=== PATIENT | female | born 1935 | race Two or more races ===

== ENCOUNTER 2018-07-27 11:44 | Inpatient (IN) | payer OTHER | END 2018-08-03 17:47 | disposition home or self-care (01) | LOC: JER 11:44 → JERBED 14:45 → J5S 16:19 ==

== ENCOUNTER 2019-02-04 18:55 | Inpatient (IN) | payer OTHER ==
[2019-02-04] MEDS ORDERED: ALBUTEROL SO4 2.5/IPRATROPIUM 0.5 INH SOL 3 ML VIAL.NEB. NEB ONE ×3 (19:04→21:04)
[2019-02-04] MEDS ORDERED: DEXAMETHASONE SOD PHOSPHATE 10 MG/1 ML VIAL ONE (19:05)
--- NOTE | 2019-02-04 19:23 | PDOC ---
History of Present Illness - General Stated Complaint: SOB Time Seen by Provider: 02/04/19 19:22 History Source: Patient Exam Limitations: No Limitations - History of Present Illness Initial Comments: 02/04/19 19:41 83yF w PMHx asthma, HTN, HLD, HFpEF, obesity presenting w SOB and cough. Had white productive cough for past 4 days. 2 days ago gradual onset SOB and BLE swelling. Did not take maintenance asthma medication for last 3d d/t cough and malaise. Rescue inhaler did not work. Last echo 07/30/18 showed normal LVEF 60-65 %, grade 1 diastolic dysfunction. Last admission for asthma exacerbation was over a year ago. Denies fever, nausea/vomiting, chest/AB pain. Does not have orthopedic physical therapist. Took lasix for a short time in the summertime, did not continue bc prescription ran out. Past History - Past Medical History Allergies/Adverse Reactions: Allergies Allergy/AdvReac Type Severity Reaction Status Date / Time amlodipine Allergy Verified 02/04/19 20:23 bacitracin Allergy Verified 02/04/19 20:23 Home Medications: Ambulatory Orders [place] 3-6-9 1,200 mg Softgel 2 tab PO BID 09/11/15 Fenofibrate [Lipofen] 1 tab PO DAILY 03/30/18 Fluticasone Propionate [Flovent Diskus] 1 puff IH BID 03/30/18 Losartan Potassium 1 tab PO DAILY 03/30/18 Montelukast Sodium [Singulair] 10 mg PO DAILY 03/30/18 Omeprazole 40 mg PO AM 07/27/18 Gabapentin 300 mg PO DAILY 02/04/19 Nifedipine [Nifedipine ER] 60 mg PO DAILY 02/04/19 Anemia: No Asthma: Yes Cancer: No Cardiac Disorders: No CVA: No COPD: No CHF: No DVT: No Dementia: No Diabetes: No Dialysis: No GI Disorders: Yes (GERD) Disorders: No HTN: Yes Hypercholesterolemia: No Kidney Stones: No Liver Disease: No Psychiatric Problems: No Seizures: No Thyroid Disease: No Lung CA: No - Surgical History Abdominal Surgery: No Appendectomy: No Cardiac Surgery: No Cholecystectomy: Yes Gastric Stapling: No GI Surgery: No Lung Surgery: No Neurologic Surgery: No - Immunization History Immunization Up to Date: Yes - Psycho Social/Smoking Cessation Hx Smoking Status: No Smoking History: Never smoked Have you smoked in the past 12 months: No Number of Cigarettes Smoked Daily: 0 Information on smoking cessation initiated: No Hx Alcohol Use: No Drug/Substance Use Hx: No Review of Systems - Review of Systems Constitutional: No: Chills, Fever HEENTM: No: Eye Pain, Ear Discharge, Nose Congestion, Hearing Loss Respiratory: Yes: Cough, Shortness of Breath Cardiac (ROS): No: Chest Pain, Palpitations ABD/GI: No: Abdominal Distended, Constipated, Diarrhea, Nausea, Vomiting : No: Burning, Dysuria, Frequency Musculoskeletal: No: Back Pain, Muscle Pain Integumentary: No: Bruising, Dryness, Erythema Neurological: No: Headache, Numbness, Seizure, Tingling Psychiatric: No: Anxiety, Depression, Stressors Endocrine: No: Excessive Sweating, Flushing, Intolerance to Cold, Intolerance to Heat Hematologic/Lymphatic: No: Anemia, Blood Clots *Physical Exam - Vital Signs Last Vital Signs Temp Pulse Resp BP Pulse Ox 99.2 F 89 24 H 135/63 99 02/04/19 19:08 02/04/19 19:08 02/04/19 19:08 02/04/19 19:08 02/04/19 19:08 - Physical Exam General Appearance: Yes: Nourished, Appropriately Dressed, Mild Distress HEENT: positive: EOMI, CHRIS, Normal Voice, Hearing Grossly Normal. negative: Scleral Icterus (R), Scleral Icterus (L), Nasal Congestion, Rhinorrhea Respiratory/Chest: positive: Wheezing. negative: Chest Tender, Respiratory Distress (on 5L NC), Accessory Muscle Use, Labored Respiration, Crackles, Rhonchi, Stridor Cardiovascular: positive: Regular Rhythm, Regular Rate, S1, S2. negative: Murmur Extremity: positive: Swelling (+1 pitting edema to knees krystal) Integumentary: positive: Normal Color Neurologic: positive: inspector hot forgings II-XII NML intact, Fully Oriented, Alert, Normal Response, Responsive. negative: Numbness, Confused, Disoriented ED Treatment Course - LABORATORY CBC & Chemistry Diagram: 02/04/19 20:10 02/04/19 20:10 Medical Decision Making - Medical Decision Making 02/04/19 19:50 CBC CMP trop BNP CXR shows R chest infiltrates, krystal basilar effusions EKG shows NSR, HR 86, QTc 428, no ST changes duonebx4, decadron given by EMS, 1 Mg, azithromycin, ceftriaxone for PNA, 20 IV lasix WBC 10.4 w left shift, trop 0.09, BNP 1600, BG 213 --- 83yF w PMHx asthma, HTN, HLD, HFpEF, obesity presenting w 2d gradual SOB, cough , BLE edema d/t asthma exacerbation (wheezing) and CHF exacerbation (BLE edema, elevated BNP, lung infiltrates) and PNA (L lung infiltrates, leukocytosis w L shift). Breathing 5L NC (baseline RA). Has elevated 1st trop 0.09. Low concern for ACS (chest pain/SOB not exacerbated w motion, NSR EKG). Admit tele hospitalist for asthma exacerbation, community acquired pneumonia, CHF exacerbation, elevated trop, hyperglycemia - pending 2nd trop PCP Dr Ang Discharge - Discharge Information Problems reviewed: Yes Clinical Impression/Diagnosis: Acute respiratory failure with hypoxia, Elevated troponin Asthma exacerbation Qualifiers: Asthma severity: moderate Asthma persistence: persistent Qualified Code(s): J45.41 - Moderate persistent asthma with (acute) exacerbation CHF exacerbation Qualifiers: Heart failure type: unspecified Qualified Code(s): I50.9 - Heart failure, unspecified Community acquired pneumonia Qualifiers: Laterality: right Lung location: unspecified part of lung Qualified Code(s): J18.9 - Pneumonia, unspecified organism Condition: Improved - Follow up/Referral - Patient Discharge Instructions - Post Discharge Activity
[2019-02-04] MEDS ORDERED: MAGNESIUM SULF 50% (8.12 MEQ/2 ML-1 GM VIAL) IVPB ONE (19:40)
[2019-02-04] MEDS ORDERED: MAGNESIUM 1GM/D5W - 1 GM/100 ML IVPB IVPB ONE (19:49)
--- NOTE | 2019-02-04 20:15 | PDOC ---
Documentation entered by Bella Castano SCRIBE, acting as scribe for Felicia Pool MD. Felicia Pool MD: This documentation has been prepared by the Omaira stone Brenda, SCRIBE, under my direction and personally reviewed by me in its entirety. I confirm that the documentation accurately reflects all work, treatment, procedures, and medical decision making performed by me. Attending Attestation - Resident Resident Name: Chucho Lomeli - ED Attending Attestation I have performed the following: I have examined & evaluated the patient, The case was reviewed & discussed with the resident, I agree w/resident's findings & plan, Exceptions are as noted - HPI HPI: 02/04/19 20:05 recent 83-year-old female who presents with shortness of breath that started late Monday early Monday. Past medical history hypertension asthma and sciatica - Physicial Exam PE: 02/04/19 20:59 Obesity 83-year-old female brought in by ambulance for shortness of breath for several days Head normocephalic atraumatic Neck is supple Lungs scattered wheezing and coarse rhonchi CVS regular rate and rhythm S1-S2 Abdomen protuberant Skin warm and dry Neuro alert and oriented x3 no gross focal neuro deficits appreciated - Medical Decision Making 02/04/19 20:10 Review of systems positive for dyspnea and coughAnd presents with significant tachypnea and respiratory rate of 24 Denies nausea vomiting ,fever ,chills 02/04/19 20:15 She does have orthopnea and sleeps upright on several pillows medications include Lasix, Flovent, Singulair [facility]ics gave her 3 duo nebs and Decadron she presents with expiratory wheezing Differential includes asthma,PNA,ACS,CHF plan cxr,trop.ekg.[id number],comp 02/04/19 21:01 Chest x-ray shows congestive heart failure cannot rule out infiltrate, small right pleural effusion Plan IV antibiotics ,diuretics,resp treatments
[2019-02-04 20:30] LABS: BASO % 0.2 % (0-2.0); HEMATOCRIT 36.9 % (32.4-45.2); HEMOGLOBIN 12.4 GM/dL (10.7-15.3); LYMPH % 6.9 % (8-40); MCH 30.8 pg (25.7-33.7); MCHC 33.6 g/dl (32.0-36.0); MEAN CELL VOLUME 91.4 fl (80-96); MEAN PLT VOLUME 9.3 fl (7.5-11.1); MONO % 7.4 % (3.8-10.2); NEUT % 85.5 % (42.8-82.8); PLATELET COUNT 172 K/MM3 (134-434); RBC 4.03 M/mm3 (3.60-5.2); RDW 13.9 % (11.6-15.6); WHITE BLOOD COUNT 10.4 K/mm3 (4.0-10.0)
[2019-02-04 20:45] LABS: INR 1.25 (0.83-1.09); PROTHROMBIN TIME (PATIENT) 14.8 SEC (9.7-13.0)
[2019-02-04] MEDS ORDERED: AZITHROMYCIN IVPB 500 MG in DEXTROSE 5%-WATER - 250 ML IVPB ONE (20:58)
[2019-02-04] MEDS ORDERED: CEFTRIAXONE 1,000 MG in DEXTROSE 5%-WATER - 50 ML IVPB ONE (20:58)
[2019-02-04 21:03] LABS: ALBUMIN 2.8 g/dl (3.4-5.0); BILIRUBIN,TOTAL 0.7 mg/dL (0.2-1); CALCIUM 8.4 mg/dL (8.5-10.1); CREATININE 1.1 mg/dL (0.55-1.3); N-TERMINAL BNP 1641.7 pg/ml (5-450); POTASSIUM 4.6 mmol/L (3.5-5.1); TOT PROT 6.5 g/dl (6.4-8.2)
[2019-02-04] MEDS ORDERED: FUROSEMIDE 40 MG/4 ML INJECTABLE VIAL IVPUSH ONE (21:03)
[2019-02-04] MEDS ORDERED: CEFTRIAXONE 1 GM/50 ML BAG ONE (21:04)
[2019-02-04] MEDS ORDERED: AZITHROMYCIN IVPB 500 MG/250 ML BAG IVPB ONE (21:04)
[2019-02-04] MEDS ORDERED: FUROSEMIDE 40 MG/4 ML INJECTABLE VIAL ONE (21:26)
--- NOTE | 2019-02-05 00:34 | HP ---
Admitting History and Physical - Primary Care Physician PCP: Dr. Nunez - Admission Chief Complaint: SOB, Cough, congestion History of Present Illness: 83 year old female with PMHx of COPD/asthma, HTN, HLD, HFpEF, obesity arrived to emergency room via EMS for SOB and cough, productive cough (clear phelgm) for past 4 days. Patient also noticed 2 days ago gradual onset SOB and BLE swelling. Did not take maintenance asthma medication for last 3d d/t cough and malaise. Rescue inhaler did not work. Last echo 07/30/18 showed normal LVEF 60-65 %, grade 1 diastolic dysfunction. Last admission for asthma exacerbation was over a year ago. Denies fever, nausea/vomiting, Chest pain. 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 Cardiovascular: Yes: CHF, HTN, Hyperlipdemia Pulmonary: Yes: Asthma, COPD Gastrointestinal: Yes: GERD - Past Surgical History Past Surgical History: Yes: Cholecystectomy - Smoking History Smoking history: Never smoked Have you smoked in the past 12 months: No Aproximately how many cigarettes per day: 0 - Alcohol/Substance Use Hx Alcohol Use: No History of Substance Use: reports: None - Social History Usual Living Arrangement: Yes: With Child ADL: Independent History of Recent Travel: No Home Medications - Allergies Allergies/Adverse Reactions: Allergies Allergy/AdvReac Type Severity Reaction Status Date / Time amlodipine Allergy Verified 02/04/19 20:23 bacitracin Allergy Verified 02/04/19 20:23 - Home Medications Home Medications: Ambulatory Orders [place] 3-6-9 1,200 mg Softgel 2 tab PO BID 09/11/15 Fenofibrate [Lipofen] 1 tab PO DAILY 03/30/18 Fluticasone Propionate [Flovent Diskus] 1 puff IH BID 03/30/18 Losartan Potassium 1 tab PO DAILY 03/30/18 Montelukast Sodium [Singulair] 10 mg PO DAILY 03/30/18 Omeprazole 40 mg PO AM 07/27/18 Gabapentin 300 mg PO DAILY 02/04/19 Nifedipine [Nifedipine ER] 60 mg PO DAILY 02/04/19 Family Medical History Family History: Denies Family Hx Cancer: Brother (brain ca) Review of Systems - Review of Systems Constitutional: reports: No Symptoms Eyes: reports: No Symptoms HENT: reports: No Symptoms Neck: reports: No Symptoms Cardiovascular: reports: No Symptoms Respiratory: reports: Cough, SOB, Wheezing Gastrointestinal: reports: No Symptoms Genitourinary: reports: No Symptoms Breasts: reports: No Symptoms Reported Musculoskeletal: reports: No Symptoms Integumentary: reports: No Symptoms Neurological: reports: No Symptoms Endocrine: reports: No Symptoms Hematology/Lymphatic: reports: No Symptoms Psychiatric: reports: No Symptoms Physical Examination Vital Signs: Vital Signs Temperature 100.2 F H 02/04/19 20:46 Pulse Rate 83 02/04/19 21:32 Respiratory Rate 22 H 02/04/19 21:32 Blood Pressure 139/57 L 02/04/19 21:32 O2 Sat by Pulse Oximetry (%) 99 02/04/19 21:32 Constitutional: Yes: No Distress, Calm Eyes: Yes: Conjunctiva Clear, EOM Intact HENT: Yes: Atraumatic, Normocephalic Neck: Yes: Supple, Trachea Midline Cardiovascular: Yes: Regular Rate and Rhythm, S1, S2 Respiratory: Yes: Regular, On Nasal O2, Rhonchi, SOB, Wheezes Gastrointestinal: Yes: Normal Bowel Sounds, Soft Musculoskeletal: Yes: WNL Extremities: Yes: WNL Edema: Yes Edema: LLE: 3+, RLE: 3+ Peripheral Pulses WNL: Yes Neurological: Yes: Alert, Oriented Labs: CBC, BMP 02/04/19 20:10 02/04/19 20:10 Imaging - Results Chest X-ray: Report Reviewed (CXR: Right side infiltrates, b/l effusions) EKG: Report Reviewed (EKG:shows NSR, HR 86, QTc 428, no ST changes) Problem List - Problems (1) Acute respiratory failure with hypoxia Code(s): J96.01 - ACUTE RESPIRATORY FAILURE WITH HYPOXIA (2) Community acquired pneumonia Code(s): J18.9 - PNEUMONIA, UNSPECIFIED ORGANISM Qualifiers: Laterality: right Lung location: unspecified part of lung Qualified Code( s): J18.9 - Pneumonia, unspecified organism (3) COPD with acute exacerbation Code(s): J44.1 - CHRONIC OBSTRUCTIVE PULMONARY DISEASE W (ACUTE) EXACERBATION (4) CHF exacerbation Code(s): I50.9 - HEART FAILURE, UNSPECIFIED Qualifiers: Heart failure type: unspecified Qualified Code(s): I50.9 - Heart failure, unspecified (5) Elevated troponin Code(s): R79.89 - OTHER SPECIFIED ABNORMAL FINDINGS OF BLOOD CHEMISTRY (6) HLD (hyperlipidemia) Code(s): E78.5 - HYPERLIPIDEMIA, UNSPECIFIED (7) GERD (gastroesophageal reflux disease) Code(s): K21.9 - GASTRO-ESOPHAGEAL REFLUX DISEASE WITHOUT ESOPHAGITIS (8) Peripheral neuropathy Code(s): G62.9 - POLYNEUROPATHY, UNSPECIFIED (9) Hypertension Code(s): I10 - ESSENTIAL (PRIMARY) HYPERTENSION Assessment/Plan 83 year old female with PMHx of COPD/asthma, HTN, HLD, HFpEF, obesity arrived to emergency room via EMS for SOB and cough, productive cough (clear phelgm) for past 4 days. Patient also noticed 2 days ago gradual onset SOB and BLE swelling. # Elevated trop likely demand ishemia r/o ACS EKG shows NSR, HR 86, QTc 428, no ST changes Trop 0.09, follow up # 2 - follow up cardiology #Acute respiratory failure # Community acquired Pneumonia # COPD exacerbation vs CHF exacerbation decadron 1Mg given by EMS CXR shows: right sided infiltrates, b/l effusions WBC 10.4 w left shift BNP 1641.7 In ED given : duonebx4, azithromycin, ceftriaxone, 20 IV lasix -continue with duoneb QID -Montelukast Sodium 10 mg PO DAILY -continue with solu-medrol 40 mg Q8h -continue with o2 via NC -continue with lasix 40 mg IV push daily -continue with Rocephin and azithromycin Monitor I&O fluids restriction Elevate extremity daily weight follow up cbc,cmp follow up pulmo consult follow up cardio consult follow up ID #[id number] -Fenofibrate 1 tab PO DAILY -Losartan Potassium 1 tab PO DAILY -Nifedipine 60 mg PO DAILY # GERD -Omeprazole 40 mg PO AM # Peripheral neuropathy -Gabapentin 300 mg PO DAILY Dispo: Tele inpatient FEN: Na restricted diet, monitor lytes VTE: Heparin SQ TID Visit type - Emergency Visit Emergency Visit: Yes ED Registration Date: 02/04/19 Care time: The patient presented to the Emergency Department on the above date and was hospitalized for further evaluation of their emergent condition. - New Patient This patient is new to me today: Yes Date on this admission: 02/05/19 - Critical Care Critical Care patient: No
[2019-02-05] MEDS ORDERED: ACETAMINOPHEN 325 MG TABLET (FP) PO PRN (00:48)
[2019-02-05] MEDS ORDERED: ACETAMINOPHEN 325 MG TABLET (FP) ONE (02:00)
[2019-02-05] MEDS ORDERED: methylPREDNISolone NA SUCC 40 MG/1 ML VIAL ONE ×2 (02:00→16:54)
[2019-02-05] MEDS: methylPREDNISolone NA SUCC 40 MG/1 ML VIAL IVPUSH SCH ×3 (02:07→17:25)
[2019-02-05] MEDS ORDERED: HEPARIN NA (PORCINE) 5,000 UNITS/ML 1ML VIAL ONE ×2 (06:29→15:14)
[2019-02-05] MEDS ORDERED: PANTOPRAZOLE SODIUM 40 MG VIAL ONE (06:30)
[2019-02-05] MEDS: HEPARIN NA (PORCINE) 5,000 UNITS/ML 1ML VIAL SQ SCH ×3 (06:32→21:32)
[2019-02-05] MEDS ORDERED: PATIENT'S OWN MEDICATION (NON-FORMULARY) (Omeprazole [Omeprazole] 40 MG) PO SCH (07:00)
[2019-02-05] MEDS: PANTOPRAZOLE 40 MG TABLET (FP) PO SCH (07:03)
[2019-02-05 07:13] LABS: HEMATOCRIT 35.5 % (32.4-45.2); MCHC 33.9 g/dl (32.0-36.0); MEAN CELL VOLUME 91.4 fl (80-96); MEAN PLT VOLUME 9.2 fl (7.5-11.1); PLATELET COUNT 178 K/MM3 (134-434); RBC 3.88 M/mm3 (3.60-5.2); RDW 13.8 % (11.6-15.6)
[2019-02-05 07:44] LABS: ALBUMIN 2.7 g/dl (3.4-5.0); BILIRUBIN,TOTAL 0.4 mg/dL (0.2-1); BLOOD UREA NITROGEN 25.5 mg/dL (7-18); CALCIUM 8.7 mg/dL (8.5-10.1); CREATININE 1.2 mg/dL (0.55-1.3); POTASSIUM 4.3 mmol/L (3.5-5.1); TOT PROT 6.5 g/dl (6.4-8.2)
[2019-02-05] MEDS: ALBUTEROL SO4 2.5/IPRATROPIUM 0.5 INH SOL 3 ML VIAL.NEB. NEB SCH ×4 (08:30→22:12)
[2019-02-05] MEDS ORDERED: ALBUTEROL SO4 2.5/IPRATROPIUM 0.5 INH SOL 3 ML VIAL.NEB. NEB ONE ×2 (08:53→12:31)
--- NOTE | 2019-02-05 09:45 | EKG ---
Test Reason : Blood Pressure : / mmHG Vent. Rate : 086 BPM Atrial Rate : 086 BPM P-R Int : 160 ms QRS Dur : 092 ms QT Int : 358 ms P-R-T Axes : 030 034 058 degrees QTc Int : 428 ms NORMAL SINUS RHYTHM NORMAL ECG WHEN COMPARED WITH ECG OF 28-AUG-2012 17:50, QT HAS LENGTHENED Confirmed by MD Landon, Rodrigo ([id number]) on 02/05/2019 9:44:55 AM Referred By: Confirmed By:Rodrigo Navarrete MD
[2019-02-05] MEDS ORDERED: FLUTICASONE PROPIONATE IH SCH (10:00)
[2019-02-05] MEDS ORDERED: OMEGA PO SCH (10:00)
[2019-02-05] MEDS ORDERED: PATIENT'S OWN MEDICATION (NON-FORMULARY) (Nifedipine [Nifedipine Er] 60 MG) PO SCH (10:00)
[2019-02-05] MEDS ORDERED: CEFTRIAXONE 1 GM/50 ML BAG ONE (10:01)
[2019-02-05] MEDS ORDERED: AZITHROMYCIN IVPB 500 MG/250 ML BAG IVPB ONE (10:01)
[2019-02-05] MEDS: AZITHROMYCIN IVPB 500 MG in DEXTROSE 5%-WATER - 250 ML IVPB SCH (10:05)
[2019-02-05] MEDS: CEFTRIAXONE 1 GM in DEXTROSE 5%-WATER - 50 ML IVPB SCH (10:10)
[2019-02-05] MEDS: GABAPENTIN 300 MG CAPSULE (FP) PO SCH (10:10)
[2019-02-05] MEDS: OMEGA-3 ACID ETHYL ESTERS (FATTY-ACIDS) 1 GM CAPSULE (FP) PO SCH ×2 (10:10→22:50)
[2019-02-05] MEDS: NIFEdipine E.R 60 MG TABLET (UD) PO SCH (10:10)
--- NOTE | 2019-02-05 11:11 | CON.CARD ---
Consult Consult Specialty:: Cardiology Referred by:: Medicine Reason for Consultation:: CHF - History of Present Illness Chief Complaint: shortness of breath History of Present Illness: 83F h/o COPD/asthma, HTN, HLD, chronic diastolic HF, obesity p/w dyspnea, cough. Started about a week ago, also noticed some swelling in her feet the last couple of days. Took her asthma inhaler a couple of days ago, didn't help so cme to ER. No chest pain, palps, dizziness.Feels better this morning. Does not see a press helper regularly. 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 Cardio/Vascular: Yes: CHF, HTN, Hyperlipdemia Pulmonary: Yes: Asthma, COPD Gastrointestinal: Yes: GERD - Past Surgical History Past Surgical History: Yes: Cholecystectomy - Alcohol/Substance Use Hx Alcohol Use: No History of Substance Use: reports: None - Smoking History Smoking history: Never smoked Have you smoked in the past 12 months: No Aproximately how many cigarettes per day: 0 - Social History ADL: Independent History of Recent Travel: No Home Medications - Allergies Allergies/Adverse Reactions: Allergies Allergy/AdvReac Type Severity Reaction Status Date / Time amlodipine Allergy Verified 02/04/19 20:23 bacitracin Allergy Verified 02/04/19 20:23 - Home Medications Home Medications: Ambulatory Orders [place] 3-6-9 1,200 mg Softgel 2 tab PO BID 09/11/15 Fenofibrate [Lipofen] 1 tab PO DAILY 03/30/18 Fluticasone Propionate [Flovent Diskus] 1 puff IH BID 03/30/18 Losartan Potassium 1 tab PO DAILY 03/30/18 Montelukast Sodium [Singulair] 10 mg PO DAILY 03/30/18 Omeprazole 40 mg PO AM 07/27/18 Gabapentin 300 mg PO DAILY 02/04/19 Nifedipine [Nifedipine ER] 60 mg PO DAILY 02/04/19 Family Medical History Family History: Unremarkable Review of Systems - Review of Systems Constitutional: reports: No Symptoms Eyes: reports: No Symptoms HENT: reports: No Symptoms Neck: reports: No Symptoms Cardiovascular: reports: No Symptoms Respiratory: reports: Cough Gastrointestinal: reports: No Symptoms Genitourinary: reports: No Symptoms Musculoskeletal: reports: No Symptoms Integumentary: reports: No Symptoms Neurological: reports: No Symptoms Endocrine: reports: No Symptoms Hematology/Lymphatic: reports: No Symptoms Psychiatric: reports: No Symptoms Vital Signs: Vital Signs Temperature 98.7 F 02/05/19 00:45 Pulse Rate 69 02/05/19 08:44 Respiratory Rate 23 H 02/05/19 08:44 Blood Pressure 137/97 02/05/19 08:44 O2 Sat by Pulse Oximetry (%) 97 02/05/19 08:44 Constitutional: Yes: No Distress, Calm Eyes: Yes: Conjunctiva Clear, EOM Intact HENT: Yes: Atraumatic, Normocephalic Neck: Yes: Supple, Trachea Midline Respiratory: Yes: Regular, Diminished (bases bilaterally) Gastrointestinal: Yes: Normal Bowel Sounds, Soft Cardiovascular: Yes: Regular Rate and Rhythm JVD: Yes Heart Sounds: Yes: S1, S2 Edema: Yes Edema: LLE: 1+, RLE: 1+ Integumentary: No: Jaundice Neurological: Yes: Alert, Oriented Psychiatric: No: Agitated - Other Data Labs, Other Data: CBC, BMP 02/05/19 06:35 02/05/19 06:35 INR, PTT INR 1.25 (0.83-1.09) H 02/04/19 20:10 Troponin, BNP 02/04/19 02/05/19 02/05/19 20:10 00:28 06:35 Troponin I 0.09 H 0.08 H 0.03 B-Natriuretic Peptide 1641.7 H Troponin, BNP 02/04/19 02/05/19 02/05/19 20:10 00:28 06:35 Troponin I 0.09 H 0.08 H 0.03 B-Natriuretic Peptide 1641.7 H Assessment/Plan EKG: sinus, nl intervals, no ischemic changes tele: sinus, PVCs echo 07/2018 nl LV/RV function, grade I diastolic dysfunction CXR: congestive changes, R infiltrate shortness of breath, acute on chronic diastolic HF - nl LV function on echo 07/2018 - continue IV lasix - monitor Cr, lytes, daily weights with diuresis elevated trop - indeterminate range, flat trend, EKG no ischemic changes - likely demand in setting of CHF exac - unlikely ACS COPD, possible PNA - manage per pulm, ID HTN - cont home meds HLD - cont fenofibrate
[2019-02-05] MEDS: FUROSEMIDE 40 MG/4 ML INJECTABLE VIAL IVPUSH SCH (11:20)
[2019-02-05] MEDS ORDERED: LOSARTAN POTASSIUM 50 MG TABLET (FP) ONE (12:31)
[2019-02-05] MEDS: LOSARTAN POTASSIUM 50 MG TABLET (FP) PO SCH (12:37)
[2019-02-05] MEDS: FENOFIBRIC ACID 135 MG CAP PO SCH (12:37)
[2019-02-05] MEDS: MOMETASONE FUROATE 110 MCG/IH INHALER IH SCH ×2 (12:37→22:49)
[2019-02-05] MEDS: INSULIN SLIDING SCALE (NOVOLOG) 1 VIAL SQ SCH ×2 (12:42→17:25)
--- NOTE | 2019-02-05 13:19 | CON.PULM ---
Consult Consult Specialty:: PULMONARY Referred by:: Dr Nunez Reason for Consultation:: COPD - History of Present Illness Chief Complaint: shortness of breath History of Present Illness: 83yo female with h/o HTN, hyperlipidemia, asthma/COPD, LV diastolic dysfunction who was admitted with worsening shortness of breath x 3 days. No chest pain or palpitations. No fevers, chills or sweats. Daughter sick at home. Did receive her flu shot. Denies cough but with wheezing. Last time she was on prednisone was in July. 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 Cardio/Vascular: Yes: CHF, HTN, Hyperlipdemia Pulmonary: Yes: Asthma, COPD Gastrointestinal: Yes: GERD - Past Surgical History Past Surgical History: Yes: Cholecystectomy - Alcohol/Substance Use Hx Alcohol Use: No History of Substance Use: reports: None - Smoking History Smoking history: Never smoked Have you smoked in the past 12 months: No Aproximately how many cigarettes per day: 0 - Social History ADL: Independent History of Recent Travel: No Home Medications - Allergies Allergies/Adverse Reactions: Allergies Allergy/AdvReac Type Severity Reaction Status Date / Time amlodipine Allergy Verified 02/04/19 20:23 bacitracin Allergy Verified 02/04/19 20:23 - Home Medications Home Medications: Ambulatory Orders [place] 3-6-9 1,200 mg Softgel 2 tab PO BID 09/11/15 Fenofibrate [Lipofen] 1 tab PO DAILY 03/30/18 Fluticasone Propionate [Flovent Diskus] 1 puff IH BID 03/30/18 Losartan Potassium 1 tab PO DAILY 03/30/18 Montelukast Sodium [Singulair] 10 mg PO DAILY 03/30/18 Omeprazole 40 mg PO AM 07/27/18 Gabapentin 300 mg PO DAILY 02/04/19 Nifedipine [Nifedipine ER] 60 mg PO DAILY 02/04/19 Review of Systems - Review of Systems Constitutional: denies: Fever, Weakness Eyes: denies: Recent Change in Vision HENT: denies: Nasal Congestion, Throat Pain Neck: denies: Stiffness, Tenderness Cardiovascular: reports: Chest Pain, Edema, Shortness of Breath. denies: Palpitations Respiratory: reports: SOB, SOB on Exertion, Wheezing. denies: Cough, Hemoptysis Gastrointestinal: denies: Abdominal Pain, Nausea, Vomiting Genitourinary: denies: Dysuria, Hematuria Neurological: denies: Dizziness, Headache Endocrine: denies: Unexplained Weight Loss Physical Exam Vital Sings: Vital Signs Temperature 98.7 F 02/05/19 00:45 Pulse Rate 67 02/05/19 12:52 Respiratory Rate 26 H 02/05/19 12:52 Blood Pressure 120/67 02/05/19 12:52 O2 Sat by Pulse Oximetry (%) 95 02/05/19 12:52 Constitutional: Yes: Calm Eyes: Yes: Conjunctiva Clear, EOM Intact HENT: Yes: Atraumatic, Normocephalic Neck: Yes: Supple, Trachea Midline Cardiovascular: Yes: Regular Rate and Rhythm Respiratory: Yes: Rhonchi ...Clubbing: No Gastrointestinal: Yes: Normal Bowel Sounds, Soft. No: Tenderness Edema: Yes Neurological: Yes: Alert, Oriented Labs: CBC, BMP 02/05/19 06:35 02/05/19 06:35 Imaging - Results Chest X-ray: Report Reviewed, Image Reviewed (right sided infiltrates, pulmonary vascular congestion) Problem List - Problems (1) Pneumonia Code(s): J18.9 - PNEUMONIA, UNSPECIFIED ORGANISM (2) COPD with acute exacerbation Code(s): J44.1 - CHRONIC OBSTRUCTIVE PULMONARY DISEASE W (ACUTE) EXACERBATION Assessment/Plan Pneumonia Acute COPD Exacerbation Acute on Chronic Diastolic Heart Failure HTN Hyperlipidemia - IV antibiotics - f/u cultures - inhaled bronchodilators - short course of medrol - O2 to keep SpO2 >90% - lasix - monitor urine output, creatinine - DVT prophylaxis Thank you for this consult Elvis Wilkins MD
--- NOTE | 2019-02-05 13:26 | PN ---
Progress Note (short form) - Note Progress Note: Examined in ER awake and alert coughing+ dry SOB better Vital Signs - 24 hr 02/04/19 02/04/19 02/04/19 19:08 20:09 20:41 Temperature 99.2 F Pulse Rate 89 Pulse Rate [ Radial] Respiratory 24 H Rate Blood Pressure 135/63 Blood Pressure [Left Arm] O2 Sat by Pulse 99 94 L 95 Oximetry (%) 02/04/19 02/04/19 02/04/19 20:46 20:49 21:32 Temperature 100.2 F H Pulse Rate Pulse Rate [ 82 83 Radial] Respiratory 24 H 22 H Rate Blood Pressure Blood Pressure 135/52 L 139/57 L [Left Arm] O2 Sat by Pulse 95 99 Oximetry (%) 02/05/19 02/05/19 02/05/19 00:45 01:52 03:29 Temperature 98.7 F Pulse Rate Pulse Rate [ 64 63 62 Radial] Respiratory 22 H 18 Rate Blood Pressure Blood Pressure 129/55 L 118/63 136/62 [Left Arm] O2 Sat by Pulse 98 98 96 Oximetry (%) 02/05/19 02/05/19 02/05/19 04:38 08:44 12:52 Temperature Pulse Rate 69 Pulse Rate [ 63 67 Radial] Respiratory 22 H 23 H 26 H Rate Blood Pressure 137/97 Blood Pressure 126/69 120/67 [Left Arm] O2 Sat by Pulse 97 97 95 Oximetry (%) Current Medications Generic Name Dose Route Start Last Admin Trade Name Freq PRN Reason Stop Dose Admin Acetaminophen 650 mg 02/05/19 00:48 02/05/19 02:07 Tylenol - PO 650 mg Q6H PRN Administration PAIN LEVEL 1-5 Albuterol/Ipratropium 1 amp 02/05/19 08:00 02/05/19 12:37 Duoneb - NEB 1 amp RQID ANDRADE Administration Fenofibric Acid 135 mg 02/05/19 10:45 02/05/19 12:37 Trilipix - PO Not Given DAILY ANDRADE Furosemide 40 mg 02/05/19 10:00 02/05/19 11:20 Lasix Injection - IVPUSH 40 mg DAILY ANDRADE Administration Gabapentin 300 mg 02/05/19 10:00 02/05/19 10:10 Neurontin - PO 300 mg DAILY ANDRADE Administration Heparin Sodium (Porcine) 5,000 unit 02/05/19 06:00 02/05/19 06:32 Heparin - SQ 5,000 unit TID ANDRADE Administration Ceftriaxone Sodium 1 gm/ 50 mls @ 100 mls/hr 02/05/19 10:00 02/05/19 10:10 Dextrose IVPB 02/11/19 23:59 100 mls/hr DAILY ANDRADE Administration Protocol Azithromycin 500 mg/ Dextrose 250 mls @ 250 mls/hr 02/05/19 10:00 02/05/19 10 :05 IVPB 02/11/19 20:40 250 mls/hr DAILY ANDRADE Administration Insulin Aspart 1 vial 02/05/19 11:00 02/05/19 12:42 Novolog Vial Sliding Scale - SQ 10 unit TIDAC ANDRADE Administration Protocol Losartan Potassium 100 mg 02/05/19 10:45 02/05/19 12:37 Cozaar - PO 100 mg DAILY ANDRADE Administration Methylprednisolone Sodium Succinate 40 mg 02/05/19 02:00 02/05/19 10:19 Solu-Medrol - IVPUSH 40 mg Q8H-IV ANDRADE Administration Mometasone Furoate 1 puff 02/05/19 10:00 02/05/19 12:37 Asmanex 110mcg - IH Not Given BID ANDRADE Montelukast Sodium 10 mg 02/05/19 22:00 Singulair - PO HS ANDRADE Nifedipine 60 mg 02/05/19 10:00 02/05/19 10:10 Procardia Xl - PO 60 mg DAILY ANDRADE Administration [id number] Ethyl Esters 2 gm 02/05/19 10:00 02/05/19 10:10 Lovaza - PO 2 gm BID ANDRADE Administration Pantoprazole Sodium 40 mg 02/05/19 07:00 02/05/19 07:03 Protonix - PO 40 mg AM ANDRADE Administration Laboratory Results - last 24 hr 02/04/19 02/04/19 02/04/19 20:10 20:10 20:10 WBC 10.4 H RBC 4.03 Hgb 12.4 Hct 36.9 MCV 91.4 MCH 30.8 MCHC 33.6 RDW 13.9 Plt Count 172 D MPV 9.3 D Absolute Neuts (auto) 8.9 H Neutrophils % 85.5 H D Lymphocytes % 6.9 L D Monocytes % 7.4 Eosinophils % 0.0 D Basophils % 0.2 Nucleated RBC % 0 PT with INR 14.80 H INR 1.25 H Sodium 140 Potassium 4.6 Chloride 107 Carbon Dioxide 25 Anion Gap 8 BUN 20.0 H Creatinine 1.1 Est GFR (CKD-EPI)AfAm 54.53 Est GFR (CKD-EPI)NonAf 47.05 POC Glucometer Random Glucose 213 H Calcium 8.4 L Total Bilirubin 0.7 AST 51 H ALT 32 Alkaline Phosphatase 65 Creatine Kinase 152 Creatine Kinase Index 1.5 CK-MB (CK-2) 2.3 Troponin I 0.09 H B-Natriuretic Peptide 1641.7 H Total Protein 6.5 Albumin 2.8 L Influenza A (Rapid) Influenza B (Rapid) 02/05/19 02/05/19 02/05/19 00:28 06:35 06:35 WBC 7.0 RBC 3.88 Hgb 12.0 Hct 35.5 MCV 91.4 MCH 31.0 MCHC 33.9 RDW 13.8 Plt Count 178 MPV 9.2 Absolute Neuts (auto) Neutrophils % Lymphocytes % Monocytes % Eosinophils % Basophils % Nucleated RBC % PT with INR INR Sodium 140 Potassium 4.3 Chloride 105 Carbon Dioxide 26 Anion Gap 9 BUN 25.5 H Creatinine 1.2 Est GFR (CKD-EPI)AfAm 49.08 Est GFR (CKD-EPI)NonAf 42.35 POC Glucometer Random Glucose 271 H Calcium 8.7 Total Bilirubin 0.4 AST 22 ALT 28 Alkaline Phosphatase 64 Creatine Kinase Creatine Kinase Index CK-MB (CK-2) Troponin I 0.08 H B-Natriuretic Peptide Total Protein 6.5 Albumin 2.7 L Influenza A (Rapid) Influenza B (Rapid) 02/05/19 02/05/19 02/05/19 06:35 11:20 12:41 WBC RBC Hgb Hct MCV MCH MCHC RDW Plt Count MPV Absolute Neuts (auto) Neutrophils % Lymphocytes % Monocytes % Eosinophils % Basophils % Nucleated RBC % PT with INR INR Sodium Potassium Chloride Carbon Dioxide Anion Gap BUN Creatinine Est GFR (CKD-EPI)AfAm Est GFR (CKD-EPI)NonAf POC Glucometer 356 Random Glucose Calcium Total Bilirubin AST ALT Alkaline Phosphatase Creatine Kinase Creatine Kinase Index CK-MB (CK-2) Troponin I 0.03 B-Natriuretic Peptide Total Protein Albumin Influenza A (Rapid) Negative Influenza B (Rapid) Negative S1 S2 RRR Lungs ronchi B.L crackles+ JVD+ Abd- soft, obese, NT trace edema PLAN IV Lasix monitor renal function , I and O iv solumedrol nebs IV antibiotics urine antigens negative Influenza negative Problem List - Problems (1) Acute respiratory failure with hypoxia Code(s): J96.01 - ACUTE RESPIRATORY FAILURE WITH HYPOXIA (2) Asthma exacerbation Code(s): J45.901 - UNSPECIFIED ASTHMA WITH (ACUTE) EXACERBATION Qualifiers: Asthma severity: moderate Asthma persistence: persistent Qualified Code(s ): J45.41 - Moderate persistent asthma with (acute) exacerbation (3) CHF exacerbation Code(s): I50.9 - HEART FAILURE, UNSPECIFIED Qualifiers: Heart failure type: unspecified Qualified Code(s): I50.9 - Heart failure, unspecified (4) COPD with acute exacerbation Code(s): J44.1 - CHRONIC OBSTRUCTIVE PULMONARY DISEASE W (ACUTE) EXACERBATION (5) Community acquired pneumonia Code(s): J18.9 - PNEUMONIA, UNSPECIFIED ORGANISM Qualifiers: Laterality: right Lung location: unspecified part of lung Qualified Code( s): J18.9 - Pneumonia, unspecified organism (6) GERD (gastroesophageal reflux disease) Code(s): K21.9 - GASTRO-ESOPHAGEAL REFLUX DISEASE WITHOUT ESOPHAGITIS (7) HLD (hyperlipidemia) Code(s): E78.5 - HYPERLIPIDEMIA, UNSPECIFIED
--- NOTE | 2019-02-05 14:46 | CON.ID ---
Consult - History of Present Illness History of Present Illness: 83 y.o. female with PMH of asthma/COPD, diastolic HF, HTN, HLD, and cellulitis presents with c/o SOB, cough and weakness that started one week ago. States that she took several days off from work since. In addition she has been having some b/l LE edema. In the past she on Lasix but states she was taken off of it about 5 months ago. Denies recent travel but states her daughter has had a cough as well. Pt states she had her flu vaccination a few months ago. Denies fever or chills, rhinorrhea, sore throat. Denies abd pain/n/v/d. In the ER she was noted to be wheezing, in mild respiratory distress, with temp of 100.4F and wbc of 10.4K. CXR reveals congestive changes as well as Rt sided pulmonary infiltrates. In addition her glucose was significantly elevated. She denies previous diagnosis of DM. Currently she states she is feeling better. - History Source History Provided By: Patient - Past Medical History [employer]: Yes: Peripheral Neuropathy Cardio/Vascular: Yes: CHF, HTN, Hyperlipdemia Pulmonary: Yes: Asthma, COPD Gastrointestinal: Yes: GERD - Past Surgical History Past Surgical History: Yes: Cholecystectomy - Alcohol/Substance Use Hx Alcohol Use: No History of Substance Use: reports: None - Smoking History Smoking history: Never smoked Have you smoked in the past 12 months: No Aproximately how many cigarettes per day: 0 - Social History ADL: Independent History of Recent Travel: No Home Medications - Allergies Allergies/Adverse Reactions: Allergies Allergy/AdvReac Type Severity Reaction Status Date / Time amlodipine Allergy Verified 02/04/19 20:23 bacitracin Allergy Verified 02/04/19 20:23 - Home Medications Home Medications: Ambulatory Orders [place] 3-6-9 1,200 mg Softgel 2 tab PO BID 09/11/15 Fenofibrate [Lipofen] 1 tab PO DAILY 03/30/18 Fluticasone Propionate [Flovent Diskus] 1 puff IH BID 03/30/18 Losartan Potassium 1 tab PO DAILY 03/30/18 Montelukast Sodium [Singulair] 10 mg PO DAILY 03/30/18 Omeprazole 40 mg PO AM 07/27/18 Gabapentin 300 mg PO DAILY 02/04/19 Nifedipine [Nifedipine ER] 60 mg PO DAILY 02/04/19 Review of Systems - Review of Systems Constitutional: reports: Weakness. denies: No Symptoms, Chills, Diaphoresis, Fever, Lethargy, Loss of Appetite, Malaise, Night Sweats, Unintentional Wgt. Loss, Other Eyes: reports: No Symptoms. denies: Blind Spots, Blurred Vision, Double Vision , Eye Pain, Floaters, Photophobia, Recent Change in Vision, Other HENT: reports: No Symptoms. denies: Difficult Swallowing, Ear Discharge, Ear Pain, Epistaxis, Gingival Bleeding, Hearing Loss, Mouth Swelling, Nasal Congestion, Ocular Prosthesis, Throat Pain, Toothache, Ringing in Ears, Other Neck: reports: No Symptoms. denies: Decreased ROM, Lumps, Pain on Movement, Stiffness, Swollen Glands, Tenderness, Other Cardiovascular: reports: No Symptoms, Shortness of Breath. denies: Chest Pain, Edema, Palpitations, Other Respiratory: reports: Cough, SOB Gastrointestinal: reports: No Symptoms. denies: Abdominal Pain, Bloating, Constipation, Diarrhea, Dysphagia, Indigestion, Melena, Nausea, Rectal Bleeding , Vomiting, Vomiting Blood, Other Genitourinary: reports: No Symptoms. denies: Burning, Discharge, Dysuria, Flank Pain, Frequency, Hematuria, Incontinence, Lesions, Menses, Pain, Testicular Mass, Testicular Pain, Testicular Swelling, Urgency, Vaginal Bleeding , Other Breasts: reports: No Symptoms Reported. denies: See HPI, Breast Implants, Discharge from Nipple, Lumps, Pain, Skin Changes, Other Musculoskeletal: reports: No Symptoms. denies: Back Pain, Crepitus, Decreased ROM, Extremity Pain, Joint Pain, Joint Swelling, Muscle Pain, Muscle Cramps, Muscle Weakness, Other Integumentary: reports: No Symptoms. denies: Blister, Bruising, Change in Color , Eczema, Erythema, Incision, Lesions, Lump, Pallor, Pruritis, Rash, Wound, Other Neurological: reports: No Symptoms. denies: Change in LOC, Change in Speech, Confusion, Dizziness, Headache, Incoordination, Numbness, Parasthesia, Pre- Existing Deficit, Seizure, Syncope, Tremors, Unsteady Gait, Weakness, Other Endocrine: reports: No Symptoms. denies: Excessive Sweating, Flushing, Increased Hunger, Increased Thirst, Intolerance to Cold, Intolerance to Heat, Unexplained Weight Gain, Unexplained Weight Loss, Other Hematology/Lymphatic: reports: No Symptoms. denies: Easily Bruised, Excessive Bleeding, Swollen Glands, Other Psychiatric: reports: No Symptoms. denies: Altered Sleep Pattern, Anxiety, Depression, Hallucinations, Panic, Paranoia, Suicidal, Other Physical Exam Vital Signs: Vital Signs Temperature 98.7 F 02/05/19 00:45 Pulse Rate 67 02/05/19 12:52 Respiratory Rate 26 H 02/05/19 12:52 Blood Pressure 120/67 02/05/19 12:52 O2 Sat by Pulse Oximetry (%) 95 02/05/19 12:52 Constitutional: Yes: Well Nourished, No Distress, Calm Eyes: Yes: Conjunctiva Clear, EOM Intact HENT: Yes: Atraumatic, Normocephalic Neck: Yes: Supple, Trachea Midline Cardiovascular: Yes: Regular Rate and Rhythm Respiratory: Yes: Rhonchi, Wheezes Gastrointestinal: Yes: Normal Bowel Sounds, Soft, Abdomen, Obese Renal/: Yes: WNL Musculoskeletal: Yes: WNL Extremities: Yes: WNL Edema: Yes Edema: LLE: 1+, RLE: 1+ Peripheral Pulses WNL: Yes Integumentary: Yes: WNL Neurological: Yes: Alert, Oriented Psychiatric: Yes: Alert Labs: CBC, BMP 02/05/19 06:35 02/05/19 06:35 Laboratory Tests 02/04/19 02/04/19 02/04/19 20:10 20:10 20:10 WBC 10.4 H RBC 4.03 Hgb 12.4 Hct 36.9 MCV 91.4 MCH 30.8 MCHC 33.6 RDW 13.9 Plt Count 172 D MPV 9.3 D Absolute Neuts (auto) 8.9 H Neutrophils % 85.5 H D Lymphocytes % 6.9 L D Monocytes % 7.4 Eosinophils % 0.0 D Basophils % 0.2 Nucleated RBC % 0 PT with INR 14.80 H INR 1.25 H Sodium 140 Potassium 4.6 Chloride 107 Carbon Dioxide 25 Anion Gap 8 BUN 20.0 H Creatinine 1.1 Est GFR (CKD-EPI)AfAm 54.53 Est GFR (CKD-EPI)NonAf 47.05 POC Glucometer Random Glucose 213 H Calcium 8.4 L Total Bilirubin 0.7 AST 51 H ALT 32 Alkaline Phosphatase 65 Creatine Kinase 152 Creatine Kinase Index 1.5 CK-MB (CK-2) 2.3 Troponin I 0.09 H B-Natriuretic Peptide 1641.7 H Total Protein 6.5 Albumin 2.8 L Influenza A (Rapid) Influenza B (Rapid) 02/05/19 02/05/19 02/05/19 00:28 06:35 06:35 WBC 7.0 RBC 3.88 Hgb 12.0 Hct 35.5 MCV 91.4 MCH 31.0 MCHC 33.9 RDW 13.8 Plt Count 178 MPV 9.2 Absolute Neuts (auto) Neutrophils % Lymphocytes % Monocytes % Eosinophils % Basophils % Nucleated RBC % PT with INR INR Sodium 140 Potassium 4.3 Chloride 105 Carbon Dioxide 26 Anion Gap 9 BUN 25.5 H Creatinine 1.2 Est GFR (CKD-EPI)AfAm 49.08 Est GFR (CKD-EPI)NonAf 42.35 POC Glucometer Random Glucose 271 H Calcium 8.7 Total Bilirubin 0.4 AST 22 ALT 28 Alkaline Phosphatase 64 Creatine Kinase Creatine Kinase Index CK-MB (CK-2) Troponin I 0.08 H B-Natriuretic Peptide Total Protein 6.5 Albumin 2.7 L Influenza A (Rapid) Influenza B (Rapid) 02/05/19 02/05/19 02/05/19 06:35 11:20 12:41 WBC RBC Hgb Hct MCV MCH MCHC RDW Plt Count MPV Absolute Neuts (auto) Neutrophils % Lymphocytes % Monocytes % Eosinophils % Basophils % Nucleated RBC % PT with INR INR Sodium Potassium Chloride Carbon Dioxide Anion Gap BUN Creatinine Est GFR (CKD-EPI)AfAm Est GFR (CKD-EPI)NonAf POC Glucometer 356 Random Glucose Calcium Total Bilirubin AST ALT Alkaline Phosphatase Creatine Kinase Creatine Kinase Index CK-MB (CK-2) Troponin I 0.03 B-Natriuretic Peptide Total Protein Albumin Influenza A (Rapid) Negative Influenza B (Rapid) Negative Imaging - Results Chest X-ray: Report Reviewed Problem List - Problems (1) Acute respiratory failure with hypoxia Code(s): J96.01 - ACUTE RESPIRATORY FAILURE WITH HYPOXIA (2) Asthma exacerbation Code(s): J45.901 - UNSPECIFIED ASTHMA WITH (ACUTE) EXACERBATION Qualifiers: Asthma severity: moderate Asthma persistence: persistent Qualified Code(s ): J45.41 - Moderate persistent asthma with (acute) exacerbation (3) CHF exacerbation Code(s): I50.9 - HEART FAILURE, UNSPECIFIED Qualifiers: Heart failure type: unspecified Qualified Code(s): I50.9 - Heart failure, unspecified (4) Community acquired pneumonia Code(s): J18.9 - PNEUMONIA, UNSPECIFIED ORGANISM Qualifiers: Laterality: right Lung location: unspecified part of lung Qualified Code( s): J18.9 - Pneumonia, unspecified organism (5) GERD (gastroesophageal reflux disease) Code(s): K21.9 - GASTRO-ESOPHAGEAL REFLUX DISEASE WITHOUT ESOPHAGITIS (6) HLD (hyperlipidemia) Code(s): E78.5 - HYPERLIPIDEMIA, UNSPECIFIED (7) Hypertension Code(s): I10 - ESSENTIAL (PRIMARY) HYPERTENSION (8) Venous insufficiency Code(s): I87.2 - VENOUS INSUFFICIENCY (CHRONIC) (PERIPHERAL) Assessment/Plan 83 y.o. female with PMH of asthma/COPD, diastolic HF, HTN, HLD, and cellulitis presents with c/o SOB, cough and weakness that started one week ago PNA Asthma/COPD exacerbation CHF Fever Hyperglycemia HTN HLD Obesity -- continue Ceftriaxone/Azithromycin -- Urinary Ag neg -- on BD, steroids -- monitor temps/vitals Will follow Thank you
[2019-02-05] MEDS: MONTELUKAST NA 10 MG TABLET PO SCH (21:32)
[2019-02-06 02:05] VITALS: BMI 35.7
[2019-02-06] MEDS: methylPREDNISolone NA SUCC 40 MG/1 ML VIAL IVPUSH SCH ×3 (02:16→17:27)
[2019-02-06] MEDS: INSULIN SLIDING SCALE (NOVOLOG) 1 VIAL SQ SCH ×3 (06:10→17:26)
[2019-02-06] MEDS: HEPARIN NA (PORCINE) 5,000 UNITS/ML 1ML VIAL SQ SCH ×3 (06:10→21:13)
[2019-02-06] MEDS: PANTOPRAZOLE 40 MG TABLET (FP) PO SCH (06:10)
[2019-02-06 06:59] LABS: HEMATOCRIT 34.9 % (32.4-45.2); HEMOGLOBIN 11.8 GM/dL (10.7-15.3); LYMPH % 10.2 % (8-40); MCH 30.5 pg (25.7-33.7); MCHC 33.8 g/dl (32.0-36.0); MEAN CELL VOLUME 90.3 fl (80-96); MONO % 5.1 % (3.8-10.2); NEUT % 84.7 % (42.8-82.8); PLATELET COUNT 213 K/MM3 (134-434); RBC 3.87 M/mm3 (3.60-5.2); RDW 13.8 % (11.6-15.6); WHITE BLOOD COUNT 6.8 K/mm3 (4.0-10.0)
[2019-02-06 07:16] LABS: ALBUMIN 2.6 g/dl (3.4-5.0); BILIRUBIN,TOTAL 0.3 mg/dL (0.2-1); CALCIUM 9.1 mg/dL (8.5-10.1); CREATININE 1.1 mg/dL (0.55-1.3); POTASSIUM 4.5 mmol/L (3.5-5.1); TOT PROT 6.4 g/dl (6.4-8.2)
[2019-02-06] MEDS: ALBUTEROL SO4 2.5/IPRATROPIUM 0.5 INH SOL 3 ML VIAL.NEB. NEB SCH ×4 (08:03→20:46)
[2019-02-06] MEDS ORDERED: DEXTROSE 5%-WATER - 50 ML IVPB ONE (09:17)
[2019-02-06] MEDS ORDERED: cefTRIAXone SODIUM 1 GM VIAL ONE (09:17)
[2019-02-06] MEDS ORDERED: PT OWN MED DRAWER 7, Y5N ONE ×2 (09:18→09:31)
[2019-02-06] MEDS: NIFEdipine E.R 60 MG TABLET (UD) PO SCH (09:23)
[2019-02-06] MEDS: FENOFIBRIC ACID 135 MG CAP PO SCH (09:23)
[2019-02-06] MEDS: GABAPENTIN 300 MG CAPSULE (FP) PO SCH (09:23)
[2019-02-06] MEDS: LOSARTAN POTASSIUM 50 MG TABLET (FP) PO SCH (09:23)
[2019-02-06] MEDS: OMEGA-3 ACID ETHYL ESTERS (FATTY-ACIDS) 1 GM CAPSULE (FP) PO SCH ×2 (09:23→21:14)
[2019-02-06] MEDS: FUROSEMIDE 40 MG/4 ML INJECTABLE VIAL IVPUSH SCH (09:24)
[2019-02-06] MEDS: CEFTRIAXONE 1 GM in DEXTROSE 5%-WATER - 50 ML IVPB SCH (09:24)
[2019-02-06] MEDS: MOMETASONE FUROATE 110 MCG/IH INHALER IH SCH ×2 (09:25→21:14)
[2019-02-06] MEDS: AZITHROMYCIN IVPB 500 MG in DEXTROSE 5%-WATER - 250 ML IVPB SCH (10:05)
[2019-02-06] MEDS: AZITHROMYCIN IVPB 500 MG/250 ML BAG IVPB SCH (10:35)
--- NOTE | 2019-02-06 11:35 | PN ---
Progress Note (short form) - Note Progress Note: Examined awake and alert coughing+ dry seated upright in chair SOB better Vital Signs - 24 hr 02/05/19 02/05/19 02/05/19 12:52 19:41 22:00 Temperature 97.3 F L Pulse Rate 66 Pulse Rate [ 67 68 Radial] Respiratory 26 H 20 20 Rate Blood Pressure 120/68 Blood Pressure 120/67 145/65 [Left Arm] O2 Sat by Pulse 95 97 93 L Oximetry (%) 02/06/19 02/06/19 02/06/19 02:00 06:49 10:00 Temperature 97.9 F 97.4 F L 97.4 F L Pulse Rate 78 77 83 Pulse Rate [ Radial] Respiratory 18 18 18 Rate Blood Pressure 121/45 L 145/87 126/66 Blood Pressure [Left Arm] O2 Sat by Pulse Oximetry (%) Current Medications Generic Name Dose Route Start Last Admin Trade Name Freq PRN Reason Stop Dose Admin Acetaminophen 650 mg 02/05/19 00:48 02/05/19 02:07 Tylenol - PO 650 mg Q6H PRN Administration PAIN LEVEL 1-5 Albuterol/Ipratropium 1 amp 02/05/19 08:00 02/06/19 08:03 Duoneb - NEB 1 amp RQID ANDRADE Administration Fenofibric Acid 135 mg 02/05/19 10:45 02/06/19 09:23 Trilipix - PO 135 mg DAILY ANDRADE Administration Furosemide 40 mg 02/05/19 10:00 02/06/19 09:24 Lasix Injection - IVPUSH 40 mg DAILY ANDRADE Administration Gabapentin 300 mg 02/05/19 10:00 02/06/19 09:23 Neurontin - PO 300 mg DAILY ANDRADE Administration Heparin Sodium (Porcine) 5,000 unit 02/05/19 06:00 02/06/19 06:10 Heparin - SQ 5,000 unit TID ANDRADE Administration Ceftriaxone Sodium 1 gm/ 50 mls @ 100 mls/hr 02/05/19 10:00 02/06/19 09:24 Dextrose IVPB 02/11/19 23:59 100 mls/hr DAILY ANDRADE Administration Protocol Azithromycin 500 mg in 250 mls @ 250 mls/hr 02/06/19 10:15 02/06/19 10:35 Zithromax 500mg Ivpb (Pre-Docked) IVPB 02/11/19 11:00 250 mls/hr DAILY ANDRADE Administration Insulin Aspart 1 vial 02/05/19 11:00 02/06/19 06:10 Novolog Vial Sliding Scale - SQ 4 unit TIDAC ANDRADE Administration Protocol Losartan Potassium 100 mg 02/05/19 10:45 02/06/19 09:23 Cozaar - PO 100 mg DAILY ANDRADE Administration Methylprednisolone Sodium Succinate 40 mg 02/05/19 02:00 02/06/19 09:24 Solu-Medrol - IVPUSH 40 mg Q8H-IV ANDRADE Administration Mometasone Furoate 1 puff 02/05/19 10:00 02/06/19 09:25 Asmanex 110mcg - IH 1 puff BID ANDRADE Administration Montelukast Sodium 10 mg 02/05/19 22:00 02/05/19 21:32 Singulair - PO 10 mg HS ANDRADE Administration Nifedipine 60 mg 02/05/19 10:00 02/06/19 09:23 Procardia Xl - PO 60 mg DAILY ANDRADE Administration Ifmsb-4-Ctwy Ethyl Esters 2 gm 02/05/19 10:00 02/06/19 09:23 Lovaza - PO 2 gm BID ANDRADE Administration Pantoprazole Sodium 40 mg 02/05/19 07:00 02/06/19 06:10 Protonix - PO 40 mg AM ANDRADE Administration Laboratory Results - last 24 hr 02/05/19 02/05/19 02/05/19 11:20 12:41 17:14 WBC RBC Hgb Hct MCV MCH MCHC RDW Plt Count MPV Absolute Neuts (auto) Neutrophils % Lymphocytes % Monocytes % Eosinophils % Basophils % Nucleated RBC % Sodium Potassium Chloride Carbon Dioxide Anion Gap BUN Creatinine Est GFR (CKD-EPI)AfAm Est GFR (CKD-EPI)NonAf POC Glucometer 356 262 Random Glucose Hemoglobin A1c % Calcium Total Bilirubin AST ALT Alkaline Phosphatase Total Protein Albumin Influenza A (Rapid) Negative Influenza B (Rapid) Negative 02/06/19 02/06/19 02/06/19 05:35 05:35 05:35 WBC 6.8 RBC 3.87 Hgb 11.8 Hct 34.9 MCV 90.3 MCH 30.5 MCHC 33.8 RDW 13.8 Plt Count 213 MPV 9.0 Absolute Neuts (auto) 5.7 Neutrophils % 84.7 H Lymphocytes % 10.2 D Monocytes % 5.1 Eosinophils % 0.0 Basophils % 0.0 Nucleated RBC % 0 Sodium 137 Potassium 4.5 Chloride 102 Carbon Dioxide 27 Anion Gap 8 BUN 40.0 H Creatinine 1.1 Est GFR (CKD-EPI)AfAm 54.53 Est GFR (CKD-EPI)NonAf 47.05 POC Glucometer Random Glucose 227 H Hemoglobin A1c % 6.0 Calcium 9.1 Total Bilirubin 0.3 AST 20 ALT 26 Alkaline Phosphatase 61 Total Protein 6.4 Albumin 2.6 L Influenza A (Rapid) Influenza B (Rapid) 02/06/19 06:08 WBC RBC Hgb Hct MCV MCH MCHC RDW Plt Count MPV Absolute Neuts (auto) Neutrophils % Lymphocytes % Monocytes % Eosinophils % Basophils % Nucleated RBC % Sodium Potassium Chloride Carbon Dioxide Anion Gap BUN Creatinine Est GFR (CKD-EPI)AfAm Est GFR (CKD-EPI)NonAf POC Glucometer 234 Random Glucose Hemoglobin A1c % Calcium Total Bilirubin AST ALT Alkaline Phosphatase Total Protein Albumin Influenza A (Rapid) Influenza B (Rapid) S1 S2 RRR Lungs ronchi B.L crackles+ JVD+ Abd- soft, obese, NT trace edema PLAN IV Lasix monitor renal function , I and O iv solumedrol nebs IV antibiotics urine antigens negative Influenza negative IV antibiotics clinically better Problem List - Problems (1) Acute respiratory failure with hypoxia Code(s): J96.01 - ACUTE RESPIRATORY FAILURE WITH HYPOXIA (2) Asthma exacerbation Code(s): J45.901 - UNSPECIFIED ASTHMA WITH (ACUTE) EXACERBATION Qualifiers: Asthma severity: moderate Asthma persistence: persistent Qualified Code(s ): J45.41 - Moderate persistent asthma with (acute) exacerbation (3) CHF exacerbation Code(s): I50.9 - HEART FAILURE, UNSPECIFIED Qualifiers: Heart failure type: unspecified Qualified Code(s): I50.9 - Heart failure, unspecified (4) COPD with acute exacerbation Code(s): J44.1 - CHRONIC OBSTRUCTIVE PULMONARY DISEASE W (ACUTE) EXACERBATION (5) Community acquired pneumonia Code(s): J18.9 - PNEUMONIA, UNSPECIFIED ORGANISM Qualifiers: Laterality: right Lung location: unspecified part of lung Qualified Code( s): J18.9 - Pneumonia, unspecified organism (6) GERD (gastroesophageal reflux disease) Code(s): K21.9 - GASTRO-ESOPHAGEAL REFLUX DISEASE WITHOUT ESOPHAGITIS (7) HLD (hyperlipidemia) Code(s): E78.5 - HYPERLIPIDEMIA, UNSPECIFIED
--- NOTE | 2019-02-06 11:47 | PN ---
Progress Note (short form) - Note Progress Note: s: sob improving, still has cough. no chest pain, palps, dizziness Current Medications Acetaminophen (Tylenol -) 650 mg PO Q6H PRN PRN Reason: PAIN LEVEL 1-5 Last Admin: 02/05/19 02:07 Dose: 650 mg Albuterol/Ipratropium (Duoneb -) 1 amp NEB RQID [facility] Last Admin: 02/06/19 08:03 Dose: 1 amp Fenofibric Acid (Trilipix -) 135 mg PO DAILY [facility] Last Admin: 02/06/19 09:23 Dose: 135 mg Furosemide (Lasix Injection -) 40 mg IVPUSH DAILY [facility] Last Admin: 02/06/19 09:24 Dose: 40 mg Gabapentin (Neurontin -) 300 mg PO DAILY [facility] Last Admin: 02/06/19 09:23 Dose: 300 mg Heparin Sodium (Porcine) (Heparin -) 5,000 unit SQ TID [facility] Last Admin: 02/06/19 06:10 Dose: 5,000 unit Ceftriaxone Sodium 1 gm/ (Dextrose) 50 mls @ 100 mls/hr IVPB DAILY [facility]; Protocol Stop: 02/11/19 23:59 Last Admin: 02/06/19 09:24 Dose: 100 mls/hr Azithromycin (Zithromax 500mg Ivpb (Pre-Docked)) 500 mg in 250 mls @ 250 mls/ hr IVPB DAILY [facility] Stop: 02/11/19 11:00 Last Admin: 02/06/19 10:35 Dose: 250 mls/hr Insulin Aspart (Novolog Vial Sliding Scale -) 1 vial SQ TIDAC [facility]; Protocol Last Admin: 02/06/19 06:10 Dose: 4 unit Losartan Potassium (Cozaar -) 100 mg PO DAILY [facility] Last Admin: 02/06/19 09:23 Dose: 100 mg Methylprednisolone Sodium Succinate (Solu-Medrol -) 40 mg IVPUSH Q8H-IV [facility] Last Admin: 02/06/19 09:24 Dose: 40 mg Mometasone Furoate (Asmanex 110mcg -) 1 puff IH BID [facility] Last Admin: 02/06/19 09:25 Dose: 1 puff Montelukast Sodium (Singulair -) 10 mg PO HS [facility] Last Admin: 02/05/19 21:32 Dose: 10 mg Nifedipine (Procardia Xl -) 60 mg PO DAILY [facility] Last Admin: 02/06/19 09:23 Dose: 60 mg Bgvhf-4-Rfna Ethyl Esters (Lovaza -) 2 gm PO BID [facility] Last Admin: 02/06/19 09:23 Dose: 2 gm Pantoprazole Sodium (Protonix -) 40 mg PO AM [facility] Last Admin: 02/06/19 06:10 Dose: 40 mg Vital Signs Period Temp Pulse Resp BP Sys/Elaine Pulse Ox Last 24 Hr 97.3 F-97.9 F 66-83 18-26 120-145/45-87 93-97 Constitutional: Yes: No Distress, Calm Eyes: Yes: Conjunctiva Clear, EOM Intact HENT: Yes: Atraumatic, Normocephalic Neck: Yes: Supple, Trachea Midline Respiratory: Yes: Regular, Diminished (bases bilaterally) Gastrointestinal: Yes: Normal Bowel Sounds, Soft Cardiovascular: Yes: Regular Rate and Rhythm JVD: Yes Heart Sounds: Yes: S1, S2 Edema: Yes Edema: LLE: 1+, RLE: 1+ Integumentary: No: Jaundice Neurological: Yes: Alert, Oriented Psychiatric: No: Agitated Assessment/Plan EKG: sinus, nl intervals, no ischemic changes tele: sinus, PVCs, artifact echo 07/2018 nl LV/RV function, grade I diastolic dysfunction CXR: congestive changes, R infiltrate shortness of breath, acute on chronic diastolic HF - nl LV function on echo 07/2018 - continue IV lasix - monitor Cr, lytes, daily weights with diuresis elevated trop - indeterminate range, flat trend, EKG no ischemic changes - likely demand in setting of CHF exac - unlikely ACS COPD, possible PNA - manage per pulm, ID HTN - cont home meds HLD - cont fenofibrate
--- NOTE | 2019-02-06 12:55 | PN ---
Progress Note, Physician History of Present Illness: PULMONARY ALERT,SITTING UP IN BED SOB IMPROVING, +COUGH - Current Medication List Current Medications: Active Medications Acetaminophen (Tylenol -) 650 mg PO Q6H PRN PRN Reason: PAIN LEVEL 1-5 Last Admin: 02/05/19 02:07 Dose: 650 mg Albuterol/Ipratropium (Duoneb -) 1 amp NEB RQID [facility] Last Admin: 02/06/19 08:03 Dose: 1 amp Fenofibric Acid (Trilipix -) 135 mg PO DAILY [facility] Last Admin: 02/06/19 09:23 Dose: 135 mg Furosemide (Lasix Injection -) 40 mg IVPUSH DAILY [facility] Last Admin: 02/06/19 09:24 Dose: 40 mg Gabapentin (Neurontin -) 300 mg PO DAILY [facility] Last Admin: 02/06/19 09:23 Dose: 300 mg Heparin Sodium (Porcine) (Heparin -) 5,000 unit SQ TID [facility] Last Admin: 02/06/19 06:10 Dose: 5,000 unit Ceftriaxone Sodium 1 gm/ (Dextrose) 50 mls @ 100 mls/hr IVPB DAILY [facility]; Protocol Stop: 02/11/19 23:59 Last Admin: 02/06/19 09:24 Dose: 100 mls/hr Azithromycin (Zithromax 500mg Ivpb (Pre-Docked)) 500 mg in 250 mls @ 250 mls/ hr IVPB DAILY [facility] Stop: 02/11/19 11:00 Last Admin: 02/06/19 10:35 Dose: 250 mls/hr Insulin Aspart (Novolog Vial Sliding Scale -) 1 vial SQ TIDAC [facility]; Protocol Last Admin: 02/06/19 12:09 Dose: 12 unit Losartan Potassium (Cozaar -) 100 mg PO DAILY [facility] Last Admin: 02/06/19 09:23 Dose: 100 mg Methylprednisolone Sodium Succinate (Solu-Medrol -) 40 mg IVPUSH Q8H-IV [facility] Last Admin: 02/06/19 09:24 Dose: 40 mg Mometasone Furoate (Asmanex 110mcg -) 1 puff IH BID [facility] Last Admin: 02/06/19 09:25 Dose: 1 puff Montelukast Sodium (Singulair -) 10 mg PO HS [facility] Last Admin: 02/05/19 21:32 Dose: 10 mg Nifedipine (Procardia Xl -) 60 mg PO DAILY [facility] Last Admin: 02/06/19 09:23 Dose: 60 mg Kmzwx-8-Iefv Ethyl Esters (Lovaza -) 2 gm PO BID [facility] Last Admin: 02/06/19 09:23 Dose: 2 gm Pantoprazole Sodium (Protonix -) 40 mg PO AM [facility] Last Admin: 02/06/19 06:10 Dose: 40 mg - Objective Vital Signs: Vital Signs Temperature 97.4 F L 02/06/19 10:00 Pulse Rate 83 02/06/19 10:00 Respiratory Rate 18 02/06/19 10:00 Blood Pressure 126/66 02/06/19 10:00 O2 Sat by Pulse Oximetry (%) 94 L 02/06/19 09:00 Constitutional: Yes: Calm, Obese Eyes: Yes: WNL HENT: Yes: WNL, Tonsillar Exudate Neck: Yes: Tenderness Cardiovascular: Yes: S1, S2 Respiratory: Yes: Rales (BILATERAL WHEEZES) Gastrointestinal: Yes: Normal Bowel Sounds, Soft Extremities: Yes: WNL Edema: Yes Labs: CBC, BMP 02/06/19 05:35 02/06/19 05:35 INR, PTT INR 1.25 (0.83-1.09) H 02/04/19 20:10 Assessment/Plan Problem List - Problems (1) Pneumonia Code(s): J18.9 - PNEUMONIA, UNSPECIFIED ORGANISM (2) COPD with acute exacerbation Code(s): J44.1 - CHRONIC OBSTRUCTIVE PULMONARY DISEASE W (ACUTE) EXACERBATION Assessment/Plan Pneumonia Acute COPD Exacerbation Acute on Chronic Diastolic Heart Failure HTN Hyperlipidemia - IV antibiotics - inhaled bronchodilators - medrol - O2 to keep SpO2 >90% - lasix - monitor urine output, creatinine - DVT prophylaxis DR FRANCO
--- NOTE | 2019-02-06 13:50 | PN ---
Progress Note, Physician History of Present Illness: starting to feel better - Current Medication List Current Medications: Active Medications Acetaminophen (Tylenol -) 650 mg PO Q6H PRN PRN Reason: PAIN LEVEL 1-5 Last Admin: 02/05/19 02:07 Dose: 650 mg Albuterol/Ipratropium (Duoneb -) 1 amp NEB RQID [facility] Last Admin: 02/06/19 12:45 Dose: Not Given Fenofibric Acid (Trilipix -) 135 mg PO DAILY [facility] Last Admin: 02/06/19 09:23 Dose: 135 mg Furosemide (Lasix Injection -) 40 mg IVPUSH DAILY [facility] Last Admin: 02/06/19 09:24 Dose: 40 mg Gabapentin (Neurontin -) 300 mg PO DAILY [facility] Last Admin: 02/06/19 09:23 Dose: 300 mg Heparin Sodium (Porcine) (Heparin -) 5,000 unit SQ TID [facility] Last Admin: 02/06/19 06:10 Dose: 5,000 unit Ceftriaxone Sodium 1 gm/ (Dextrose) 50 mls @ 100 mls/hr IVPB DAILY [facility]; Protocol Stop: 02/11/19 23:59 Last Admin: 02/06/19 09:24 Dose: 100 mls/hr Azithromycin (Zithromax 500mg Ivpb (Pre-Docked)) 500 mg in 250 mls @ 250 mls/ hr IVPB DAILY [facility] Stop: 02/11/19 11:00 Last Admin: 02/06/19 10:35 Dose: 250 mls/hr Insulin Aspart (Novolog Vial Sliding Scale -) 1 vial SQ TIDAC [facility]; Protocol Last Admin: 02/06/19 12:09 Dose: 12 unit Losartan Potassium (Cozaar -) 100 mg PO DAILY [facility] Last Admin: 02/06/19 09:23 Dose: 100 mg Methylprednisolone Sodium Succinate (Solu-Medrol -) 40 mg IVPUSH Q8H-IV [facility] Last Admin: 02/06/19 09:24 Dose: 40 mg Mometasone Furoate (Asmanex 110mcg -) 1 puff IH BID [facility] Last Admin: 02/06/19 09:25 Dose: 1 puff Montelukast Sodium (Singulair -) 10 mg PO HS [facility] Last Admin: 02/05/19 21:32 Dose: 10 mg Nifedipine (Procardia Xl -) 60 mg PO DAILY [facility] Last Admin: 02/06/19 09:23 Dose: 60 mg Shuzx-8-Umho Ethyl Esters (Lovaza -) 2 gm PO BID [facility] Last Admin: 02/06/19 09:23 Dose: 2 gm Pantoprazole Sodium (Protonix -) 40 mg PO AM [facility] Last Admin: 02/06/19 06:10 Dose: 40 mg - Objective Vital Signs: Vital Signs Temperature 97.4 F L 02/06/19 10:00 Pulse Rate 83 02/06/19 10:00 Respiratory Rate 18 02/06/19 10:00 Blood Pressure 126/66 02/06/19 10:00 O2 Sat by Pulse Oximetry (%) 94 L 02/06/19 09:00 Constitutional: Yes: No Distress, Calm Cardiovascular: Yes: S1, S2 Respiratory: Yes: Regular, CTA Bilaterally Gastrointestinal: Yes: Normal Bowel Sounds, Soft Musculoskeletal: Yes: WNL Extremities: Yes: WNL Neurological: Yes: Alert, Oriented Psychiatric: Yes: Alert, Oriented Labs: CBC, BMP 02/06/19 05:35 02/06/19 05:35 INR, PTT INR 1.25 (0.83-1.09) H 02/04/19 20:10 Assessment/Plan Problem List - Problems (1) Acute respiratory failure with hypoxia Code(s): J96.01 - ACUTE RESPIRATORY FAILURE WITH HYPOXIA (2) Asthma exacerbation Code(s): J45.901 - UNSPECIFIED ASTHMA WITH (ACUTE) EXACERBATION Qualifiers: Asthma severity: moderate Asthma persistence: persistent Qualified Code(s ): J45.41 - Moderate persistent asthma with (acute) exacerbation (3) CHF exacerbation Code(s): I50.9 - HEART FAILURE, UNSPECIFIED Qualifiers: Heart failure type: unspecified Qualified Code(s): I50.9 - Heart failure, unspecified (4) Community acquired pneumonia Code(s): J18.9 - PNEUMONIA, UNSPECIFIED ORGANISM Qualifiers: Laterality: right Lung location: unspecified part of lung Qualified Code( s): J18.9 - Pneumonia, unspecified organism (5) GERD (gastroesophageal reflux disease) Code(s): K21.9 - GASTRO-ESOPHAGEAL REFLUX DISEASE WITHOUT ESOPHAGITIS (6) HLD (hyperlipidemia) Code(s): E78.5 - HYPERLIPIDEMIA, UNSPECIFIED (7) Hypertension Code(s): I10 - ESSENTIAL (PRIMARY) HYPERTENSION (8) Venous insufficiency Code(s): I87.2 - VENOUS INSUFFICIENCY (CHRONIC) (PERIPHERAL) Assessment/Plan 83 y.o. female with PMH of asthma/COPD, diastolic HF, HTN, HLD, and cellulitis presents with c/o SOB, cough and weakness that started one week ago PNA Asthma/COPD exacerbation CHF Fever Hyperglycemia HTN HLD Obesity -- continue Ceftriaxone/Azithromycin resp support incentive lisa rest as per the team
[2019-02-06] MEDS: MONTELUKAST NA 10 MG TABLET PO SCH (21:13)
[2019-02-07] MEDS: methylPREDNISolone NA SUCC 40 MG/1 ML VIAL IVPUSH SCH ×3 (01:17→18:10)
[2019-02-07] MEDS: PANTOPRAZOLE 40 MG TABLET (FP) PO SCH (06:16)
[2019-02-07] MEDS: INSULIN SLIDING SCALE (NOVOLOG) 1 VIAL SQ SCH ×3 (06:17→15:53)
[2019-02-07] MEDS: HEPARIN NA (PORCINE) 5,000 UNITS/ML 1ML VIAL SQ SCH ×3 (06:17→21:11)
[2019-02-07] MEDS: ALBUTEROL SO4 2.5/IPRATROPIUM 0.5 INH SOL 3 ML VIAL.NEB. NEB SCH ×4 (08:24→21:29)
[2019-02-07] MEDS ORDERED: PT OWN MED DRAWER 7, Y5N ONE ×3 (09:20→20:57)
[2019-02-07] MEDS ORDERED: DEXTROSE 5%-WATER - 50 ML IVPB ONE (09:20)
[2019-02-07] MEDS ORDERED: cefTRIAXone SODIUM 1 GM VIAL ONE (09:20)
[2019-02-07] MEDS: GABAPENTIN 300 MG CAPSULE (FP) PO SCH (10:04)
[2019-02-07] MEDS: CEFTRIAXONE 1 GM in DEXTROSE 5%-WATER - 50 ML IVPB SCH (10:04)
[2019-02-07] MEDS: AZITHROMYCIN IVPB 500 MG/250 ML BAG IVPB SCH (10:04)
[2019-02-07] MEDS: NIFEdipine E.R 60 MG TABLET (UD) PO SCH (10:04)
[2019-02-07] MEDS: LOSARTAN POTASSIUM 50 MG TABLET (FP) PO SCH (10:04)
[2019-02-07] MEDS: FUROSEMIDE 40 MG/4 ML INJECTABLE VIAL IVPUSH SCH (10:05)
[2019-02-07] MEDS: MOMETASONE FUROATE 110 MCG/IH INHALER IH SCH ×2 (10:05→21:11)
--- NOTE | 2019-02-07 11:03 | PN ---
Progress Note (short form) - Note Progress Note: s: sob improving, still has cough. no chest pain, palps, dizziness Current Medications Generic Name Dose Route Start Last Admin Trade Name Freq PRN Reason Stop Dose Admin Acetaminophen 650 mg 02/05/19 00:48 02/05/19 02:07 Tylenol - PO 650 mg Q6H PRN Administration PAIN LEVEL 1-5 Albuterol/Ipratropium 1 amp 02/05/19 08:00 02/07/19 08:24 Duoneb - NEB 1 amp RQID [facility] Administration Fenofibric Acid 135 mg 02/05/19 10:45 02/06/19 09:23 Trilipix - PO 135 mg DAILY [facility] Administration Furosemide 40 mg 02/05/19 10:00 02/07/19 10:05 Lasix Injection - IVPUSH 40 mg DAILY [facility] Administration Gabapentin 300 mg 02/05/19 10:00 02/07/19 10:04 Neurontin - PO 300 mg DAILY [facility] Administration Heparin Sodium (Porcine) 5,000 unit 02/05/19 06:00 02/07/19 06:17 Heparin - SQ 5,000 unit TID [facility] Administration Ceftriaxone Sodium 1 gm/ 50 mls @ 100 mls/hr 02/05/19 10:00 02/07/19 10:04 Dextrose IVPB 02/11/19 23:59 100 mls/hr DAILY [facility] Administration Protocol Azithromycin 500 mg in 250 mls @ 250 mls/hr 02/06/19 10:15 02/07/19 10:04 Zithromax 500mg Ivpb (Pre-Docked) IVPB 02/11/19 11:00 250 mls/hr DAILY [facility] Administration Insulin Aspart 1 vial 02/05/19 11:00 02/07/19 06:17 Novolog Vial Sliding Scale - SQ 4 unit TIDAC [facility] Administration Protocol Losartan Potassium 100 mg 02/05/19 10:45 02/07/19 10:04 Cozaar - PO 100 mg DAILY [facility] Administration Methylprednisolone Sodium Succinate 40 mg 02/05/19 02:00 02/07/19 10:04 Solu-Medrol - IVPUSH 40 mg Q8H-IV [facility] Administration Mometasone Furoate 1 puff 02/05/19 10:00 02/07/19 10:05 Asmanex 110mcg - IH 1 puff BID [facility] Administration Montelukast Sodium 10 mg 02/05/19 22:00 02/06/19 21:13 Singulair - PO 10 mg HS [facility] Administration Nifedipine 60 mg 02/05/19 10:00 02/07/19 10:04 Procardia Xl - PO 60 mg DAILY [facility] Administration Pqrqn-8-Qzco Ethyl Esters 2 gm 02/05/19 10:00 02/06/19 21:14 Lovaza - PO 2 gm BID [facility] Administration Pantoprazole Sodium 40 mg 02/05/19 07:00 02/07/19 06:16 Protonix - PO 40 mg AM [facility] Administration Vital Signs Period Temp Pulse Resp BP Sys/Elaine Pulse Ox Last 24 Hr 97.3 F-98.1 F 73-132 18-20 103-152/53-77 95 Constitutional: Yes: No Distress, Calm Eyes: Yes: Conjunctiva Clear, EOM Intact HENT: Yes: Atraumatic, Normocephalic Neck: Yes: Supple, Trachea Midline Respiratory: Yes: Regular, Diminished (bases bilaterally) Gastrointestinal: Yes: Normal Bowel Sounds, Soft Cardiovascular: Yes: Regular Rate and Rhythm JVD: Yes Heart Sounds: Yes: S1, S2 Edema: Yes Edema: LLE: 1+, RLE: 1+ Integumentary: No: Jaundice Neurological: Yes: Alert, Oriented Psychiatric: No: Agitated CBC, BMP 02/06/19 05:35 02/06/19 05:35 Assessment/Plan EKG: sinus, nl intervals, no ischemic changes tele: sinus, PVCs, artifact echo 07/2018 nl LV/RV function, grade I diastolic dysfunction CXR: congestive changes, R infiltrate shortness of breath, acute on chronic diastolic HF - nl LV function on echo 07/2018 - continue IV lasix - monitor Cr, lytes, daily weights with diuresis elevated trop - indeterminate range, flat trend, EKG no ischemic changes - likely demand in setting of CHF exac - unlikely ACS COPD, possible PNA - manage per pulm, ID HTN - cont home meds HLD - cont fenofibrate
--- NOTE | 2019-02-07 11:36 | PN ---
Progress Note (short form) - Note Progress Note: Examined awake and alert coughing+ dry SOB better Vital Signs - 24 hr 02/06/19 02/06/19 02/06/19 15:00 17:32 21:00 Temperature 98.1 F 97.3 F L Pulse Rate 132 H 76 Respiratory 18 20 Rate Blood Pressure 103/53 L 127/59 L O2 Sat by Pulse 95 Oximetry (%) 02/06/19 02/07/19 02/07/19 22:00 01:54 05:00 Temperature 97.6 F 97.7 F 97.7 F Pulse Rate 75 73 77 Respiratory 20 20 20 Rate Blood Pressure 136/70 137/63 152/77 O2 Sat by Pulse Oximetry (%) 02/07/19 02/07/19 09:00 10:00 Temperature 97.5 F L Pulse Rate 85 Respiratory 20 Rate Blood Pressure 156/70 O2 Sat by Pulse 95 Oximetry (%) Current Medications Generic Name Dose Route Start Last Admin Trade Name Freq PRN Reason Stop Dose Admin Acetaminophen 650 mg 02/05/19 00:48 02/05/19 02:07 Tylenol - PO 650 mg Q6H PRN Administration PAIN LEVEL 1-5 Albuterol/Ipratropium 1 amp 02/05/19 08:00 02/07/19 08:24 Duoneb - NEB 1 amp RQID [facility] Administration Fenofibric Acid 135 mg 02/05/19 10:45 02/06/19 09:23 Trilipix - PO 135 mg DAILY [facility] Administration Furosemide 40 mg 02/05/19 10:00 02/07/19 10:05 Lasix Injection - IVPUSH 40 mg DAILY [facility] Administration Gabapentin 300 mg 02/05/19 10:00 02/07/19 10:04 Neurontin - PO 300 mg DAILY [facility] Administration Heparin Sodium (Porcine) 5,000 unit 02/05/19 06:00 02/07/19 06:17 Heparin - SQ 5,000 unit TID [facility] Administration Ceftriaxone Sodium 1 gm/ 50 mls @ 100 mls/hr 02/05/19 10:00 02/07/19 10:04 Dextrose IVPB 02/11/19 23:59 100 mls/hr DAILY [facility] Administration Protocol Azithromycin 500 mg in 250 mls @ 250 mls/hr 02/06/19 10:15 02/07/19 10:04 Zithromax 500mg Ivpb (Pre-Docked) IVPB 02/11/19 11:00 250 mls/hr DAILY [facility] Administration Insulin Aspart 1 vial 02/05/19 11:00 02/07/19 06:17 Novolog Vial Sliding Scale - SQ 4 unit TIDAC [facility] Administration Protocol Losartan Potassium 100 mg 02/05/19 10:45 02/07/19 10:04 Cozaar - PO 100 mg DAILY [facility] Administration Methylprednisolone Sodium Succinate 40 mg 02/05/19 02:00 02/07/19 10:04 Solu-Medrol - IVPUSH 40 mg Q8H-IV [facility] Administration Mometasone Furoate 1 puff 02/05/19 10:00 02/07/19 10:05 Asmanex 110mcg - IH 1 puff BID [facility] Administration Montelukast Sodium 10 mg 02/05/19 22:00 02/06/19 21:13 Singulair - PO 10 mg HS [facility] Administration Nifedipine 60 mg 02/05/19 10:00 02/07/19 10:04 Procardia Xl - PO 60 mg DAILY [facility] Administration Ppgjn-4-Nprl Ethyl Esters 2 gm 02/05/19 10:00 02/06/19 21:14 Lovaza - PO 2 gm BID [facility] Administration Pantoprazole Sodium 40 mg 02/05/19 07:00 02/07/19 06:16 Protonix - PO 40 mg AM [facility] Administration Laboratory Results - last 24 hr 02/06/19 02/06/19 02/07/19 12:04 17:25 06:15 POC Glucometer 412 244 231 S1 S2 RRR Lungs ronchi B.L decreased crackles+ decreased Abd- soft, obese, NT trace edema PLAN IV Lasix monitor renal function , I and O iv solumedrol- taper per Pulmonary nebs IV antibiotics urine antigens negative Influenza negative check respiratory -- pre and post O 2 add levemir for better BGM control Problem List - Problems (1) Acute respiratory failure with hypoxia Code(s): J96.01 - ACUTE RESPIRATORY FAILURE WITH HYPOXIA (2) Asthma exacerbation Code(s): J45.901 - UNSPECIFIED ASTHMA WITH (ACUTE) EXACERBATION Qualifiers: Asthma severity: moderate Asthma persistence: persistent Qualified Code(s ): J45.41 - Moderate persistent asthma with (acute) exacerbation (3) CHF exacerbation Code(s): I50.9 - HEART FAILURE, UNSPECIFIED Qualifiers: Heart failure type: unspecified Qualified Code(s): I50.9 - Heart failure, unspecified (4) COPD with acute exacerbation Code(s): J44.1 - CHRONIC OBSTRUCTIVE PULMONARY DISEASE W (ACUTE) EXACERBATION (5) Community acquired pneumonia Code(s): J18.9 - PNEUMONIA, UNSPECIFIED ORGANISM Qualifiers: Laterality: right Lung location: unspecified part of lung Qualified Code( s): J18.9 - Pneumonia, unspecified organism (6) GERD (gastroesophageal reflux disease) Code(s): K21.9 - GASTRO-ESOPHAGEAL REFLUX DISEASE WITHOUT ESOPHAGITIS (7) HLD (hyperlipidemia) Code(s): E78.5 - HYPERLIPIDEMIA, UNSPECIFIED
[2019-02-07] MEDS: OMEGA-3 ACID ETHYL ESTERS (FATTY-ACIDS) 1 GM CAPSULE (FP) PO SCH ×2 (12:16→21:11)
[2019-02-07] MEDS: FENOFIBRIC ACID 135 MG CAP PO SCH (12:16)
--- NOTE | 2019-02-07 13:35 | PN ---
Progress Note (short form) - Note Progress Note: PULMONARY States breathing is improving. Less cough and wheezing. Hypoxic on room air to 78%. Vital Signs Period Temp Pulse Resp BP Sys/Elaine Pulse Ox Last 24 Hr 97.3 F-98.1 F 73-132 18-20 103-156/53-77 95-95 Gen: NAD at rest Heart: RRR Lung: decreased breath sounds at the bases Abd: soft, nontender Ext: no edema CBC, BMP 02/06/19 05:35 02/06/19 05:35 Active Medications Acetaminophen (Tylenol -) 650 mg PO Q6H PRN PRN Reason: PAIN LEVEL 1-5 Last Admin: 02/05/19 02:07 Dose: 650 mg Albuterol/Ipratropium (Duoneb -) 1 amp NEB RQID [facility] Last Admin: 02/07/19 12:33 Dose: 1 amp Fenofibric Acid (Trilipix -) 135 mg PO DAILY [facility] Last Admin: 02/07/19 12:16 Dose: 135 mg Furosemide (Lasix Injection -) 40 mg IVPUSH DAILY [facility] Last Admin: 02/07/19 10:05 Dose: 40 mg Gabapentin (Neurontin -) 300 mg PO DAILY [facility] Last Admin: 02/07/19 10:04 Dose: 300 mg Heparin Sodium (Porcine) (Heparin -) 5,000 unit SQ TID [facility] Last Admin: 02/07/19 06:17 Dose: 5,000 unit Ceftriaxone Sodium 1 gm/ (Dextrose) 50 mls @ 100 mls/hr IVPB DAILY [facility]; Protocol Stop: 02/11/19 23:59 Last Admin: 02/07/19 10:04 Dose: 100 mls/hr Azithromycin (Zithromax 500mg Ivpb (Pre-Docked)) 500 mg in 250 mls @ 250 mls/ hr IVPB DAILY [facility] Stop: 02/11/19 11:00 Last Admin: 02/07/19 10:04 Dose: 250 mls/hr Insulin Aspart (Novolog Vial Sliding Scale -) 1 vial SQ TIDAC [facility]; Protocol Last Admin: 02/07/19 12:17 Dose: 6 unit Insulin Detemir (Levemir Vial) 10 units SQ HS [facility] Losartan Potassium (Cozaar -) 100 mg PO DAILY [facility] Last Admin: 02/07/19 10:04 Dose: 100 mg Methylprednisolone Sodium Succinate (Solu-Medrol -) 40 mg IVPUSH Q8H-IV [facility] Last Admin: 02/07/19 10:04 Dose: 40 mg Mometasone Furoate (Asmanex 110mcg -) 1 puff IH BID [facility] Last Admin: 02/07/19 10:05 Dose: 1 puff Montelukast Sodium (Singulair -) 10 mg PO HS [facility] Last Admin: 02/06/19 21:13 Dose: 10 mg Nifedipine (Procardia Xl -) 60 mg PO DAILY [facility] Last Admin: 02/07/19 10:04 Dose: 60 mg Shouu-6-Ydoe Ethyl Esters (Lovaza -) 2 gm PO BID [facility] Last Admin: 02/07/19 12:16 Dose: 2 gm Pantoprazole Sodium (Protonix -) 40 mg PO AM [facility] Last Admin: 02/07/19 06:16 Dose: 40 mg A/P Pneumonia Acute COPD Exacerbation Acute on Chronic Diastolic Heart Failure HTN Hyperlipidemia - continue antibiotics - inhaled bronchodilators - short course of medrol - can likely change steroids to prednisone in AM - O2 to keep SpO2 >90% - lasix - monitor urine output, creatinine - DVT prophylaxis - will need home O2 Problem List - Problems (1) Pneumonia Code(s): J18.9 - PNEUMONIA, UNSPECIFIED ORGANISM (2) COPD with acute exacerbation Code(s): J44.1 - CHRONIC OBSTRUCTIVE PULMONARY DISEASE W (ACUTE) EXACERBATION
--- NOTE | 2019-02-07 16:25 | PN ---
Progress Note, Physician History of Present Illness: stable doing well - Current Medication List Current Medications: Active Medications Acetaminophen (Tylenol -) 650 mg PO Q6H PRN PRN Reason: PAIN LEVEL 1-5 Last Admin: 02/05/19 02:07 Dose: 650 mg Albuterol/Ipratropium (Duoneb -) 1 amp NEB RQID [facility] Last Admin: 02/07/19 15:40 Dose: 1 amp Fenofibric Acid (Trilipix -) 135 mg PO DAILY [facility] Last Admin: 02/07/19 12:16 Dose: 135 mg Furosemide (Lasix Injection -) 40 mg IVPUSH DAILY [facility] Last Admin: 02/07/19 10:05 Dose: 40 mg Gabapentin (Neurontin -) 300 mg PO DAILY [facility] Last Admin: 02/07/19 10:04 Dose: 300 mg Heparin Sodium (Porcine) (Heparin -) 5,000 unit SQ TID [facility] Last Admin: 02/07/19 15:55 Dose: 5,000 unit Ceftriaxone Sodium 1 gm/ (Dextrose) 50 mls @ 100 mls/hr IVPB DAILY [facility]; Protocol Stop: 02/11/19 23:59 Last Admin: 02/07/19 10:04 Dose: 100 mls/hr Azithromycin (Zithromax 500mg Ivpb (Pre-Docked)) 500 mg in 250 mls @ 250 mls/ hr IVPB DAILY [facility] Stop: 02/11/19 11:00 Last Admin: 02/07/19 10:04 Dose: 250 mls/hr Insulin Aspart (Novolog Vial Sliding Scale -) 1 vial SQ TIDAC [facility]; Protocol Last Admin: 02/07/19 15:53 Dose: 8 unit Insulin Detemir (Levemir Vial) 10 units SQ [facility] Losartan Potassium (Cozaar -) 100 mg PO DAILY [facility] Last Admin: 02/07/19 10:04 Dose: 100 mg Methylprednisolone Sodium Succinate (Solu-Medrol -) 40 mg IVPUSH Q8H-IV [facility] Last Admin: 02/07/19 10:04 Dose: 40 mg Mometasone Furoate (Asmanex 110mcg -) 1 puff IH BID [facility] Last Admin: 02/07/19 10:05 Dose: 1 puff Montelukast Sodium (Singulair -) 10 mg PO HS [facility] Last Admin: 02/06/19 21:13 Dose: 10 mg Nifedipine (Procardia Xl -) 60 mg PO DAILY [facility] Last Admin: 02/07/19 10:04 Dose: 60 mg Cufdy-9-Euax Ethyl Esters (Lovaza -) 2 gm PO BID [facility] Last Admin: 02/07/19 12:16 Dose: 2 gm Pantoprazole Sodium (Protonix -) 40 mg PO AM [facility] Last Admin: 02/07/19 06:16 Dose: 40 mg - Objective Vital Signs: Vital Signs Temperature 98.3 F 02/07/19 14:00 Pulse Rate 85 02/07/19 14:00 Respiratory Rate 20 02/07/19 14:00 Blood Pressure 152/66 02/07/19 14:00 O2 Sat by Pulse Oximetry (%) 90 L 02/07/19 13:52 Constitutional: Yes: No Distress, Calm Cardiovascular: Yes: S1, S2 Respiratory: Yes: Regular, On Nasal O2, Poor Air Entry Gastrointestinal: Yes: Normal Bowel Sounds, Soft Musculoskeletal: Yes: WNL Extremities: Yes: WNL Neurological: Yes: Alert, Oriented Psychiatric: Yes: Alert, Oriented Labs: CBC, BMP 02/06/19 05:35 02/06/19 05:35 INR, PTT INR 1.25 (0.83-1.09) H 02/04/19 20:10 Assessment/Plan Problem List - Problems (1) Acute respiratory failure with hypoxia Code(s): J96.01 - ACUTE RESPIRATORY FAILURE WITH HYPOXIA (2) Asthma exacerbation Code(s): J45.901 - UNSPECIFIED ASTHMA WITH (ACUTE) EXACERBATION Qualifiers: Asthma severity: moderate Asthma persistence: persistent Qualified Code(s ): J45.41 - Moderate persistent asthma with (acute) exacerbation (3) CHF exacerbation Code(s): I50.9 - HEART FAILURE, UNSPECIFIED Qualifiers: Heart failure type: unspecified Qualified Code(s): I50.9 - Heart failure, unspecified (4) Community acquired pneumonia Code(s): J18.9 - PNEUMONIA, UNSPECIFIED ORGANISM Qualifiers: Laterality: right Lung location: unspecified part of lung Qualified Code( s): J18.9 - Pneumonia, unspecified organism (5) GERD (gastroesophageal reflux disease) Code(s): K21.9 - GASTRO-ESOPHAGEAL REFLUX DISEASE WITHOUT ESOPHAGITIS (6) HLD (hyperlipidemia) Code(s): E78.5 - HYPERLIPIDEMIA, UNSPECIFIED (7) Hypertension Code(s): I10 - ESSENTIAL (PRIMARY) HYPERTENSION (8) Venous insufficiency Code(s): I87.2 - VENOUS INSUFFICIENCY (CHRONIC) (PERIPHERAL) Assessment/Plan 83 y.o. female with PMH of asthma/COPD, diastolic HF, HTN, HLD, and cellulitis presents with c/o SOB, cough and weakness that started one week ago PNA Asthma/COPD exacerbation CHF Fever Hyperglycemia HTN HLD Obesity continue Ceftriaxone/Azithromycin resp support incentive lisa rest as per the team
[2019-02-07] MEDS: MONTELUKAST NA 10 MG TABLET PO SCH (21:10)
[2019-02-07] MEDS ORDERED: INSULIN (LEVEMIR) 100 UNITS/ML UNITS SQ SCH (22:00)
[2019-02-08] MEDS: methylPREDNISolone NA SUCC 40 MG/1 ML VIAL IVPUSH SCH ×2 (01:16→09:29)
[2019-02-08] MEDS: PANTOPRAZOLE 40 MG TABLET (FP) PO SCH (05:59)
[2019-02-08] MEDS: HEPARIN NA (PORCINE) 5,000 UNITS/ML 1ML VIAL SQ SCH ×3 (05:59→21:12)
[2019-02-08] MEDS: INSULIN SLIDING SCALE (NOVOLOG) 1 VIAL SQ SCH ×3 (06:28→16:36)
[2019-02-08] MEDS: ALBUTEROL SO4 2.5/IPRATROPIUM 0.5 INH SOL 3 ML VIAL.NEB. NEB SCH ×4 (08:32→21:10)
[2019-02-08] MEDS ORDERED: cefTRIAXone SODIUM 1 GM VIAL ONE (08:57)
[2019-02-08] MEDS ORDERED: DEXTROSE 5%-WATER - 50 ML IVPB ONE (08:57)
[2019-02-08] MEDS: CEFTRIAXONE 1 GM in DEXTROSE 5%-WATER - 50 ML IVPB SCH (09:03)
--- NOTE | 2019-02-08 09:14 | PN ---
Progress Note (short form) - Note Progress Note: pt seen/ examined chart reviewed awake/ comfortable feels better. Dysnea improved. denies pain BGM noted --elevated Vital Signs Temp 98.2 F 02/08/19 06:00 Pulse 70 02/08/19 06:00 Resp 18 02/08/19 06:00 BP 154/78 02/08/19 06:00 Pulse Ox 94 L 02/07/19 21:00 Intake & Output 02/07/19 02/07/19 02/08/19 11:59 23:59 11:59 Intake Total 50 600 Balance 50 600 Weight 181 lb 182 lb 9.6 oz Intake: IVPB 300 Oral 50 300 Other: Voiding Method Toilet Toilet # Unmeasured Voids Void 1 1 3 Bowel Movement No No Weight Measurement Method Standing Scale Standing Scale Active Medications Acetaminophen (Tylenol -) 650 mg PO Q6H PRN PRN Reason: PAIN LEVEL 1-5 Last Admin: 02/05/19 02:07 Dose: 650 mg Albuterol/Ipratropium (Duoneb -) 1 amp NEB RQID [facility] Last Admin: 02/08/19 08:32 Dose: 1 amp Fenofibric Acid (Trilipix -) 135 mg PO DAILY [facility] Last Admin: 02/07/19 12:16 Dose: 135 mg Furosemide (Lasix Injection -) 40 mg IVPUSH DAILY [facility] Last Admin: 02/07/19 10:05 Dose: 40 mg Gabapentin (Neurontin -) 300 mg PO DAILY [facility] Last Admin: 02/07/19 10:04 Dose: 300 mg Heparin Sodium (Porcine) (Heparin -) 5,000 unit SQ TID [facility] Last Admin: 02/08/19 05:59 Dose: 5,000 unit Ceftriaxone Sodium 1 gm/ (Dextrose) 50 mls @ 100 mls/hr IVPB DAILY [facility]; Protocol Stop: 02/11/19 23:59 Last Admin: 02/08/19 09:03 Dose: 100 mls/hr Azithromycin (Zithromax 500mg Ivpb (Pre-Docked)) 500 mg in 250 mls @ 250 mls/ hr IVPB DAILY [facility] Stop: 02/11/19 11:00 Last Admin: 02/07/19 10:04 Dose: 250 mls/hr Insulin Aspart (Novolog Vial Sliding Scale -) 1 vial SQ TIDAC [facility]; Protocol Last Admin: 02/08/19 06:28 Dose: 4 unit Insulin Detemir (Levemir Vial) 10 units SQ HS [facility] Last Admin: 02/07/19 21:12 Dose: 10 units Losartan Potassium (Cozaar -) 100 mg PO DAILY [facility] Last Admin: 02/07/19 10:04 Dose: 100 mg Methylprednisolone Sodium Succinate (Solu-Medrol -) 40 mg IVPUSH Q8H-IV [facility] Last Admin: 02/08/19 01:16 Dose: 40 mg Mometasone Furoate (Asmanex 110mcg -) 1 puff IH BID [facility] Last Admin: 02/07/19 21:11 Dose: 1 puff Montelukast Sodium (Singulair -) 10 mg PO HS [facility] Last Admin: 02/07/19 21:10 Dose: 10 mg Nifedipine (Procardia Xl -) 60 mg PO DAILY [facility] Last Admin: 02/07/19 10:04 Dose: 60 mg Euoyt-0-Xftd Ethyl Esters (Lovaza -) 2 gm PO BID [facility] Last Admin: 02/07/19 21:11 Dose: 2 gm Pantoprazole Sodium (Protonix -) 40 mg PO AM [facility] Last Admin: 02/08/19 05:59 Dose: 40 mg CBC, BMP 02/06/19 05:35 02/06/19 05:35 Increase LEVEMIR Physical Exam. Awake/ comfortable. S1 S2 RRR Lungs ronchi Abd- soft, obese, trace edema PLAN IV Lasix monitor renal function , I and O iv solumedrol- taper per Pulmonary nebs IV antibiotics urine antigens negative Influenza negative check respiratory -- pre and post O 2 Increase levemir for better BGM control Problem List - Problems (1) Acute respiratory failure with hypoxia Code(s): J96.01 - ACUTE RESPIRATORY FAILURE WITH HYPOXIA (2) Asthma exacerbation Code(s): J45.901 - UNSPECIFIED ASTHMA WITH (ACUTE) EXACERBATION Qualifiers: Asthma severity: moderate Asthma persistence: persistent Qualified Code(s ): J45.41 - Moderate persistent asthma with (acute) exacerbation (3) CHF exacerbation Code(s): I50.9 - HEART FAILURE, UNSPECIFIED Qualifiers: Heart failure type: unspecified Qualified Code(s): I50.9 - Heart failure, unspecified (4) COPD with acute exacerbation Code(s): J44.1 - CHRONIC OBSTRUCTIVE PULMONARY DISEASE W (ACUTE) EXACERBATION (5) Community acquired pneumonia Code(s): J18.9 - PNEUMONIA, UNSPECIFIED ORGANISM Qualifiers: Laterality: right Lung location: unspecified part of lung Qualified Code( s): J18.9 - Pneumonia, unspecified organism (6) GERD (gastroesophageal reflux disease) Code(s): K21.9 - GASTRO-ESOPHAGEAL REFLUX DISEASE WITHOUT ESOPHAGITIS (7) HLD (hyperlipidemia) Code(s): E78.5 - HYPERLIPIDEMIA, UNSPECIFIED
[2019-02-08] MEDS ORDERED: PT OWN MED DRAWER 7, Y5N ONE ×3 (09:28→21:08)
[2019-02-08] MEDS: FUROSEMIDE 40 MG/4 ML INJECTABLE VIAL IVPUSH SCH (09:30)
[2019-02-08] MEDS: NIFEdipine E.R 60 MG TABLET (UD) PO SCH (09:35)
[2019-02-08] MEDS: LOSARTAN POTASSIUM 50 MG TABLET (FP) PO SCH (09:36)
[2019-02-08] MEDS: GABAPENTIN 300 MG CAPSULE (FP) PO SCH (09:37)
[2019-02-08] MEDS: MOMETASONE FUROATE 110 MCG/IH INHALER IH SCH ×2 (09:37→21:12)
--- NOTE | 2019-02-08 09:56 | PN ---
Progress Note, Physician Chief Complaint: walking around the room Feeling better Denies CP, SOB, palps Tele: NSR, periods mild ST Weight is down History of Present Illness: Acute on chronic diastolic CHF COPD w/ possible PNA - Current Medication List Current Medications: Active Medications Acetaminophen (Tylenol -) 650 mg PO Q6H PRN PRN Reason: PAIN LEVEL 1-5 Last Admin: 02/05/19 02:07 Dose: 650 mg Albuterol/Ipratropium (Duoneb -) 1 amp NEB RQID [facility] Last Admin: 02/08/19 08:32 Dose: 1 amp Fenofibric Acid (Trilipix -) 135 mg PO DAILY [facility] Last Admin: 02/07/19 12:16 Dose: 135 mg Furosemide (Lasix Injection -) 40 mg IVPUSH DAILY [facility] Last Admin: 02/08/19 09:30 Dose: 40 mg Gabapentin (Neurontin -) 300 mg PO DAILY [facility] Last Admin: 02/08/19 09:37 Dose: 300 mg Heparin Sodium (Porcine) (Heparin -) 5,000 unit SQ TID [facility] Last Admin: 02/08/19 05:59 Dose: 5,000 unit Ceftriaxone Sodium 1 gm/ (Dextrose) 50 mls @ 100 mls/hr IVPB DAILY [facility]; Protocol Stop: 02/11/19 23:59 Last Admin: 02/08/19 09:03 Dose: 100 mls/hr Azithromycin (Zithromax 500mg Ivpb (Pre-Docked)) 500 mg in 250 mls @ 250 mls/ hr IVPB DAILY [facility] Stop: 02/11/19 11:00 Last Admin: 02/07/19 10:04 Dose: 250 mls/hr Insulin Aspart (Novolog Vial Sliding Scale -) 1 vial SQ TIDAC [facility]; Protocol Last Admin: 02/08/19 06:28 Dose: 4 unit Insulin Detemir (Levemir Vial) 15 units SQ HS [facility] Losartan Potassium (Cozaar -) 100 mg PO DAILY [facility] Last Admin: 02/08/19 09:36 Dose: 100 mg Methylprednisolone Sodium Succinate (Solu-Medrol -) 40 mg IVPUSH Q8H-IV [facility] Last Admin: 02/08/19 09:29 Dose: 40 mg Mometasone Furoate (Asmanex 110mcg -) 1 puff IH BID [facility] Last Admin: 02/08/19 09:37 Dose: 1 puff Montelukast Sodium (Singulair -) 10 mg PO HS [facility] Last Admin: 02/07/19 21:10 Dose: 10 mg Nifedipine (Procardia Xl -) 60 mg PO DAILY [facility] Last Admin: 02/08/19 09:35 Dose: 60 mg Kwsks-7-Rpkw Ethyl Esters (Lovaza -) 2 gm PO BID [facility] Last Admin: 02/07/19 21:11 Dose: 2 gm Pantoprazole Sodium (Protonix -) 40 mg PO AM [facility] Last Admin: 02/08/19 05:59 Dose: 40 mg - Objective Vital Signs: Vital Signs Temperature 98.2 F 02/08/19 06:00 Pulse Rate 70 02/08/19 06:00 Respiratory Rate 18 02/08/19 06:00 Blood Pressure 154/78 02/08/19 06:00 O2 Sat by Pulse Oximetry (%) 94 L 02/07/19 21:00 Constitutional: Yes: No Distress, Calm Eyes: Yes: Conjunctiva Clear Cardiovascular: Yes: Regular Rate and Rhythm Respiratory: Yes: Rhonchi Gastrointestinal: Yes: Soft Edema: No Neurological: Yes: Alert, Oriented ...Motor Strength: WNL Labs: CBC, BMP 02/06/19 05:35 02/06/19 05:35 INR, PTT INR 1.25 (0.83-1.09) H 02/04/19 20:10 Assessment/Plan Assessment/Plan EKG: sinus, nl intervals, no ischemic changes echo 07/2018 nl LV/RV function, grade I diastolic dysfunction CXR: congestive changes, R infiltrate shortness of breath, acute on chronic diastolic HF: - nl LV function on echo 07/2018 - continue IV lasix - monitor Cr, lytes, daily weights with diuresis. Weight down since admission. elevated trop: - indeterminate range, flat trend, EKG no ischemic changes - likely demand in setting of CHF exac - unlikely ACS COPD, possible PNA: - manage per pulm, ID HTN: - cont home meds HLD: - cont fenofibrate
[2019-02-08] MEDS: OMEGA-3 ACID ETHYL ESTERS (FATTY-ACIDS) 1 GM CAPSULE (FP) PO SCH ×2 (10:18→21:12)
[2019-02-08] MEDS: FENOFIBRIC ACID 135 MG CAP PO SCH (10:19)
[2019-02-08] MEDS: AZITHROMYCIN IVPB 500 MG/250 ML BAG IVPB SCH (10:20)
--- NOTE | 2019-02-08 12:08 | PN ---
Progress Note, Physician History of Present Illness: stable doing well - Current Medication List Current Medications: Active Medications Acetaminophen (Tylenol -) 650 mg PO Q6H PRN PRN Reason: PAIN LEVEL 1-5 Last Admin: 02/05/19 02:07 Dose: 650 mg Albuterol/Ipratropium (Duoneb -) 1 amp NEB RQID [facility] Last Admin: 02/08/19 11:37 Dose: 1 amp Fenofibric Acid (Trilipix -) 135 mg PO DAILY [facility] Last Admin: 02/08/19 10:19 Dose: 135 mg Furosemide (Lasix Injection -) 40 mg IVPUSH DAILY [facility] Last Admin: 02/08/19 09:30 Dose: 40 mg Gabapentin (Neurontin -) 300 mg PO DAILY [facility] Last Admin: 02/08/19 09:37 Dose: 300 mg Heparin Sodium (Porcine) (Heparin -) 5,000 unit SQ TID [facility] Last Admin: 02/08/19 05:59 Dose: 5,000 unit Ceftriaxone Sodium 1 gm/ (Dextrose) 50 mls @ 100 mls/hr IVPB DAILY [facility]; Protocol Stop: 02/11/19 23:59 Last Admin: 02/08/19 09:03 Dose: 100 mls/hr Azithromycin (Zithromax 500mg Ivpb (Pre-Docked)) 500 mg in 250 mls @ 250 mls/ hr IVPB DAILY [facility] Stop: 02/11/19 11:00 Last Admin: 02/08/19 10:20 Dose: 250 mls/hr Insulin Aspart (Novolog Vial Sliding Scale -) 1 vial SQ TIDAC [facility]; Protocol Last Admin: 02/08/19 11:23 Dose: 4 unit Insulin Detemir (Levemir Vial) 15 units SQ [facility] Losartan Potassium (Cozaar -) 100 mg PO DAILY [facility] Last Admin: 02/08/19 09:36 Dose: 100 mg Methylprednisolone Sodium Succinate (Solu-Medrol -) 40 mg IVPUSH Q8H-IV [facility] Last Admin: 02/08/19 09:29 Dose: 40 mg Mometasone Furoate (Asmanex 110mcg -) 1 puff IH BID [facility] Last Admin: 02/08/19 09:37 Dose: 1 puff Montelukast Sodium (Singulair -) 10 mg PO HS [facility] Last Admin: 02/07/19 21:10 Dose: 10 mg Nifedipine (Procardia Xl -) 60 mg PO DAILY [facility] Last Admin: 02/08/19 09:35 Dose: 60 mg Lfwuv-8-Ypss Ethyl Esters (Lovaza -) 2 gm PO BID [facility] Last Admin: 02/08/19 10:18 Dose: 2 gm Pantoprazole Sodium (Protonix -) 40 mg PO AM [facility] Last Admin: 02/08/19 05:59 Dose: 40 mg - Objective Vital Signs: Vital Signs Temperature 97.6 F 02/08/19 10:00 Pulse Rate 69 02/08/19 10:00 Respiratory Rate 18 02/08/19 10:00 Blood Pressure 164/86 02/08/19 10:00 O2 Sat by Pulse Oximetry (%) 98 02/08/19 09:00 Constitutional: Yes: No Distress, Calm Cardiovascular: Yes: S1, S2 Respiratory: Yes: Regular, CTA Bilaterally Gastrointestinal: Yes: Normal Bowel Sounds, Soft Musculoskeletal: Yes: WNL Extremities: Yes: WNL Neurological: Yes: Alert, Oriented Psychiatric: Yes: Alert, Oriented Labs: CBC, BMP 02/06/19 05:35 02/06/19 05:35 INR, PTT INR 1.25 (0.83-1.09) H 02/04/19 20:10 Assessment/Plan Problem List - Problems (1) Acute respiratory failure with hypoxia Code(s): J96.01 - ACUTE RESPIRATORY FAILURE WITH HYPOXIA (2) Asthma exacerbation Code(s): J45.901 - UNSPECIFIED ASTHMA WITH (ACUTE) EXACERBATION Qualifiers: Asthma severity: moderate Asthma persistence: persistent Qualified Code(s ): J45.41 - Moderate persistent asthma with (acute) exacerbation (3) CHF exacerbation Code(s): I50.9 - HEART FAILURE, UNSPECIFIED Qualifiers: Heart failure type: unspecified Qualified Code(s): I50.9 - Heart failure, unspecified (4) Community acquired pneumonia Code(s): J18.9 - PNEUMONIA, UNSPECIFIED ORGANISM Qualifiers: Laterality: right Lung location: unspecified part of lung Qualified Code( s): J18.9 - Pneumonia, unspecified organism (5) GERD (gastroesophageal reflux disease) Code(s): K21.9 - GASTRO-ESOPHAGEAL REFLUX DISEASE WITHOUT ESOPHAGITIS (6) HLD (hyperlipidemia) Code(s): E78.5 - HYPERLIPIDEMIA, UNSPECIFIED (7) Hypertension Code(s): I10 - ESSENTIAL (PRIMARY) HYPERTENSION (8) Venous insufficiency Code(s): I87.2 - VENOUS INSUFFICIENCY (CHRONIC) (PERIPHERAL) Assessment/Plan 83 y.o. female with PMH of asthma/COPD, diastolic HF, HTN, HLD, and cellulitis presents with c/o SOB, cough and weakness that started one week ago PNA Asthma/COPD exacerbation CHF Fever Hyperglycemia HTN HLD Obesity continue Ceftriaxone/Azithromycin resp support incentive lisa rest as per the team
--- NOTE | 2019-02-08 12:11 | PN ---
Progress Note (short form) - Note Progress Note: OOB to chair on [place] O2. Reports breathing is better today. No acute events overnight. Intake & Output 02/05/19 02/06/19 02/07/19 02/08/19 23:59 23:59 23:59 23:59 Intake Total 100 980 650 300 Output Total 500 Balance 100 980 650 -200 Weight 183 lb 3.2 oz 181 lb 3.2 oz 181 lb 182 lb 9.6 oz Last Vital Signs Temp Pulse Resp BP Pulse Ox 97.6 F 69 18 164/86 98 02/08/19 10:00 02/08/19 10:00 02/08/19 10:00 02/08/19 10:00 02/08/19 09:00 Active Medications Acetaminophen (Tylenol -) 650 mg PO Q6H PRN PRN Reason: PAIN LEVEL 1-5 Last Admin: 02/05/19 02:07 Dose: 650 mg Albuterol/Ipratropium (Duoneb -) 1 amp NEB RQID [facility] Last Admin: 02/08/19 11:37 Dose: 1 amp Fenofibric Acid (Trilipix -) 135 mg PO DAILY [facility] Last Admin: 02/08/19 10:19 Dose: 135 mg Furosemide (Lasix Injection -) 40 mg IVPUSH DAILY [facility] Last Admin: 02/08/19 09:30 Dose: 40 mg Gabapentin (Neurontin -) 300 mg PO DAILY [facility] Last Admin: 02/08/19 09:37 Dose: 300 mg Heparin Sodium (Porcine) (Heparin -) 5,000 unit SQ TID [facility] Last Admin: 02/08/19 05:59 Dose: 5,000 unit Ceftriaxone Sodium 1 gm/ (Dextrose) 50 mls @ 100 mls/hr IVPB DAILY [facility]; Protocol Stop: 02/11/19 23:59 Last Admin: 02/08/19 09:03 Dose: 100 mls/hr Azithromycin (Zithromax 500mg Ivpb (Pre-Docked)) 500 mg in 250 mls @ 250 mls/ hr IVPB DAILY [facility] Stop: 02/11/19 11:00 Last Admin: 02/08/19 10:20 Dose: 250 mls/hr Insulin Aspart (Novolog Vial Sliding Scale -) 1 vial SQ TIDAC [facility]; Protocol Last Admin: 02/08/19 11:23 Dose: 4 unit Insulin Detemir (Levemir Vial) 15 units SQ HS [facility] Losartan Potassium (Cozaar -) 100 mg PO DAILY [facility] Last Admin: 02/08/19 09:36 Dose: 100 mg Methylprednisolone Sodium Succinate (Solu-Medrol -) 40 mg IVPUSH Q8H-IV [facility] Last Admin: 02/08/19 09:29 Dose: 40 mg Mometasone Furoate (Asmanex 110mcg -) 1 puff IH BID [facility] Last Admin: 02/08/19 09:37 Dose: 1 puff Montelukast Sodium (Singulair -) 10 mg PO HS [facility] Last Admin: 02/07/19 21:10 Dose: 10 mg Nifedipine (Procardia Xl -) 60 mg PO DAILY [facility] Last Admin: 02/08/19 09:35 Dose: 60 mg Jdyep-0-Zfey Ethyl Esters (Lovaza -) 2 gm PO BID [facility] Last Admin: 02/08/19 10:18 Dose: 2 gm Pantoprazole Sodium (Protonix -) 40 mg PO AM [facility] Last Admin: 02/08/19 05:59 Dose: 40 mg Gen: NAD at rest Heart: RRR Lung: few scattered rhonchi, decreased breath sounds at the bases Abd: soft, nontender Ext: no edema Laboratory Results - last 24 hr 02/07/19 02/07/19 02/08/19 12:15 15:51 06:01 POC Glucometer 300 322 244 02/08/19 11:21 POC Glucometer 212 Problem List - Problems (1) Pneumonia Code(s): J18.9 - PNEUMONIA, UNSPECIFIED ORGANISM (2) COPD with acute exacerbation Code(s): J44.1 - CHRONIC OBSTRUCTIVE PULMONARY DISEASE W (ACUTE) EXACERBATION A/P Pneumonia Acute Hypoxic Respiratory Failure to problem list. Acute COPD Exacerbation Acute on Chronic Diastolic Heart Failure HTN Hyperlipidemia - continue antibiotics - inhaled bronchodilators - short course of medrol - Change to prednisone today - O2 to keep SpO2 >90% - lasix - monitor urine output, creatinine - DVT prophylaxis - will need home O2 Dr Segura
[2019-02-08] MEDS: predniSONE 20 MG TABLET (UD) PO SCH (13:01)
[2019-02-08] MEDS: MONTELUKAST NA 10 MG TABLET PO SCH (21:12)
[2019-02-08] MEDS: INSULIN (LEVEMIR) 100 UNITS/ML UNITS SQ SCH (21:17)
[2019-02-09] MEDS: INSULIN SLIDING SCALE (NOVOLOG) 1 VIAL SQ SCH ×3 (06:15→16:19)
[2019-02-09] MEDS: HEPARIN NA (PORCINE) 5,000 UNITS/ML 1ML VIAL SQ SCH ×3 (06:38→21:40)
[2019-02-09] MEDS: PANTOPRAZOLE 40 MG TABLET (FP) PO SCH (06:38)
--- NOTE | 2019-02-09 07:09 | PN ---
Progress Note, Physician Chief Complaint: sob History of Present Illness: breathing much better--no more sob no cp, palp, syncope - Current Medication List Current Medications: Active Medications Acetaminophen (Tylenol -) 650 mg PO Q6H PRN PRN Reason: PAIN LEVEL 1-5 Last Admin: 02/05/19 02:07 Dose: 650 mg Albuterol/Ipratropium (Duoneb -) 1 amp NEB RQID [facility] Last Admin: 02/08/19 21:10 Dose: 1 amp Fenofibric Acid (Trilipix -) 135 mg PO DAILY [facility] Last Admin: 02/08/19 10:19 Dose: 135 mg Furosemide (Lasix Injection -) 40 mg IVPUSH DAILY [facility] Last Admin: 02/08/19 09:30 Dose: 40 mg Gabapentin (Neurontin -) 300 mg PO DAILY [facility] Last Admin: 02/08/19 09:37 Dose: 300 mg Heparin Sodium (Porcine) (Heparin -) 5,000 unit SQ TID [facility] Last Admin: 02/09/19 06:38 Dose: 5,000 unit Ceftriaxone Sodium 1 gm/ (Dextrose) 50 mls @ 100 mls/hr IVPB DAILY [facility]; Protocol Stop: 02/11/19 23:59 Last Admin: 02/08/19 09:03 Dose: 100 mls/hr Azithromycin (Zithromax 500mg Ivpb (Pre-Docked)) 500 mg in 250 mls @ 250 mls/ hr IVPB DAILY [facility] Stop: 02/11/19 11:00 Last Admin: 02/08/19 10:20 Dose: 250 mls/hr Insulin Aspart (Novolog Vial Sliding Scale -) 1 vial SQ TIDAC [facility]; Protocol Last Admin: 02/09/19 06:15 Dose: Not Given Insulin Detemir (Levemir Vial) 15 units SQ HS [facility] Last Admin: 02/08/19 21:17 Dose: 15 units Losartan Potassium (Cozaar -) 100 mg PO DAILY [facility] Last Admin: 02/08/19 09:36 Dose: 100 mg Mometasone Furoate (Asmanex 110mcg -) 1 puff IH BID [facility] Last Admin: 02/08/19 21:12 Dose: 1 puff Montelukast Sodium (Singulair -) 10 mg PO HS [facility] Last Admin: 02/08/19 21:12 Dose: 10 mg Nifedipine (Procardia Xl -) 60 mg PO DAILY [facility] Last Admin: 02/08/19 09:35 Dose: 60 mg Gcxrc-0-Bfja Ethyl Esters (Lovaza -) 2 gm PO BID [facility] Last Admin: 02/08/19 21:12 Dose: 2 gm Pantoprazole Sodium (Protonix -) 40 mg PO AM [facility] Last Admin: 02/09/19 06:38 Dose: 40 mg Prednisone (Deltasone -) 40 mg PO DAILY [facility] Last Admin: 02/08/19 13:01 Dose: 40 mg - Objective Vital Signs: Vital Signs Temperature 98.7 F 02/09/19 05:42 Pulse Rate 74 02/09/19 05:42 Respiratory Rate 18 02/09/19 05:42 Blood Pressure 151/71 02/09/19 05:42 O2 Sat by Pulse Oximetry (%) 98 02/08/19 21:00 Constitutional: Yes: Well Nourished, No Distress, Calm Cardiovascular: Yes: Regular Rate and Rhythm, S1, S2. No: Gallop, Murmur Respiratory: Yes: Regular, Wheezes (L base). No: Accessory Muscle Use Extremities: No: Cold Edema: Yes (1+ ankles) Neurological: Yes: Alert, Oriented Psychiatric: No: Agitated Labs: CBC, BMP 02/06/19 05:35 02/06/19 05:35 INR, PTT INR 1.25 (0.83-1.09) H 02/04/19 20:10 Assessment/Plan EKG: sinus, nl intervals, no ischemic changes echo 07/2018 nl LV/RV function, grade I diastolic dysfunction CXR: congestive changes, R infiltrate tele: SR shortness of breath, acute on chronic diastolic HF: - nl LV function on echo 07/2018 - receiving IV lasix 40 qd. minimal wt decline since admission, however sob resolved. same lasix. adding spirono today. rpt cxr elevated trop: - indeterminate range, flat trend, EKG no ischemic changes - likely demand in setting of CHF exac - unlikely ACS COPD, possible PNA: - manage per pulm, ID - receiving BDs, short course steroids HTN: - suboptimal - avoid BB given bronchospastic presentation - cont losartan, nifedipine. add spirono 25
[2019-02-09] MEDS: ALBUTEROL SO4 2.5/IPRATROPIUM 0.5 INH SOL 3 ML VIAL.NEB. NEB SCH ×4 (07:48→20:25)
[2019-02-09] MEDS ORDERED: DEXTROSE 5%-WATER - 50 ML IVPB ONE (08:39)
[2019-02-09] MEDS ORDERED: PT OWN MED DRAWER 7, Y5N ONE ×2 (08:39→21:35)
[2019-02-09] MEDS ORDERED: cefTRIAXone SODIUM 1 GM VIAL ONE (08:39)
[2019-02-09] MEDS: FUROSEMIDE 40 MG/4 ML INJECTABLE VIAL IVPUSH SCH (09:04)
[2019-02-09] MEDS: predniSONE 20 MG TABLET (UD) PO SCH (09:05)
[2019-02-09] MEDS: NIFEdipine E.R 60 MG TABLET (UD) PO SCH (09:05)
[2019-02-09] MEDS: LOSARTAN POTASSIUM 50 MG TABLET (FP) PO SCH (09:05)
[2019-02-09] MEDS: GABAPENTIN 300 MG CAPSULE (FP) PO SCH (09:05)
[2019-02-09] MEDS: SPIRONOLACTONE 25 MG TABLET (FP) PO SCH (09:05)
[2019-02-09] MEDS: AZITHROMYCIN IVPB 500 MG/250 ML BAG IVPB SCH (09:06)
[2019-02-09] MEDS: OMEGA-3 ACID ETHYL ESTERS (FATTY-ACIDS) 1 GM CAPSULE (FP) PO SCH ×2 (09:29→21:43)
[2019-02-09] MEDS: FENOFIBRIC ACID 135 MG CAP PO SCH (09:30)
[2019-02-09] MEDS: MOMETASONE FUROATE 110 MCG/IH INHALER IH SCH ×2 (09:30→21:40)
[2019-02-09 09:38] LABS: BLOOD UREA NITROGEN 38.1 mg/dL (7-18); CALCIUM 9.5 mg/dL (8.5-10.1); CREATININE 0.9 mg/dL (0.55-1.3); POTASSIUM 4.2 mmol/L (3.5-5.1)
[2019-02-09] MEDS: CEFTRIAXONE 1 GM in DEXTROSE 5%-WATER - 50 ML IVPB SCH (10:18)
--- NOTE | 2019-02-09 11:21 | PN ---
Progress Note, Physician History of Present Illness: stable no new issues - Current Medication List Current Medications: Active Medications Acetaminophen (Tylenol -) 650 mg PO Q6H PRN PRN Reason: PAIN LEVEL 1-5 Last Admin: 02/05/19 02:07 Dose: 650 mg Albuterol/Ipratropium (Duoneb -) 1 amp NEB RQID [facility] Last Admin: 02/09/19 07:48 Dose: 1 amp Fenofibric Acid (Trilipix -) 135 mg PO DAILY [facility] Last Admin: 02/09/19 09:30 Dose: 135 mg Furosemide (Lasix Injection -) 40 mg IVPUSH DAILY [facility] Last Admin: 02/09/19 09:04 Dose: 40 mg Gabapentin (Neurontin -) 300 mg PO DAILY [facility] Last Admin: 02/09/19 09:05 Dose: 300 mg Heparin Sodium (Porcine) (Heparin -) 5,000 unit SQ TID [facility] Last Admin: 02/09/19 06:38 Dose: 5,000 unit Ceftriaxone Sodium 1 gm/ (Dextrose) 50 mls @ 100 mls/hr IVPB DAILY [facility]; Protocol Stop: 02/11/19 23:59 Last Admin: 02/09/19 10:18 Dose: 100 mls/hr Azithromycin (Zithromax 500mg Ivpb (Pre-Docked)) 500 mg in 250 mls @ 250 mls/ hr IVPB DAILY [facility] Stop: 02/11/19 11:00 Last Admin: 02/09/19 09:06 Dose: 250 mls/hr Insulin Aspart (Novolog Vial Sliding Scale -) 1 vial SQ TIDAC [facility]; Protocol Last Admin: 02/09/19 11:07 Dose: 6 units Insulin Detemir (Levemir Vial) 15 units SQ [facility] Last Admin: 02/08/19 21:17 Dose: 15 units Losartan Potassium (Cozaar -) 100 mg PO DAILY [facility] Last Admin: 02/09/19 09:05 Dose: 100 mg Mometasone Furoate (Asmanex 110mcg -) 1 puff IH BID [facility] Last Admin: 02/09/19 09:30 Dose: 1 puff Montelukast Sodium (Singulair -) 10 mg PO HS [facility] Last Admin: 02/08/19 21:12 Dose: 10 mg Nifedipine (Procardia Xl -) 60 mg PO DAILY [facility] Last Admin: 02/09/19 09:05 Dose: 60 mg Cbemy-0-Yyzk Ethyl Esters (Lovaza -) 2 gm PO BID [facility] Last Admin: 02/09/19 09:29 Dose: 2 gm Pantoprazole Sodium (Protonix -) 40 mg PO AM [facility] Last Admin: 02/09/19 06:38 Dose: 40 mg Prednisone (Deltasone -) 40 mg PO DAILY [facility] Last Admin: 02/09/19 09:05 Dose: 40 mg Spironolactone (Aldactone -) 25 mg PO DAILY [facility] Last Admin: 02/09/19 09:05 Dose: 25 mg - Objective Vital Signs: Vital Signs Temperature 98.2 F 02/09/19 10:00 Pulse Rate 69 02/09/19 10:00 Respiratory Rate 18 02/09/19 10:00 Blood Pressure 156/62 02/09/19 10:00 O2 Sat by Pulse Oximetry (%) 95 02/09/19 09:00 Constitutional: Yes: No Distress, Calm Cardiovascular: Yes: S1, S2 Respiratory: Yes: Regular, CTA Bilaterally Gastrointestinal: Yes: Normal Bowel Sounds, Soft Musculoskeletal: Yes: WNL Extremities: Yes: WNL Neurological: Yes: Alert, Oriented Psychiatric: Yes: Alert, Oriented Labs: CBC, BMP 02/06/19 05:35 02/09/19 09:00 INR, PTT INR 1.25 (0.83-1.09) H 02/04/19 20:10 Assessment/Plan Problem List - Problems (1) Acute respiratory failure with hypoxia Code(s): J96.01 - ACUTE RESPIRATORY FAILURE WITH HYPOXIA (2) Asthma exacerbation Code(s): J45.901 - UNSPECIFIED ASTHMA WITH (ACUTE) EXACERBATION Qualifiers: Asthma severity: moderate Asthma persistence: persistent Qualified Code(s ): J45.41 - Moderate persistent asthma with (acute) exacerbation (3) CHF exacerbation Code(s): I50.9 - HEART FAILURE, UNSPECIFIED Qualifiers: Heart failure type: unspecified Qualified Code(s): I50.9 - Heart failure, unspecified (4) Community acquired pneumonia Code(s): J18.9 - PNEUMONIA, UNSPECIFIED ORGANISM Qualifiers: Laterality: right Lung location: unspecified part of lung Qualified Code( s): J18.9 - Pneumonia, unspecified organism (5) GERD (gastroesophageal reflux disease) Code(s): K21.9 - GASTRO-ESOPHAGEAL REFLUX DISEASE WITHOUT ESOPHAGITIS (6) HLD (hyperlipidemia) Code(s): E78.5 - HYPERLIPIDEMIA, UNSPECIFIED (7) Hypertension Code(s): I10 - ESSENTIAL (PRIMARY) HYPERTENSION (8) Venous insufficiency Code(s): I87.2 - VENOUS INSUFFICIENCY (CHRONIC) (PERIPHERAL) Assessment/Plan 83 y.o. female with PMH of asthma/COPD, diastolic HF, HTN, HLD, and cellulitis presents with c/o SOB, cough and weakness that started one week ago PNA Asthma/COPD exacerbation CHF Fever Hyperglycemia HTN HLD Obesity continue Ceftriaxone/Azithromycin resp support incentive lisa rest as per the team
--- NOTE | 2019-02-09 13:11 | PN ---
Progress Note (short form) - Note Progress Note: PULMONARY States breathing is improving. Less cough and wheezing. Vital Signs Period Temp Pulse Resp BP Sys/Elaine Pulse Ox Last 24 Hr 97.9 F-98.7 F 66-93 16-18 127-160/44-79 95-98 Gen: NAD at rest Heart: RRR Lung: decreased breath sounds at the bases Abd: soft, nontender Ext: no edema CBC, BMP 02/06/19 05:35 02/09/19 09:00 Active Medications Acetaminophen (Tylenol -) 650 mg PO Q6H PRN PRN Reason: PAIN LEVEL 1-5 Last Admin: 02/05/19 02:07 Dose: 650 mg Albuterol/Ipratropium (Duoneb -) 1 amp NEB RQID [facility] Last Admin: 02/09/19 11:35 Dose: 1 amp Fenofibric Acid (Trilipix -) 135 mg PO DAILY [facility] Last Admin: 02/09/19 09:30 Dose: 135 mg Furosemide (Lasix Injection -) 40 mg IVPUSH DAILY [facility] Last Admin: 02/09/19 09:04 Dose: 40 mg Gabapentin (Neurontin -) 300 mg PO DAILY [facility] Last Admin: 02/09/19 09:05 Dose: 300 mg Heparin Sodium (Porcine) (Heparin -) 5,000 unit SQ TID [facility] Last Admin: 02/09/19 13:05 Dose: 5,000 unit Ceftriaxone Sodium 1 gm/ (Dextrose) 50 mls @ 100 mls/hr IVPB DAILY [facility]; Protocol Stop: 02/11/19 23:59 Last Admin: 02/09/19 10:18 Dose: 100 mls/hr Azithromycin (Zithromax 500mg Ivpb (Pre-Docked)) 500 mg in 250 mls @ 250 mls/ hr IVPB DAILY [facility] Stop: 02/11/19 11:00 Last Admin: 02/09/19 09:06 Dose: 250 mls/hr Insulin Aspart (Novolog Vial Sliding Scale -) 1 vial SQ TIDAC [facility]; Protocol Last Admin: 02/09/19 11:07 Dose: 6 units Insulin Detemir (Levemir Vial) 15 units SQ HS [facility] Last Admin: 02/08/19 21:17 Dose: 15 units Losartan Potassium (Cozaar -) 100 mg PO DAILY [facility] Last Admin: 12/21/19 09:05 Dose: 100 mg Mometasone Furoate (Asmanex 110mcg -) 1 puff IH BID [facility] Last Admin: 02/09/19 09:30 Dose: 1 puff Montelukast Sodium (Singulair -) 10 mg PO HS [facility] Last Admin: 02/08/19 21:12 Dose: 10 mg Nifedipine (Procardia Xl -) 60 mg PO DAILY [facility] Last Admin: 02/09/19 09:05 Dose: 60 mg Ifggb-[id number] Ethyl Esters (Lovaza -) 2 gm PO BID [facility] Last Admin: 02/09/19 09:29 Dose: 2 gm Pantoprazole Sodium (Protonix -) 40 mg PO AM [facility] Last Admin: 02/09/19 06:38 Dose: 40 mg Prednisone (Deltasone -) 40 mg PO DAILY [facility] Last Admin: 02/09/19 09:05 Dose: 40 mg Spironolactone (Aldactone -) 25 mg PO DAILY [facility] Last Admin: 02/09/19 09:05 Dose: 25 mg A/P Pneumonia Acute COPD Exacerbation Acute on Chronic Diastolic Heart Failure HTN Hyperlipidemia - continue antibiotics - inhaled bronchodilators - prednisone taper - O2 to keep SpO2 >90% - lasix - monitor urine output, creatinine - DVT prophylaxis - will need home O2 Problem List - Problems (1) Pneumonia Code(s): J18.9 - PNEUMONIA, UNSPECIFIED ORGANISM (2) COPD with acute exacerbation Code(s): J44.1 - CHRONIC OBSTRUCTIVE PULMONARY DISEASE W (ACUTE) EXACERBATION
--- NOTE | 2019-02-09 13:35 | PN ---
Progress Note (short form) - Note Progress Note: Examined awake and alert coughing+ dry SOB better Vital Signs - 24 hr 02/06/19 02/06/19 02/06/19 15:00 17:32 21:00 Temperature 98.1 F 97.3 F L Pulse Rate 132 H 76 Respiratory 18 20 Rate Blood Pressure 103/53 L 127/59 L O2 Sat by Pulse 95 Oximetry (%) 02/06/19 02/07/19 02/07/19 22:00 01:54 05:00 Temperature 97.6 F 97.7 F 97.7 F Pulse Rate 75 73 77 Respiratory 20 20 20 Rate Blood Pressure 136/70 137/63 152/77 O2 Sat by Pulse Oximetry (%) 02/07/19 02/07/19 09:00 10:00 Temperature 97.5 F L Pulse Rate 85 Respiratory 20 Rate Blood Pressure 156/70 O2 Sat by Pulse 95 Oximetry (%) Current Medications Generic Name Dose Route Start Last Admin Trade Name Freq PRN Reason Stop Dose Admin Acetaminophen 650 mg 02/05/19 00:48 02/05/19 02:07 Tylenol - PO 650 mg Q6H PRN Administration PAIN LEVEL 1-5 Albuterol/Ipratropium 1 amp 02/05/19 08:00 02/07/19 08:24 Duoneb - NEB 1 amp RQID [facility] Administration Fenofibric Acid 135 mg 02/05/19 10:45 02/06/19 09:23 Trilipix - PO 135 mg DAILY [facility] Administration Furosemide 40 mg 02/05/19 10:00 02/07/19 10:05 Lasix Injection - IVPUSH 40 mg DAILY [facility] Administration Gabapentin 300 mg 02/05/19 10:00 02/07/19 10:04 Neurontin - PO 300 mg DAILY [facility] Administration Heparin Sodium (Porcine) 5,000 unit 02/05/19 06:00 02/07/19 06:17 Heparin - SQ 5,000 unit TID [facility] Administration Ceftriaxone Sodium 1 gm/ 50 mls @ 100 mls/hr 02/05/19 10:00 02/07/19 10:04 Dextrose IVPB 02/11/19 23:59 100 mls/hr DAILY [facility] Administration Protocol Azithromycin 500 mg in 250 mls @ 250 mls/hr 02/06/19 10:15 02/07/19 10:04 Zithromax 500mg Ivpb (Pre-Docked) IVPB 02/11/19 11:00 250 mls/hr DAILY [facility] Administration Insulin Aspart 1 vial 02/05/19 11:00 02/07/19 06:17 Novolog Vial Sliding Scale - SQ 4 unit TIDAC [facility] Administration Protocol Losartan Potassium 100 mg 02/05/19 10:45 02/07/19 10:04 Cozaar - PO 100 mg DAILY [facility] Administration Methylprednisolone Sodium Succinate 40 mg 02/05/19 02:00 02/07/19 10:04 Solu-Medrol - IVPUSH 40 mg Q8H-IV [facility] Administration Mometasone Furoate 1 puff 02/05/19 10:00 02/07/19 10:05 Asmanex 110mcg - IH 1 puff BID [facility] Administration Montelukast Sodium 10 mg 02/05/19 22:00 02/06/19 21:13 Singulair - PO 10 mg HS [facility] Administration Nifedipine 60 mg 02/05/19 10:00 02/07/19 10:04 Procardia Xl - PO 60 mg DAILY [facility] Administration [id number] Ethyl Esters 2 gm 02/05/19 10:00 02/06/19 21:14 Lovaza - PO 2 gm BID [facility] Administration Pantoprazole Sodium 40 mg 02/05/19 07:00 02/07/19 06:16 Protonix - PO 40 mg AM [facility] Administration Laboratory Results - last 24 hr 02/06/19 02/06/19 02/07/19 12:04 17:25 06:15 POC Glucometer 412 244 231 S1 S2 RRR Lungs ronchi B.L decreased crackles+ decreased Abd- soft, obese, NT trace edema PLAN monitor renal function , I and O taper prednisone nebs IV antibiotics urine antigens negative Influenza negative needs home O2 Problem List - Problems (1) Acute respiratory failure with hypoxia Code(s): J96.01 - ACUTE RESPIRATORY FAILURE WITH HYPOXIA (2) Asthma exacerbation Code(s): J45.901 - UNSPECIFIED ASTHMA WITH (ACUTE) EXACERBATION Qualifiers: Asthma severity: moderate Asthma persistence: persistent Qualified Code(s ): J45.41 - Moderate persistent asthma with (acute) exacerbation (3) CHF exacerbation Code(s): I50.9 - HEART FAILURE, UNSPECIFIED Qualifiers: Heart failure type: unspecified Qualified Code(s): I50.9 - Heart failure, unspecified (4) COPD with acute exacerbation Code(s): J44.1 - CHRONIC OBSTRUCTIVE PULMONARY DISEASE W (ACUTE) EXACERBATION (5) Community acquired pneumonia Code(s): J18.9 - PNEUMONIA, UNSPECIFIED ORGANISM Qualifiers: Laterality: right Lung location: unspecified part of lung Qualified Code( s): J18.9 - Pneumonia, unspecified organism (6) GERD (gastroesophageal reflux disease) Code(s): K21.9 - GASTRO-ESOPHAGEAL REFLUX DISEASE WITHOUT ESOPHAGITIS (7) HLD (hyperlipidemia) Code(s): E78.5 - HYPERLIPIDEMIA, UNSPECIFIED
[2019-02-09] MEDS: INSULIN (LEVEMIR) 100 UNITS/ML UNITS SQ SCH (21:41)
[2019-02-09] MEDS: MONTELUKAST NA 10 MG TABLET PO SCH (21:43)
[2019-02-10] MEDS: INSULIN SLIDING SCALE (NOVOLOG) 1 VIAL SQ SCH ×3 (06:05→17:17)
[2019-02-10] MEDS: HEPARIN NA (PORCINE) 5,000 UNITS/ML 1ML VIAL SQ SCH ×3 (06:13→21:19)
[2019-02-10] MEDS: PANTOPRAZOLE 40 MG TABLET (FP) PO SCH (06:13)
[2019-02-10 07:21] LABS: BLOOD UREA NITROGEN 34.6 mg/dL (7-18); CALCIUM 9.3 mg/dL (8.5-10.1); POTASSIUM 4.3 mmol/L (3.5-5.1)
[2019-02-10] MEDS: ALBUTEROL SO4 2.5/IPRATROPIUM 0.5 INH SOL 3 ML VIAL.NEB. NEB SCH ×4 (07:40→20:02)
--- NOTE | 2019-02-10 08:58 | PN ---
Progress Note, Physician Chief Complaint: sob History of Present Illness: no more sob (except when nasal passages obstructed) no cp, palpit, swelling - Current Medication List Current Medications: Active Medications Acetaminophen (Tylenol -) 650 mg PO Q6H PRN PRN Reason: PAIN LEVEL 1-5 Last Admin: 02/05/19 02:07 Dose: 650 mg Albuterol/Ipratropium (Duoneb -) 1 amp NEB RQID [facility] Last Admin: 02/10/19 07:40 Dose: 1 amp Fenofibric Acid (Trilipix -) 135 mg PO DAILY [facility] Last Admin: 02/09/19 09:30 Dose: 135 mg Furosemide (Lasix -) 40 mg PO DAILY [facility] Gabapentin (Neurontin -) 300 mg PO DAILY [facility] Last Admin: 02/09/19 09:05 Dose: 300 mg Heparin Sodium (Porcine) (Heparin -) 5,000 unit SQ TID [facility] Last Admin: 02/10/19 06:13 Dose: 5,000 unit Ceftriaxone Sodium 1 gm/ (Dextrose) 50 mls @ 100 mls/hr IVPB DAILY [facility]; Protocol Stop: 02/11/19 23:59 Last Admin: 02/09/19 10:18 Dose: 100 mls/hr Azithromycin (Zithromax 500mg Ivpb (Pre-Docked)) 500 mg in 250 mls @ 250 mls/ hr IVPB DAILY [facility] Stop: 02/11/19 11:00 Last Admin: 02/09/19 09:06 Dose: 250 mls/hr Insulin Aspart (Novolog Vial Sliding Scale -) 1 vial SQ TIDAC [facility]; Protocol Last Admin: 02/10/19 06:05 Dose: Not Given Insulin Detemir (Levemir Vial) 15 units SQ HS [facility] Last Admin: 02/09/19 21:41 Dose: 15 units Losartan Potassium (Cozaar -) 100 mg PO DAILY [facility] Last Admin: 02/09/19 09:05 Dose: 100 mg Mometasone Furoate (Asmanex 110mcg -) 1 puff IH BID [facility] Last Admin: 02/09/19 21:40 Dose: 1 puff Montelukast Sodium (Singulair -) 10 mg PO HS [facility] Last Admin: 02/09/19 21:43 Dose: 10 mg Nifedipine (Procardia Xl -) 60 mg PO DAILY [facility] Last Admin: 02/09/19 09:05 Dose: 60 mg Owpyf-9-[id number] Ethyl Esters (Lovaza -) 2 gm PO BID [facility] Last Admin: 02/09/19 21:43 Dose: 2 gm Pantoprazole Sodium (Protonix -) 40 mg PO AM [facility] Last Admin: 02/10/19 06:13 Dose: 40 mg Prednisone (Deltasone -) 40 mg PO DAILY [facility] Last Admin: 02/09/19 09:05 Dose: 40 mg Spironolactone (Aldactone -) 25 mg PO DAILY [facility] Last Admin: 02/09/19 09:05 Dose: 25 mg - Objective Vital Signs: Vital Signs Temperature 98.3 F 02/10/19 05:47 Pulse Rate 61 02/10/19 05:47 Respiratory Rate 18 02/10/19 05:47 Blood Pressure 144/97 02/10/19 05:47 O2 Sat by Pulse Oximetry (%) 95 02/09/19 20:18 Constitutional: Yes: Well Nourished, No Distress, Calm Cardiovascular: Yes: Regular Rate and Rhythm, S1, S2. No: Gallop, Murmur Respiratory: Yes: Regular, CTA Bilaterally, Wheezes (slight (bases)). No: Accessory Muscle Use, Rales Extremities: No: Cold Edema: Yes (trace ankles) Neurological: Yes: Alert, Oriented Psychiatric: No: Agitated Labs: CBC, BMP 02/06/19 05:35 02/10/19 06:10 INR, PTT INR 1.25 (0.83-1.09) H 02/04/19 20:10 Assessment/Plan EKG: sinus, nl intervals, no ischemic changes echo 07/2018 nl LV/RV function, grade I diastolic dysfunction CXR: congestive changes, R infiltrate tele: SR shortness of breath, acute on chronic diastolic HF: - nl LV function on echo 07/2018 - receiving IV lasix 40 qd. slight wt decline since admission, sob resolved. rpt CXR with marked improvement in alveolar edema, small bilat effusions present. - 02/10: spirono added. wt down 178 today (verbal from RN). probably euvolemic clinically. change lasix to 80 po daily. elevated trop: - indeterminate range, flat trend, EKG no ischemic changes - likely demand in setting of CHF exac - unlikely ACS COPD, possible PNA: - manage per pulm, ID - receiving BDs, short course steroids HTN: - suboptimal here - avoid BB given bronchospastic presentation - cont losartan, nifedipine. added spirono 25--BP improving D/C TELE
[2019-02-10] MEDS ORDERED: cefTRIAXone SODIUM 1 GM VIAL ONE (09:35)
[2019-02-10] MEDS ORDERED: PT OWN MED DRAWER 7, Y5N ONE ×3 (09:35→20:59)
[2019-02-10] MEDS ORDERED: DEXTROSE 5%-WATER - 50 ML IVPB ONE (09:35)
[2019-02-10] MEDS: predniSONE 20 MG TABLET (UD) PO SCH (09:41)
[2019-02-10] MEDS: GABAPENTIN 300 MG CAPSULE (FP) PO SCH (09:41)
[2019-02-10] MEDS: NIFEdipine E.R 60 MG TABLET (UD) PO SCH (09:41)
[2019-02-10] MEDS: LOSARTAN POTASSIUM 50 MG TABLET (FP) PO SCH (09:42)
[2019-02-10] MEDS: SPIRONOLACTONE 25 MG TABLET (FP) PO SCH (09:42)
[2019-02-10] MEDS: OMEGA-3 ACID ETHYL ESTERS (FATTY-ACIDS) 1 GM CAPSULE (FP) PO SCH ×2 (09:42→21:18)
[2019-02-10] MEDS: FENOFIBRIC ACID 135 MG CAP PO SCH (09:43)
[2019-02-10] MEDS: CEFTRIAXONE 1 GM in DEXTROSE 5%-WATER - 50 ML IVPB SCH (09:46)
[2019-02-10] MEDS: AZITHROMYCIN IVPB 500 MG/250 ML BAG IVPB SCH (09:46)
[2019-02-10] MEDS: MOMETASONE FUROATE 110 MCG/IH INHALER IH SCH ×2 (09:46→21:18)
[2019-02-10] MEDS ORDERED: FUROSEMIDE 40 MG TABLET (FP) PO SCH (10:00)
--- NOTE | 2019-02-10 11:39 | PN ---
Progress Note (short form) - Note Progress Note: Examined awake and alert coughing+ dry SOB better Vital Signs - 24 hr 02/09/19 02/09/19 02/10/19 20:18 22:00 05:47 Temperature 98.2 F 98.3 F Pulse Rate 66 61 Respiratory 18 18 Rate Blood Pressure 136/81 144/97 O2 Sat by Pulse 95 Oximetry (%) 02/10/19 02/10/19 02/10/19 09:00 13:43 18:04 Temperature 98.2 F 98.6 F Pulse Rate 69 80 Respiratory 22 H 18 Rate Blood Pressure 124/58 L 146/59 L O2 Sat by Pulse 93 L Oximetry (%) Current Medications Generic Name Dose Route Start Last Admin Trade Name Freq PRN Reason Stop Dose Admin Acetaminophen 650 mg 02/05/19 00:48 02/05/19 02:07 Tylenol - PO 650 mg Q6H PRN Administration PAIN LEVEL 1-5 Albuterol/Ipratropium 1 amp 02/05/19 08:00 02/10/19 15:50 Duoneb - NEB 1 amp RQID [facility] Administration Fenofibric Acid 135 mg 02/05/19 10:45 02/10/19 09:43 Trilipix - PO 135 mg DAILY [facility] Administration Furosemide 80 mg 02/11/19 10:00 Lasix - PO DAILY [facility] Gabapentin 300 mg 02/05/19 10:00 02/10/19 09:41 Neurontin - PO 300 mg DAILY [facility] Administration Heparin Sodium (Porcine) 5,000 unit 02/05/19 06:00 02/10/19 14:55 Heparin - SQ 5,000 unit TID [facility] Administration Ceftriaxone Sodium 1 gm/ 50 mls @ 100 mls/hr 02/05/19 10:00 02/10/19 09:46 Dextrose IVPB 02/11/19 23:59 100 mls/hr DAILY [facility] Administration Protocol Insulin Aspart 1 vial 02/05/19 11:00 02/10/19 17:17 Novolog Vial Sliding Scale - SQ 8 units TIDAC [facility] Administration Protocol Insulin Detemir 15 units 02/08/19 09:14 02/09/19 21:41 Levemir Vial SQ 15 units HS [facility] Administration Losartan Potassium 100 mg 02/05/19 10:45 02/10/19 09:42 Cozaar - PO 100 mg DAILY [facility] Administration Mometasone Furoate 1 puff 12/17/19 10:00 02/10/19 09:46 Asmanex 110mcg - IH 1 puff BID [facility] Administration Montelukast Sodium 10 mg 02/05/19 22:00 02/09/19 21:43 Singulair - PO 10 mg HS [facility] Administration Nifedipine 60 mg 02/05/19 10:00 02/10/19 09:41 Procardia Xl - PO 60 mg DAILY [facility] Administration Ngspf-2-Jyse Ethyl Esters 2 gm 02/05/19 10:00 02/10/19 09:42 Lovaza - PO 2 gm BID [facility] Administration Pantoprazole Sodium 40 mg 02/05/19 07:00 02/10/19 06:13 Protonix - PO 40 mg AM [facility] Administration Prednisone 40 mg 02/08/19 12:15 02/10/19 09:41 Deltasone - PO 40 mg DAILY [facility] Administration Sodium Chloride 2 spray 02/10/19 14:00 02/10/19 14:55 [place] - NS 2 spray TID [facility] Administration Spironolactone 25 mg 02/09/19 10:00 02/10/19 09:42 Aldactone - PO 25 mg DAILY [facility] Administration Laboratory Results - last 24 hr 02/09/19 02/10/19 02/10/19 20:33 06:04 06:10 Sodium 138 Potassium 4.3 Chloride 101 Carbon Dioxide 32 Anion Gap 5 L BUN 34.6 H Creatinine 1.0 Est GFR (CKD-EPI)AfAm 61.19 Est GFR (CKD-EPI)NonAf 52.79 POC Glucometer 284 91 Random Glucose 91 Calcium 9.3 02/10/19 02/10/19 12:03 17:16 Sodium Potassium Chloride Carbon Dioxide Anion Gap BUN Creatinine Est GFR (CKD-EPI)AfAm Est GFR (CKD-EPI)NonAf POC Glucometer 134 309 Random Glucose Calcium S1 S2 RRR Lungs ronchi B.L decreased crackles+ decreased Abd- soft, obese, NT trace edema PLAN monitor renal function , I and O taper prednisone nebs IV antibiotics- last day tomorrow urine antigens negative dc planning Influenza negative needs home O2 Problem List - Problems (1) Acute respiratory failure with hypoxia Code(s): J96.01 - ACUTE RESPIRATORY FAILURE WITH HYPOXIA (2) Asthma exacerbation Code(s): J45.901 - UNSPECIFIED ASTHMA WITH (ACUTE) EXACERBATION Qualifiers: Asthma severity: moderate Asthma persistence: persistent Qualified Code(s ): J45.41 - Moderate persistent asthma with (acute) exacerbation (3) CHF exacerbation Code(s): I50.9 - HEART FAILURE, UNSPECIFIED Qualifiers: Heart failure type: unspecified Qualified Code(s): I50.9 - Heart failure, unspecified (4) COPD with acute exacerbation Code(s): J44.1 - CHRONIC OBSTRUCTIVE PULMONARY DISEASE W (ACUTE) EXACERBATION (5) Community acquired pneumonia Code(s): J18.9 - PNEUMONIA, UNSPECIFIED ORGANISM Qualifiers: Laterality: right Lung location: unspecified part of lung Qualified Code( s): J18.9 - Pneumonia, unspecified organism (6) GERD (gastroesophageal reflux disease) Code(s): K21.9 - GASTRO-ESOPHAGEAL REFLUX DISEASE WITHOUT ESOPHAGITIS (7) HLD (hyperlipidemia) Code(s): E78.5 - HYPERLIPIDEMIA, UNSPECIFIED
--- NOTE | 2019-02-10 12:01 | PN ---
Progress Note (short form) - Note Progress Note: PULMONARY c/o epistaxis with oxygen. Saturating 93% on room air today. Vital Signs Period Temp Pulse Resp BP Sys/Elaine Pulse Ox Last 24 Hr 98.1 F-98.4 F 61-66 18-18 117-144/61-97 95 Gen: NAD at rest Heart: RRR Lung: decreased breath sounds at the bases Abd: soft, nontender Ext: no edema CBC, BMP 02/06/19 05:35 02/10/19 06:10 Active Medications Acetaminophen (Tylenol -) 650 mg PO Q6H PRN PRN Reason: PAIN LEVEL 1-5 Last Admin: 02/05/19 02:07 Dose: 650 mg Albuterol/Ipratropium (Duoneb -) 1 amp NEB RQID [facility] Last Admin: 02/10/19 07:40 Dose: 1 amp Fenofibric Acid (Trilipix -) 135 mg PO DAILY [facility] Last Admin: 02/10/19 09:43 Dose: 135 mg Furosemide (Lasix -) 80 mg PO DAILY [facility] Gabapentin (Neurontin -) 300 mg PO DAILY [facility] Last Admin: 02/10/19 09:41 Dose: 300 mg Heparin Sodium (Porcine) (Heparin -) 5,000 unit SQ TID [facility] Last Admin: 02/10/19 06:13 Dose: 5,000 unit Ceftriaxone Sodium 1 gm/ (Dextrose) 50 mls @ 100 mls/hr IVPB DAILY [facility]; Protocol Stop: 02/11/19 23:59 Last Admin: 02/10/19 09:46 Dose: 100 mls/hr Azithromycin (Zithromax 500mg Ivpb (Pre-Docked)) 500 mg in 250 mls @ 250 mls/ hr IVPB DAILY [facility] Stop: 02/11/19 11:00 Last Admin: 02/10/19 09:46 Dose: 250 mls/hr Insulin Aspart (Novolog Vial Sliding Scale -) 1 vial SQ TIDAC [facility]; Protocol Last Admin: 02/10/19 06:05 Dose: Not Given Insulin Detemir (Levemir Vial) 15 units SQ HS [facility] Last Admin: 02/09/19 21:41 Dose: 15 units Losartan Potassium (Cozaar -) 100 mg PO DAILY [facility] Last Admin: 02/10/19 09:42 Dose: 100 mg Mometasone Furoate (Asmanex 110mcg -) 1 puff IH BID [facility] Last Admin: 02/10/19 09:46 Dose: 1 puff Montelukast Sodium (Singulair -) 10 mg PO HS [facility] Last Admin: 02/09/19 21:43 Dose: 10 mg Nifedipine (Procardia Xl -) 60 mg PO DAILY [facility] Last Admin: 02/10/19 09:41 Dose: 60 mg Bxtky-4-Jplh Ethyl Esters (Lovaza -) 2 gm PO BID [facility] Last Admin: 02/10/19 09:42 Dose: 2 gm Pantoprazole Sodium (Protonix -) 40 mg PO AM [facility] Last Admin: 02/10/19 06:13 Dose: 40 mg Prednisone (Deltasone -) 40 mg PO DAILY [facility] Last Admin: 02/10/19 09:41 Dose: 40 mg Spironolactone (Aldactone -) 25 mg PO DAILY [facility] Last Admin: 02/10/19 09:42 Dose: 25 mg A/P Pneumonia Acute COPD Exacerbation Acute on Chronic Diastolic Heart Failure HTN Hyperlipidemia - continue antibiotics - inhaled bronchodilators - prednisone taper - O2 to keep SpO2 >90% - lasix - monitor urine output, creatinine - DVT prophylaxis - when ready for discharge, check ambulatory SpO2 on room air to assess for home O2 Problem List - Problems (1) Pneumonia Code(s): J18.9 - PNEUMONIA, UNSPECIFIED ORGANISM (2) COPD with acute exacerbation Code(s): J44.1 - CHRONIC OBSTRUCTIVE PULMONARY DISEASE W (ACUTE) EXACERBATION
[2019-02-10] MEDS: SODIUM CHLORIDE NASAL SPRAY 44 ML BOTTLE NS SCH ×2 (14:55→21:18)
--- NOTE | 2019-02-10 19:04 | PN ---
Progress Note, Physician History of Present Illness: Pt states she is feeling better. Still has some dry cough but without SOB, on O2 NC. Remains afebrile. - Current Medication List Current Medications: Active Medications Acetaminophen (Tylenol -) 650 mg PO Q6H PRN PRN Reason: PAIN LEVEL 1-5 Last Admin: 02/05/19 02:07 Dose: 650 mg Albuterol/Ipratropium (Duoneb -) 1 amp NEB RQID [facility] Last Admin: 02/10/19 15:50 Dose: 1 amp Fenofibric Acid (Trilipix -) 135 mg PO DAILY [facility] Last Admin: 02/10/19 09:43 Dose: 135 mg Furosemide (Lasix -) 80 mg PO DAILY [facility] Gabapentin (Neurontin -) 300 mg PO DAILY [facility] Last Admin: 02/10/19 09:41 Dose: 300 mg Heparin Sodium (Porcine) (Heparin -) 5,000 unit SQ TID [facility] Last Admin: 02/10/19 14:55 Dose: 5,000 unit Ceftriaxone Sodium 1 gm/ (Dextrose) 50 mls @ 100 mls/hr IVPB DAILY [facility]; Protocol Stop: 02/11/19 23:59 Last Admin: 02/10/19 09:46 Dose: 100 mls/hr Insulin Aspart (Novolog Vial Sliding Scale -) 1 vial SQ TIDAC [facility]; Protocol Last Admin: 02/10/19 17:17 Dose: 8 units Insulin Detemir (Levemir Vial) 15 units SQ HS [facility] Last Admin: 02/09/19 21:41 Dose: 15 units Losartan Potassium (Cozaar -) 100 mg PO DAILY [facility] Last Admin: 02/10/19 09:42 Dose: 100 mg Mometasone Furoate (Asmanex 110mcg -) 1 puff IH BID [facility] Last Admin: 02/10/19 09:46 Dose: 1 puff Montelukast Sodium (Singulair -) 10 mg PO HS [facility] Last Admin: 02/09/19 21:43 Dose: 10 mg Nifedipine (Procardia Xl -) 60 mg PO DAILY [facility] Last Admin: 02/10/19 09:41 Dose: 60 mg [id number]-[id number] Ethyl Esters (Lovaza -) 2 gm PO BID [facility] Last Admin: 02/10/19 09:42 Dose: 2 gm Pantoprazole Sodium (Protonix -) 40 mg PO AM [facility] Last Admin: 02/10/19 06:13 Dose: 40 mg Prednisone (Deltasone -) 40 mg PO DAILY [facility] Last Admin: 02/10/19 09:41 Dose: 40 mg Sodium Chloride ([place] Nasal [place] -) 2 spray NS TID [facility] Last Admin: 02/10/19 14:55 Dose: 2 spray Spironolactone (Aldactone -) 25 mg PO DAILY [facility] Last Admin: 02/10/19 09:42 Dose: 25 mg - Objective Vital Signs: Vital Signs Temperature 98.6 F 02/10/19 18:04 Pulse Rate 80 02/10/19 18:04 Respiratory Rate 18 02/10/19 18:04 Blood Pressure 146/59 L 02/10/19 18:04 O2 Sat by Pulse Oximetry (%) 93 L 02/10/19 09:00 Constitutional: Yes: No Distress, Calm Neck: Yes: Supple Cardiovascular: Yes: Regular Rate and Rhythm Respiratory: Yes: CTA Bilaterally Gastrointestinal: Yes: Normal Bowel Sounds, Soft Extremities: Yes: WNL Integumentary: Yes: WNL Neurological: Yes: Alert, Oriented Labs: CBC, BMP 02/06/19 05:35 02/10/19 06:10 INR, PTT INR 1.25 (0.83-1.09) H 02/04/19 20:10 Microbiology 02/05/19 11:00 Urine For Antigen Detection Legionella Antigen - Final 02/05/19 11:00 Urine For Antigen Detection Streptococcus pneumoniae Antigen (M - Final Problem List - Problems (1) Acute respiratory failure with hypoxia Code(s): J96.01 - ACUTE RESPIRATORY FAILURE WITH HYPOXIA (2) Asthma exacerbation Code(s): J45.901 - UNSPECIFIED ASTHMA WITH (ACUTE) EXACERBATION Qualifiers: Qualified Code(s): J45.41 - Moderate persistent asthma with (acute) exacerbation (3) CHF exacerbation Code(s): I50.9 - HEART FAILURE, UNSPECIFIED Qualifiers: Qualified Code(s): I50.9 - Heart failure, unspecified (4) Community acquired pneumonia Code(s): J18.9 - PNEUMONIA, UNSPECIFIED ORGANISM Qualifiers: Qualified Code(s): J18.9 - Pneumonia, unspecified organism (5) GERD (gastroesophageal reflux disease) Code(s): K21.9 - GASTRO-ESOPHAGEAL REFLUX DISEASE WITHOUT ESOPHAGITIS (6) HLD (hyperlipidemia) Code(s): E78.5 - HYPERLIPIDEMIA, UNSPECIFIED (7) Hypertension Code(s): I10 - ESSENTIAL (PRIMARY) HYPERTENSION (8) Venous insufficiency Code(s): I87.2 - VENOUS INSUFFICIENCY (CHRONIC) (PERIPHERAL) Assessment/Plan 83 y.o. female with PMH of asthma/COPD, diastolic HF, HTN, HLD, and cellulitis presents with c/o SOB, cough and weakness PNA Asthma/COPD exacerbation CHF Fever - resolved HTN HLD Obesity -- continue Ceftriaxone, d/c Azithromycin -- on BD, monitor O2 sats -- appears to be clinically improving
[2019-02-10] MEDS: MONTELUKAST NA 10 MG TABLET PO SCH (21:18)
[2019-02-10] MEDS: INSULIN (LEVEMIR) 100 UNITS/ML UNITS SQ SCH (21:19)
[2019-02-11] MEDS: INSULIN SLIDING SCALE (NOVOLOG) 1 VIAL SQ SCH ×3 (06:02→17:16)
[2019-02-11] MEDS: HEPARIN NA (PORCINE) 5,000 UNITS/ML 1ML VIAL SQ SCH ×2 (06:04→14:33)
[2019-02-11] MEDS: SODIUM CHLORIDE NASAL SPRAY 44 ML BOTTLE NS SCH ×2 (06:05→14:33)
[2019-02-11] MEDS: ALBUTEROL SO4 2.5/IPRATROPIUM 0.5 INH SOL 3 ML VIAL.NEB. NEB SCH ×3 (07:30→15:55)
[2019-02-11] MEDS ORDERED: cefTRIAXone SODIUM 1 GM VIAL ONE (08:06)
[2019-02-11] MEDS ORDERED: PT OWN MED DRAWER 7, Y5N ONE ×2 (08:06→09:04)
[2019-02-11] MEDS ORDERED: DEXTROSE 5%-WATER - 50 ML IVPB ONE (08:06)
[2019-02-11] MEDS: PANTOPRAZOLE 40 MG TABLET (FP) PO SCH (08:15)
[2019-02-11] MEDS: CEFTRIAXONE 1 GM in DEXTROSE 5%-WATER - 50 ML IVPB SCH (08:59)
[2019-02-11] MEDS: GABAPENTIN 300 MG CAPSULE (FP) PO SCH (08:59)
[2019-02-11] MEDS: SPIRONOLACTONE 25 MG TABLET (FP) PO SCH (08:59)
[2019-02-11] MEDS: MOMETASONE FUROATE 110 MCG/IH INHALER IH SCH (09:00)
[2019-02-11] MEDS: NIFEdipine E.R 60 MG TABLET (UD) PO SCH (09:01)
[2019-02-11] MEDS: FENOFIBRIC ACID 135 MG CAP PO SCH (09:04)
[2019-02-11] MEDS: OMEGA-3 ACID ETHYL ESTERS (FATTY-ACIDS) 1 GM CAPSULE (FP) PO SCH (09:05)
[2019-02-11] MEDS: LOSARTAN POTASSIUM 50 MG TABLET (FP) PO SCH (09:07)
[2019-02-11] MEDS: predniSONE 20 MG TABLET (UD) PO SCH (09:07)
--- NOTE | 2019-02-11 09:17 | PN ---
Progress Note, Physician Chief Complaint: sob History of Present Illness: denies sob, leg swelling no cp, palpit - Current Medication List Current Medications: Active Medications Acetaminophen (Tylenol -) 650 mg PO Q6H PRN PRN Reason: PAIN LEVEL 1-5 Last Admin: 02/05/19 02:07 Dose: 650 mg Albuterol/Ipratropium (Duoneb -) 1 amp NEB RQID [facility] Last Admin: 02/11/19 07:30 Dose: 1 amp Fenofibric Acid (Trilipix -) 135 mg PO DAILY [facility] Last Admin: 02/11/19 09:04 Dose: 135 mg Furosemide (Lasix -) 80 mg PO DAILY [facility] Last Admin: 02/11/19 08:59 Dose: 80 mg Gabapentin (Neurontin -) 300 mg PO DAILY [facility] Last Admin: 02/11/19 08:59 Dose: 300 mg Heparin Sodium (Porcine) (Heparin -) 5,000 unit SQ TID [facility] Last Admin: 02/11/19 06:04 Dose: 5,000 unit Ceftriaxone Sodium 1 gm/ (Dextrose) 50 mls @ 100 mls/hr IVPB DAILY [facility]; Protocol Stop: 02/11/19 23:59 Last Admin: 02/11/19 08:59 Dose: 100 mls/hr Insulin Aspart (Novolog Vial Sliding Scale -) 1 vial SQ TIDAC [facility]; Protocol Last Admin: 02/11/19 06:02 Dose: Not Given Insulin Detemir (Levemir Vial) 15 units SQ HS [facility] Last Admin: 02/10/19 21:19 Dose: 15 units Losartan Potassium (Cozaar -) 100 mg PO DAILY [facility] Last Admin: 02/11/19 09:07 Dose: 100 mg Mometasone Furoate (Asmanex 110mcg -) 1 puff IH BID [facility] Last Admin: 02/11/19 09:00 Dose: 1 puff Montelukast Sodium (Singulair -) 10 mg PO HS [facility] Last Admin: 02/10/19 21:18 Dose: 10 mg Nifedipine (Procardia Xl -) 60 mg PO DAILY [facility] Last Admin: 02/11/19 09:01 Dose: 60 mg [id number]-[id number] Ethyl Esters (Lovaza -) 2 gm PO BID [facility] Last Admin: 02/11/19 09:05 Dose: 2 gm Pantoprazole Sodium (Protonix -) 40 mg PO AM [facility] Last Admin: 02/11/19 08:15 Dose: 40 mg Prednisone (Deltasone -) 40 mg PO DAILY [facility] Last Admin: 02/11/19 09:07 Dose: 40 mg Sodium Chloride ([place] Nasal [place] -) 2 spray NS TID [facility] Last Admin: 02/11/19 06:05 Dose: 2 spray Spironolactone (Aldactone -) 25 mg PO DAILY [facility] Last Admin: 02/11/19 08:59 Dose: 25 mg - Objective Vital Signs: Vital Signs Temperature 97.9 F 02/11/19 08:14 Pulse Rate 62 02/11/19 08:14 Respiratory Rate 18 02/11/19 08:14 Blood Pressure 135/59 L 02/11/19 08:14 O2 Sat by Pulse Oximetry (%) 95 02/10/19 20:31 Constitutional: Yes: Well Nourished, No Distress, Calm Cardiovascular: Yes: Regular Rate and Rhythm, S1, S2. No: Gallop, Murmur Respiratory: Yes: Regular, Rhonchi. No: Accessory Muscle Use, Rales Extremities: No: Cold Edema: Yes (trace ankles) Neurological: Yes: Alert, Oriented Psychiatric: No: Agitated Labs: CBC, BMP 02/06/19 05:35 02/10/19 06:10 INR, PTT INR 1.25 (0.83-1.09) H 02/04/19 20:10 Assessment/Plan EKG: sinus, nl intervals, no ischemic changes echo 07/2018 nl LV/RV function, grade I diastolic dysfunction CXR: congestive changes, R infiltrate tele: SR shortness of breath, acute on chronic diastolic HF: - nl LV function on echo 07/2018 - receiving IV lasix 40 qd, spirono. slight wt decline since admission, sob resolved. rpt CXR with marked improvement in alveolar edema, small bilat effusions present. - wt down, probably euvolemic clinically. changed to lasix 80 po daily. elevated trop: - indeterminate range, flat trend, EKG no ischemic changes - likely demand in setting of CHF exac - unlikely ACS COPD, possible PNA: - manage per pulm, ID - receiving BDs, short course steroids HTN: - suboptimal here - avoid BB given bronchospastic presentation - cont losartan, nifedipine. added spirono 25--BP improving D/C TELE OK FOR D/C FROM [facility] P.O.VAfia
[2019-02-11] MEDS ORDERED: FUROSEMIDE 40 MG TABLET (FP) PO SCH (10:00)
--- NOTE | 2019-02-11 11:11 | DS ---
Physical Examination Vital Signs: Vital Signs Temperature 97.9 F 02/11/19 08:14 Pulse Rate 93 H 02/11/19 10:42 Respiratory Rate 18 02/11/19 08:14 Blood Pressure 135/59 L 02/11/19 08:14 O2 Sat by Pulse Oximetry (%) 94 L 02/11/19 10:42 Findings/Remarks: pt seen/ examined chart reviewed awake/ comfortable wants to go home denies cp. afebrile Constitutional: Yes: No Distress, Calm Eyes: Yes: Conjunctiva Clear Neck: Yes: Supple Cardiovascular: Yes: Regular Rate and Rhythm Respiratory: Yes: Diminished Gastrointestinal: Yes: Soft Edema: No Neurological: Yes: Alert Psychiatric: Yes: Alert Labs: CBC, BMP 02/06/19 05:35 02/10/19 06:10 Discharge Summary Problems reviewed: Yes Reason For Visit: EXACERBATION OF ASTHMA/ACUTE ON CHRONIC CONGESTIVE Current Active Problems Acute respiratory failure with hypoxia (Acute) Asthma exacerbation (Acute) CHF exacerbation (Acute) COPD with acute exacerbation (Acute) Community acquired pneumonia (Acute) Elevated troponin (Acute) GERD (gastroesophageal reflux disease) (Acute) HLD (hyperlipidemia) (Acute) Peripheral neuropathy (Acute) Pneumonia (Acute) Hospital Course: admitted 2 to copd exac/ pneumonia treated with abx/ steroids i/d followed as well as pulmonary much better will d/c home- on home oxygen- d/w RN also meds reconcilled will send on augmentin f/u cxr in 3- 4 weeks advised f/u with pmd/ poulmonary meds reconcilled/ prescribed as needed taper steroids Condition: Improved - Instructions Disposition: HOME - Home Medications Comprehensive Discharge Medication List: Ambulatory Orders [place] 3-6-9 1,200 mg Softgel 2 tab PO BID 09/11/15 Fenofibrate [Lipofen] 1 tab PO DAILY 03/30/18 Fluticasone Propionate [Flovent Diskus] 1 puff IH BID 03/30/18 Losartan Potassium 1 tab PO DAILY 03/30/18 Montelukast Sodium [Singulair] 10 mg PO DAILY 03/30/18 Omeprazole 40 mg PO AM 07/27/18 Gabapentin 300 mg PO DAILY 02/04/19 Nifedipine [Nifedipine ER] 60 mg PO DAILY 02/04/19 Acetaminophen [Tylenol .Regular Strength -] 650 mg PO Q6H PRN tablet 02/11/19 Albuterol 2.5/Ipratropium 0.5 [Duoneb -] 1 amp NEB RQID amp 02/11/19 Amoxicillin/Potassium Clav [Augmentin 875-125 Tablet] 1 each PO BID #10 tablet 02/11/19 Furosemide [Lasix -] 80 mg PO DAILY #60 tablet 02/11/19 Mometasone Furoate [Asmanex 110Mcg -] 1 puff IH BID inhaler 02/11/19 Spironolactone [Aldactone -] 25 mg PO DAILY #30 tablet 02/11/19 predniSONE [Deltasone -] 20 mg PO DAILY #30 tablet 02/11/19
--- NOTE | 2019-02-11 11:43 | PN ---
Progress Note (short form) - Note Progress Note: OOB to chair. Receiving a BD TX. Reports breathing is overall better. No acute events overnight. Qualified for Home O2, saturation 88%. Intake & Output 02/08/19 02/09/19 02/10/19 02/11/19 23:59 23:59 23:59 23:59 Intake Total 950 710 720 Output Total 500 Balance 450 710 720 Weight 182 lb 9.6 oz 180 lb 12.8 oz 178 lb 176 lb 8 oz Last Vital Signs Temp Pulse Resp BP Pulse Ox 97.9 F 93 H 18 135/59 L 94 L 02/11/19 08:14 02/11/19 10:42 02/11/19 08:14 02/11/19 08:14 02/11/19 10:42 Active Medications Acetaminophen (Tylenol -) 650 mg PO Q6H PRN PRN Reason: PAIN LEVEL 1-5 Last Admin: 02/05/19 02:07 Dose: 650 mg Albuterol/Ipratropium (Duoneb -) 1 amp NEB RQID [facility] Last Admin: 02/11/19 07:30 Dose: 1 amp Fenofibric Acid (Trilipix -) 135 mg PO DAILY [facility] Last Admin: 02/11/19 09:04 Dose: 135 mg Furosemide (Lasix -) 80 mg PO DAILY [facility] Last Admin: 02/11/19 08:59 Dose: 80 mg Gabapentin (Neurontin -) 300 mg PO DAILY [facility] Last Admin: 02/11/19 08:59 Dose: 300 mg Heparin Sodium (Porcine) (Heparin -) 5,000 unit SQ TID [facility] Last Admin: 02/11/19 06:04 Dose: 5,000 unit Ceftriaxone Sodium 1 gm/ (Dextrose) 50 mls @ 100 mls/hr IVPB DAILY [facility]; Protocol Stop: 02/11/19 23:59 Last Admin: 02/11/19 08:59 Dose: 100 mls/hr Insulin Aspart (Novolog Vial Sliding Scale -) 1 vial SQ TIDAC [facility]; Protocol Last Admin: 02/11/19 11:39 Dose: 4 units Insulin Detemir (Levemir Vial) 15 units SQ HS [facility] Last Admin: 02/10/19 21:19 Dose: 15 units Losartan Potassium (Cozaar -) 100 mg PO DAILY [facility] Last Admin: 02/11/19 09:07 Dose: 100 mg Mometasone Furoate (Asmanex 110mcg -) 1 puff IH BID [facility] Last Admin: 02/11/19 09:00 Dose: 1 puff Montelukast Sodium (Singulair -) 10 mg PO HS [facility] Last Admin: 02/10/19 21:18 Dose: 10 mg Nifedipine (Procardia Xl -) 60 mg PO DAILY [facility] Last Admin: 02/11/19 09:01 Dose: 60 mg [id number]-3-Hvlc Ethyl Esters (Lovaza -) 2 gm PO BID [facility] Last Admin: 02/11/19 09:05 Dose: 2 gm Pantoprazole Sodium (Protonix -) 40 mg PO AM [facility] Last Admin: 02/11/19 08:15 Dose: 40 mg Prednisone (Deltasone -) 40 mg PO DAILY [facility] Last Admin: 02/11/19 09:07 Dose: 40 mg Sodium Chloride ([place] Nasal [place] -) 2 spray NS TID [facility] Last Admin: 02/11/19 06:05 Dose: 2 spray Spironolactone (Aldactone -) 25 mg PO DAILY [facility] Last Admin: 02/11/19 08:59 Dose: 25 mg Gen: NAD at rest Heart: RRR Lung: decreased breath sounds at the bases, few scattered rhonchi Abd: soft, nontender Ext: no edema Laboratory Results - last 24 hr 02/10/19 02/10/19 02/11/19 12:03 17:16 05:47 POC Glucometer 134 309 110 02/11/19 11:27 POC Glucometer 236 A/P Pneumonia Acute COPD Exacerbation Acute on Chronic Diastolic Heart Failure HTN Hyperlipidemia - continue antibiotics - inhaled bronchodilators - prednisone taper - O2 to keep SpO2 >90% - lasix - monitor urine output, creatinine - DVT prophylaxis - when ready for discharge, check ambulatory SpO2 on room air to assess for home O2 Problem List - Problems (1) Pneumonia Code(s): J18.9 - PNEUMONIA, UNSPECIFIED ORGANISM (2) COPD with acute exacerbation Code(s): J44.1 - CHRONIC OBSTRUCTIVE PULMONARY DISEASE W (ACUTE) EXACERBATION A/P Pneumonia Acute COPD Exacerbation Acute on Chronic Diastolic Heart Failure HTN Hyperlipidemia - inhaled bronchodilators - prednisone taper - O2 to keep SpO2 >90% - lasix - No smoking - monitor urine output, creatinine - DVT prophylaxis - Patient has qualified for Home O2 and is being arranged by [facility]
--- NOTE | 2019-02-11 15:25 | PN ---
Progress Note, Physician - Current Medication List Current Medications: Active Medications Acetaminophen (Tylenol -) 650 mg PO Q6H PRN PRN Reason: PAIN LEVEL 1-5 Last Admin: 02/05/19 02:07 Dose: 650 mg Albuterol/Ipratropium (Duoneb -) 1 amp NEB RQID [facility] Last Admin: 02/11/19 07:30 Dose: 1 amp Fenofibric Acid (Trilipix -) 135 mg PO DAILY [facility] Last Admin: 02/11/19 09:04 Dose: 135 mg Furosemide (Lasix -) 80 mg PO DAILY [facility] Last Admin: 02/11/19 08:59 Dose: 80 mg Gabapentin (Neurontin -) 300 mg PO DAILY [facility] Last Admin: 02/11/19 08:59 Dose: 300 mg Heparin Sodium (Porcine) (Heparin -) 5,000 unit SQ TID [facility] Last Admin: 02/11/19 14:33 Dose: 5,000 unit Ceftriaxone Sodium 1 gm/ (Dextrose) 50 mls @ 100 mls/hr IVPB DAILY [facility]; Protocol Stop: 02/11/19 23:59 Last Admin: 02/11/19 08:59 Dose: 100 mls/hr Insulin Aspart (Novolog Vial Sliding Scale -) 1 vial SQ TIDAC [facility]; Protocol Last Admin: 02/11/19 11:39 Dose: 4 units Insulin Detemir (Levemir Vial) 15 units SQ HS [facility] Last Admin: 02/10/19 21:19 Dose: 15 units Losartan Potassium (Cozaar -) 100 mg PO DAILY [facility] Last Admin: 02/11/19 09:07 Dose: 100 mg Mometasone Furoate (Asmanex 110mcg -) 1 puff IH BID [facility] Last Admin: 02/11/19 09:00 Dose: 1 puff Montelukast Sodium (Singulair -) 10 mg PO HS [facility] Last Admin: 02/10/19 21:18 Dose: 10 mg Nifedipine (Procardia Xl -) 60 mg PO DAILY [facility] Last Admin: 02/11/19 09:01 Dose: 60 mg Klwvz-3-Zeaf Ethyl Esters (Lovaza -) 2 gm PO BID [facility] Last Admin: 02/11/19 09:05 Dose: 2 gm Pantoprazole Sodium (Protonix -) 40 mg PO AM [facility] Last Admin: 02/11/19 08:15 Dose: 40 mg Prednisone (Deltasone -) 40 mg PO DAILY [facility] Last Admin: 02/11/19 09:07 Dose: 40 mg Sodium Chloride ([place] Nasal [place] -) 2 spray NS TID [facility] Last Admin: 02/11/19 14:33 Dose: 2 spray Spironolactone (Aldactone -) 25 mg PO DAILY [facility] Last Admin: 02/11/19 08:59 Dose: 25 mg - Objective Vital Signs: Vital Signs Temperature 98.7 F 02/11/19 14:09 Pulse Rate 65 02/11/19 14:09 Respiratory Rate 20 02/11/19 14:09 Blood Pressure 124/54 L 02/11/19 14:09 O2 Sat by Pulse Oximetry (%) 94 L 02/11/19 10:42 Labs: CBC, BMP 02/06/19 05:35 02/10/19 06:10 INR, PTT INR 1.25 (0.83-1.09) H 02/04/19 20:10
[2019-02-11 17:44] VITALS: BP 129/66; PULSE 68; TEMP 98.4
== END 2019-02-11 20:41 | disposition home or self-care (01) | DRG 291 ==
LOC: JER 18:55 → JERBED 21:01 → J4S 02-05 20:44
PROVIDERS: ADMIT Internal Medicine; ATTEND Internal Medicine
DX: I11.0 Hypertensive heart disease with heart failure (principal); J96.01 Acute respiratory failure with hypoxia; J18.9 Pneumonia, unspecified organism; J45.41 Moderate persistent asthma with (acute) exacerbation; I24.8 Other forms of acute ischemic heart disease; J44.1 Chronic obstructive pulmonary disease with (acute) exacerbation; J44.0 Chronic obstructive pulmonary disease with (acute) lower respiratory infection; I50.33 Acute on chronic diastolic (congestive) heart failure; E66.9 Obesity, unspecified; Z68.34 Body mass index [BMI] 34.0-34.9, adult; E78.5 Hyperlipidemia, unspecified; G62.9 Polyneuropathy, unspecified; K21.9 Gastro-esophageal reflux disease without esophagitis; R73.9 Hyperglycemia, unspecified
CPT/HCPCS: 36415; 71045-TC-FY; 80048; 80053; 82550; 82553; 82962; 83036; 83880; 84484; 85025; 85027; 85610; 87804; 87899; 93005; 93010; 94640; 94761; 99285-25; J1644

== ENCOUNTER 2022-11-09 13:33 | Inpatient (IN) | payer OTHER ==
[2022-11-09 13:59] VITALS: BMI 35.2
[2022-11-09 16:03] LABS: BASO % 0.1 % (0-2.0); EOS % 0.6 % (0-4.5); HEMATOCRIT 36.6 % (32.4-45.2); HEMOGLOBIN 11.9 GM/dL (10.7-15.3); LYMPH % 11.2 % (8-40); MCH 28.9 pg (25.7-33.7); MCHC 32.5 g/dl (32.0-36.0); MEAN CELL VOLUME 89.1 fl (80-96); MEAN PLT VOLUME 7.3 fl (7.5-11.1); MONO % 6.8 % (3.8-10.2); NEUT % 81.3 % (42.8-82.8); PLATELET COUNT 343 10^3/uL (134-434); RBC 4.11 M/mm3 (3.60-5.2); RDW 14.4 % (11.6-15.6); WHITE BLOOD COUNT 14.7 K/mm3 (4.0-10.0)
[2022-11-09 16:14] LABS: INR 1.24 (0.83-1.09); PROTHROMBIN TIME (PATIENT) 14.4 SEC (9.7-13.0)
[2022-11-09] MEDS ORDERED: CEFAZOLIN SODIUM 2 GM VIAL IVPB ONE (16:15)
[2022-11-09 16:17] LABS: ACTIVATED PTT 30.1 SECONDS (25.2-36.5)
[2022-11-09] MEDS ORDERED: ceFAZolin SODIUM 1 GM VIAL ONE (16:24)
[2022-11-09] MEDS ORDERED: CEFAZOLIN SODIUM 2 GM VIAL ONE (16:25)
[2022-11-09 17:05] LABS: POTASSIUM 4.1 mmol/L (3.5-5.1)
[2022-11-09 17:07] LABS: CALCIUM 8.5 mg/dL (8.5-10.1)
[2022-11-09 17:08] LABS: ALBUMIN 2.9 g/dl (3.4-5.0); BLOOD UREA NITROGEN 24.6 mg/dL (7-18)
[2022-11-09 17:11] LABS: CREATININE 1.4 mg/dL (0.55-1.3)
[2022-11-09 17:13] LABS: BILIRUBIN,TOTAL 0.5 mg/dL (0.2-1); TOT PROT 6.4 g/dl (6.4-8.2)
[2022-11-09] MEDS ORDERED: PANTOPRAZOLE 40 MG TABLET PO ONE (17:33)
[2022-11-09] MEDS ORDERED: ROSUVASTATIN CA 20 MG TABLET PO ONE (17:33)
[2022-11-09] MEDS ORDERED: LACTATED RINGERS SOLUTION 1000 ML INFUS.BAG IV ONE ×2 (18:05→18:07)
[2022-11-09] MEDS: CEFAZOLIN SODIUM 2 GM in DEXTROSE 5%-WATER 100 ML IVPB SCH (18:44)
[2022-11-10] MEDS ORDERED: CEFAZOLIN SODIUM 2 GM VIAL ONE (01:14)
[2022-11-10] MEDS: CEFAZOLIN SODIUM 2 GM in DEXTROSE 5%-WATER 100 ML IVPB SCH ×3 (01:52→17:27)
[2022-11-10] MEDS ORDERED: PANTOPRAZOLE 40 MG TABLET PO ONE (07:42)
[2022-11-10] MEDS: PANTOPRAZOLE 40 MG TABLET PO SCH (07:45)
[2022-11-10] MEDS ORDERED: ENOXAPARIN NA (PORCINE) 60 MG/0.6 ML DISP.SYRIN SQ SCH (10:00)
[2022-11-10 11:05] LABS: BASO % 0.3 % (0-2.0); EOS % 1.7 % (0-4.5); HEMATOCRIT 33.7 % (32.4-45.2); HEMOGLOBIN 11.3 GM/dL (10.7-15.3); LYMPH % 12.2 % (8-40); MCH 29.4 pg (25.7-33.7); MCHC 33.5 g/dl (32.0-36.0); MEAN CELL VOLUME 87.7 fl (80-96); MEAN PLT VOLUME 7.2 fl (7.5-11.1); MONO % 6.6 % (3.8-10.2); NEUT % 79.2 % (42.8-82.8); PLATELET COUNT 309 10^3/uL (134-434); RBC 3.84 M/mm3 (3.60-5.2); RDW 14.3 % (11.6-15.6); WHITE BLOOD COUNT 10.2 K/mm3 (4.0-10.0)
[2022-11-10 11:47] LABS: POTASSIUM 3.5 mmol/L (3.5-5.1)
[2022-11-10 11:49] LABS: CALCIUM 8.1 mg/dL (8.5-10.1)
[2022-11-10 11:50] LABS: BLOOD UREA NITROGEN 19.7 mg/dL (7-18)
[2022-11-10 11:53] LABS: CREATININE 1.1 mg/dL (0.55-1.3)
[2022-11-10] MEDS: ENOXAPARIN NA (PORCINE) 40 MG/0.4 ML DISP.SYRIN SQ SCH (12:16)
[2022-11-10] MEDS: ASPIRIN 81 MG CHEWABLE TABLETS PO SCH (12:17)
[2022-11-10] MEDS: NIFEdipine E.R. 90 MG TABLET PO SCH ×2 (12:17→12:20)
[2022-11-10] MEDS: SOLIFENACIN SUCCINATE 5 MG TAB PO SCH (12:17)
[2022-11-10] MEDS: LOSARTAN POTASSIUM 50 MG TABLET PO SCH ×2 (12:18→12:21)
[2022-11-10] MEDS: HYDROCHLOROTHIAZIDE 25 MG TABLET (FP) PO SCH (12:19)
[2022-11-10] MEDS: ROSUVASTATIN CA 20 MG TABLET PO SCH (22:13)
[2022-11-11] MEDS: CEFAZOLIN SODIUM 2 GM in DEXTROSE 5%-WATER 100 ML IVPB SCH ×3 (01:06→18:13)
[2022-11-11] MEDS: PANTOPRAZOLE 40 MG TABLET PO SCH (06:44)
[2022-11-11] MEDS: ENOXAPARIN NA (PORCINE) 40 MG/0.4 ML DISP.SYRIN SQ SCH (09:59)
[2022-11-11] MEDS: ASPIRIN 81 MG CHEWABLE TABLETS PO SCH (09:59)
[2022-11-11] MEDS: SOLIFENACIN SUCCINATE 5 MG TAB PO SCH (09:59)
[2022-11-11] MEDS: LOSARTAN POTASSIUM 50 MG TABLET PO SCH (10:01)
[2022-11-11] MEDS: NIFEdipine E.R. 90 MG TABLET PO SCH (10:01)
[2022-11-11] MEDS: HYDROCHLOROTHIAZIDE 25 MG TABLET (FP) PO SCH (10:01)
[2022-11-11] MEDS ORDERED: MINERAL OIL/PETROLAT/WATER TOPICAL CREAM 454 GM JAR TP PRN (14:24)
[2022-11-11] MEDS: MINERAL OIL/PETROLAT/WATER TOPICAL CREAM 113 GM JAR TP PRN (15:53)
[2022-11-11] MEDS: ROSUVASTATIN CA 20 MG TABLET PO SCH (21:18)
[2022-11-12] MEDS: CEFAZOLIN SODIUM 2 GM in DEXTROSE 5%-WATER 100 ML IVPB SCH ×3 (01:12→17:26)
[2022-11-12] MEDS: PANTOPRAZOLE 40 MG TABLET PO SCH (06:21)
[2022-11-12 07:59] LABS: BASO % 0.3 % (0-2.0); HEMATOCRIT 33.7 % (32.4-45.2); LYMPH % 16.7 % (8-40); MCH 28.6 pg (25.7-33.7); MCHC 32.6 g/dl (32.0-36.0); MEAN CELL VOLUME 87.9 fl (80-96); MEAN PLT VOLUME 7.4 fl (7.5-11.1); PLATELET COUNT 289 10^3/uL (134-434); RBC 3.83 M/mm3 (3.60-5.2); RDW 14.4 % (11.6-15.6); WHITE BLOOD COUNT 7.7 K/mm3 (4.0-10.0)
[2022-11-12 08:12] LABS: POTASSIUM 3.8 mmol/L (3.5-5.1)
[2022-11-12 08:15] LABS: BLOOD UREA NITROGEN 14.6 mg/dL (7-18)
[2022-11-12 08:18] LABS: CREATININE 0.9 mg/dL (0.55-1.3)
[2022-11-12] MEDS: NIFEdipine E.R. 90 MG TABLET PO SCH (10:01)
[2022-11-12] MEDS: LOSARTAN POTASSIUM 50 MG TABLET PO SCH (10:01)
[2022-11-12] MEDS: ASPIRIN 81 MG CHEWABLE TABLETS PO SCH (10:01)
[2022-11-12] MEDS: ENOXAPARIN NA (PORCINE) 40 MG/0.4 ML DISP.SYRIN SQ SCH (10:01)
[2022-11-12] MEDS: POLYETHYLENE GLYCOL (HEALTHYLAX) 3350 17 GM PACKET PO SCH ×2 (10:02→10:04)
[2022-11-12] MEDS: SOLIFENACIN SUCCINATE 5 MG TAB PO SCH (10:03)
[2022-11-12] MEDS: HYDROCHLOROTHIAZIDE 25 MG TABLET (FP) PO SCH (10:03)
[2022-11-12] MEDS: ROSUVASTATIN CA 20 MG TABLET PO SCH (21:23)
[2022-11-13] MEDS: CEFAZOLIN SODIUM 2 GM in DEXTROSE 5%-WATER 100 ML IVPB SCH ×3 (02:33→17:48)
[2022-11-13] MEDS: PANTOPRAZOLE 40 MG TABLET PO SCH (06:08)
[2022-11-13 07:44] LABS: BASO % 0.2 % (0-2.0); HEMATOCRIT 32.3 % (32.4-45.2); HEMOGLOBIN 10.6 GM/dL (10.7-15.3); LYMPH % 18.7 % (8-40); MCH 28.9 pg (25.7-33.7); MCHC 32.8 g/dl (32.0-36.0); MEAN PLT VOLUME 7.2 fl (7.5-11.1); MONO % 10.4 % (3.8-10.2); NEUT % 66.7 % (42.8-82.8); PLATELET COUNT 296 10^3/uL (134-434); RBC 3.67 M/mm3 (3.60-5.2); RDW 14.4 % (11.6-15.6); WHITE BLOOD COUNT 7.4 K/mm3 (4.0-10.0)
[2022-11-13 08:08] LABS: CALCIUM 8.1 mg/dL (8.5-10.1)
[2022-11-13 08:09] LABS: BLOOD UREA NITROGEN 15.5 mg/dL (7-18)
[2022-11-13 08:12] LABS: CREATININE 0.9 mg/dL (0.55-1.3)
[2022-11-13] MEDS: ASPIRIN 81 MG CHEWABLE TABLETS PO SCH (10:01)
[2022-11-13] MEDS: SOLIFENACIN SUCCINATE 5 MG TAB PO SCH (10:01)
[2022-11-13] MEDS: HYDROCHLOROTHIAZIDE 25 MG TABLET (FP) PO SCH (10:01)
[2022-11-13] MEDS: LOSARTAN POTASSIUM 50 MG TABLET PO SCH (10:01)
[2022-11-13] MEDS: NIFEdipine E.R. 90 MG TABLET PO SCH (10:01)
[2022-11-13] MEDS: POLYETHYLENE GLYCOL (HEALTHYLAX) 3350 17 GM PACKET PO SCH ×2 (10:02)
[2022-11-13] MEDS: ENOXAPARIN NA (PORCINE) 40 MG/0.4 ML DISP.SYRIN SQ SCH (10:02)
[2022-11-13] MEDS: ROSUVASTATIN CA 20 MG TABLET PO SCH (22:24)
[2022-11-14] MEDS: CEFAZOLIN SODIUM 2 GM in DEXTROSE 5%-WATER 100 ML IVPB SCH ×2 (02:01→10:30)
[2022-11-14] MEDS: PANTOPRAZOLE 40 MG TABLET PO SCH (06:28)
[2022-11-14 09:27] LABS: BASO % 0.3 % (0-2.0); EOS % 2.8 % (0-4.5); HEMATOCRIT 35.1 % (32.4-45.2); HEMOGLOBIN 11.7 GM/dL (10.7-15.3); LYMPH % 17.9 % (8-40); MCH 29.4 pg (25.7-33.7); MCHC 33.3 g/dl (32.0-36.0); MEAN CELL VOLUME 88.3 fl (80-96); MEAN PLT VOLUME 7.3 fl (7.5-11.1); MONO % 8.9 % (3.8-10.2); NEUT % 70.1 % (42.8-82.8); PLATELET COUNT 324 10^3/uL (134-434); RBC 3.97 M/mm3 (3.60-5.2); RDW 14.2 % (11.6-15.6); WHITE BLOOD COUNT 9.3 K/mm3 (4.0-10.0)
[2022-11-14] MEDS: ENOXAPARIN NA (PORCINE) 40 MG/0.4 ML DISP.SYRIN SQ SCH (10:29)
[2022-11-14] MEDS: POLYETHYLENE GLYCOL (HEALTHYLAX) 3350 17 GM PACKET PO SCH ×2 (10:30→10:31)
[2022-11-14] MEDS: ASPIRIN 81 MG CHEWABLE TABLETS PO SCH (10:31)
[2022-11-14] MEDS: LOSARTAN POTASSIUM 50 MG TABLET PO SCH (10:31)
[2022-11-14] MEDS: SOLIFENACIN SUCCINATE 5 MG TAB PO SCH (10:31)
[2022-11-14] MEDS: NIFEdipine E.R. 90 MG TABLET PO SCH (10:31)
[2022-11-14] MEDS: HYDROCHLOROTHIAZIDE 25 MG TABLET (FP) PO SCH (10:31)
[2022-11-14] MEDS: MINERAL OIL/PETROLAT/WATER TOPICAL CREAM 113 GM JAR TP PRN (14:35)
[2022-11-14] MEDS ORDERED: PIPERACILLIN/TAZOB 3.375 GM 3.375 GM in DEXTROSE 5%-WATER - 50 ML IVPB SCH ×2 (18:00→20:00)
[2022-11-14] MEDS: ROSUVASTATIN CA 20 MG TABLET PO SCH (21:40)
[2022-11-15] MEDS: PIPERACILLIN/TAZOB 3.375 GM 3.375 GM in DEXTROSE 5%-WATER - 50 ML IVPB SCH ×3 (01:11→18:03)
[2022-11-15] MEDS: PANTOPRAZOLE 40 MG TABLET PO SCH (06:01)
[2022-11-15 09:36] LABS: BASO % 0.3 % (0-2.0); EOS % 3.9 % (0-4.5); HEMATOCRIT 38.1 % (32.4-45.2); HEMOGLOBIN 12.4 GM/dL (10.7-15.3); LYMPH % 20.6 % (8-40); MCH 28.9 pg (25.7-33.7); MCHC 32.6 g/dl (32.0-36.0); MEAN CELL VOLUME 88.7 fl (80-96); MEAN PLT VOLUME 7.3 fl (7.5-11.1); MONO % 10.1 % (3.8-10.2); NEUT % 65.1 % (42.8-82.8); PLATELET COUNT 376 10^3/uL (134-434); RBC 4.29 M/mm3 (3.60-5.2); RDW 14.4 % (11.6-15.6); WHITE BLOOD COUNT 9.2 K/mm3 (4.0-10.0)
[2022-11-15 09:52] LABS: POTASSIUM 4.1 mmol/L (3.5-5.1)
[2022-11-15] MEDS: ASPIRIN 81 MG CHEWABLE TABLETS PO SCH (09:55)
[2022-11-15] MEDS: POLYETHYLENE GLYCOL (HEALTHYLAX) 3350 17 GM PACKET PO SCH ×2 (09:55)
[2022-11-15] MEDS: LOSARTAN POTASSIUM 50 MG TABLET PO SCH (09:56)
[2022-11-15] MEDS: SOLIFENACIN SUCCINATE 5 MG TAB PO SCH (09:56)
[2022-11-15] MEDS: ENOXAPARIN NA (PORCINE) 40 MG/0.4 ML DISP.SYRIN SQ SCH (09:56)
[2022-11-15] MEDS: HYDROCHLOROTHIAZIDE 25 MG TABLET (FP) PO SCH (09:56)
[2022-11-15] MEDS: NIFEdipine E.R. 90 MG TABLET PO SCH (09:56)
[2022-11-15 10:08] LABS: BLOOD UREA NITROGEN 17.3 mg/dL (7-18)
[2022-11-15 10:10] LABS: CREATININE 1.2 mg/dL (0.55-1.3)
[2022-11-15] MEDS: ROSUVASTATIN CA 20 MG TABLET PO SCH (21:28)
[2022-11-16] MEDS: PIPERACILLIN/TAZOB 3.375 GM 3.375 GM in DEXTROSE 5%-WATER - 50 ML IVPB SCH ×3 (04:09→17:13)
[2022-11-16] MEDS: PANTOPRAZOLE 40 MG TABLET PO SCH (07:11)
[2022-11-16 09:02] LABS: BASO % 0.2 % (0-2.0); EOS % 4.4 % (0-4.5); HEMATOCRIT 31.9 % (32.4-45.2); HEMOGLOBIN 11.1 GM/dL (10.7-15.3); LYMPH % 20.8 % (8-40); MCH 30.2 pg (25.7-33.7); MCHC 34.7 g/dl (32.0-36.0); MEAN CELL VOLUME 86.9 fl (80-96); MEAN PLT VOLUME 7.7 fl (7.5-11.1); MONO % 11.5 % (3.8-10.2); NEUT % 63.1 % (42.8-82.8); PLATELET COUNT 270 10^3/uL (134-434); RBC 3.67 M/mm3 (3.60-5.2); RDW 14.6 % (11.6-15.6); WHITE BLOOD COUNT 6.9 K/mm3 (4.0-10.0)
[2022-11-16 09:31] LABS: POTASSIUM 4.3 mmol/L (3.5-5.1)
[2022-11-16] MEDS: NIFEdipine E.R. 90 MG TABLET PO SCH (10:05)
[2022-11-16] MEDS: SOLIFENACIN SUCCINATE 5 MG TAB PO SCH (10:05)
[2022-11-16] MEDS: ASPIRIN 81 MG CHEWABLE TABLETS PO SCH (10:05)
[2022-11-16] MEDS: LOSARTAN POTASSIUM 50 MG TABLET PO SCH (10:06)
[2022-11-16] MEDS: ENOXAPARIN NA (PORCINE) 40 MG/0.4 ML DISP.SYRIN SQ SCH (10:06)
[2022-11-16] MEDS: HYDROCHLOROTHIAZIDE 25 MG TABLET (FP) PO SCH (10:06)
[2022-11-16] MEDS: POLYETHYLENE GLYCOL (HEALTHYLAX) 3350 17 GM PACKET PO SCH ×3 (10:06→11:28)
[2022-11-16 10:12] LABS: CALCIUM 8.3 mg/dL (8.5-10.1)
[2022-11-16 10:13] LABS: BLOOD UREA NITROGEN 18.4 mg/dL (7-18)
[2022-11-16] MEDS: ROSUVASTATIN CA 20 MG TABLET PO SCH (21:22)
[2022-11-17] MEDS: PIPERACILLIN/TAZOB 3.375 GM 3.375 GM in DEXTROSE 5%-WATER - 50 ML IVPB SCH ×3 (02:58→17:22)
[2022-11-17] MEDS: PANTOPRAZOLE 40 MG TABLET PO SCH (06:36)
[2022-11-17 08:44] LABS: BASO % 0.2 % (0-2.0); EOS % 6.1 % (0-4.5); HEMATOCRIT 33.1 % (32.4-45.2); LYMPH % 26.4 % (8-40); MCH 29.4 pg (25.7-33.7); MCHC 33.3 g/dl (32.0-36.0); MEAN CELL VOLUME 88.4 fl (80-96); MEAN PLT VOLUME 7.6 fl (7.5-11.1); MONO % 11.6 % (3.8-10.2); NEUT % 55.7 % (42.8-82.8); PLATELET COUNT 271 10^3/uL (134-434); RBC 3.74 M/mm3 (3.60-5.2); RDW 14.1 % (11.6-15.6); WHITE BLOOD COUNT 5.5 K/mm3 (4.0-10.0)
[2022-11-17 09:14] LABS: POTASSIUM 4.3 mmol/L (3.5-5.1)
[2022-11-17 09:15] LABS: CALCIUM 8.6 mg/dL (8.5-10.1)
[2022-11-17 09:16] LABS: BLOOD UREA NITROGEN 17.6 mg/dL (7-18)
[2022-11-17 09:19] LABS: CREATININE 0.9 mg/dL (0.55-1.3)
[2022-11-17] MEDS: NIFEdipine E.R. 90 MG TABLET PO SCH (10:32)
[2022-11-17] MEDS: SOLIFENACIN SUCCINATE 5 MG TAB PO SCH (10:32)
[2022-11-17] MEDS: ASPIRIN 81 MG CHEWABLE TABLETS PO SCH (10:32)
[2022-11-17] MEDS: LOSARTAN POTASSIUM 50 MG TABLET PO SCH (10:32)
[2022-11-17] MEDS: HYDROCHLOROTHIAZIDE 25 MG TABLET (FP) PO SCH (10:32)
[2022-11-17] MEDS: ENOXAPARIN NA (PORCINE) 40 MG/0.4 ML DISP.SYRIN SQ SCH (10:33)
[2022-11-17] MEDS: POLYETHYLENE GLYCOL (HEALTHYLAX) 3350 17 GM PACKET PO SCH ×2 (10:33)
[2022-11-17] MEDS: ROSUVASTATIN CA 20 MG TABLET PO SCH (21:30)
[2022-11-18] MEDS: PIPERACILLIN/TAZOB 3.375 GM 3.375 GM in DEXTROSE 5%-WATER - 50 ML IVPB SCH ×3 (02:59→17:17)
[2022-11-18] MEDS: PANTOPRAZOLE 40 MG TABLET PO SCH (06:06)
[2022-11-18] MEDS: POLYETHYLENE GLYCOL (HEALTHYLAX) 3350 17 GM PACKET PO SCH ×2 (09:38→09:39)
[2022-11-18] MEDS: LOSARTAN POTASSIUM 50 MG TABLET PO SCH (09:39)
[2022-11-18] MEDS: ASPIRIN 81 MG CHEWABLE TABLETS PO SCH (09:39)
[2022-11-18] MEDS: SOLIFENACIN SUCCINATE 5 MG TAB PO SCH (09:39)
[2022-11-18] MEDS: ENOXAPARIN NA (PORCINE) 40 MG/0.4 ML DISP.SYRIN SQ SCH (09:39)
[2022-11-18] MEDS: NIFEdipine E.R. 90 MG TABLET PO SCH (09:39)
[2022-11-18] MEDS: HYDROCHLOROTHIAZIDE 25 MG TABLET (FP) PO SCH (09:39)
[2022-11-18] MEDS: ROSUVASTATIN CA 20 MG TABLET PO SCH (22:40)
[2022-11-19] MEDS: PIPERACILLIN/TAZOB 3.375 GM 3.375 GM in DEXTROSE 5%-WATER - 50 ML IVPB SCH ×3 (02:46→18:12)
[2022-11-19] MEDS: PANTOPRAZOLE 40 MG TABLET PO SCH (06:52)
[2022-11-19] MEDS: ENOXAPARIN NA (PORCINE) 40 MG/0.4 ML DISP.SYRIN SQ SCH (09:45)
[2022-11-19] MEDS: POLYETHYLENE GLYCOL (HEALTHYLAX) 3350 17 GM PACKET PO SCH ×2 (09:46)
[2022-11-19] MEDS: LOSARTAN POTASSIUM 50 MG TABLET PO SCH (09:46)
[2022-11-19] MEDS: SOLIFENACIN SUCCINATE 5 MG TAB PO SCH (09:46)
[2022-11-19] MEDS: ASPIRIN 81 MG CHEWABLE TABLETS PO SCH (09:46)
[2022-11-19] MEDS: NIFEdipine E.R. 90 MG TABLET PO SCH (09:46)
[2022-11-19] MEDS: HYDROCHLOROTHIAZIDE 25 MG TABLET (FP) PO SCH (09:47)
[2022-11-19] MEDS: ROSUVASTATIN CA 20 MG TABLET PO SCH (21:26)
[2022-11-20] MEDS: PIPERACILLIN/TAZOB 3.375 GM 3.375 GM in DEXTROSE 5%-WATER - 50 ML IVPB SCH (02:57)
[2022-11-20] MEDS: PANTOPRAZOLE 40 MG TABLET PO SCH (06:08)
[2022-11-20] MEDS: ENOXAPARIN NA (PORCINE) 40 MG/0.4 ML DISP.SYRIN SQ SCH (10:19)
[2022-11-20] MEDS: SOLIFENACIN SUCCINATE 5 MG TAB PO SCH (10:20)
[2022-11-20] MEDS: ASPIRIN 81 MG CHEWABLE TABLETS PO SCH (10:20)
[2022-11-20] MEDS: POLYETHYLENE GLYCOL (HEALTHYLAX) 3350 17 GM PACKET PO SCH ×2 (10:20)
[2022-11-20] MEDS: HYDROCHLOROTHIAZIDE 25 MG TABLET (FP) PO SCH (10:20)
[2022-11-20] MEDS: LOSARTAN POTASSIUM 50 MG TABLET PO SCH (10:20)
[2022-11-20] MEDS: NIFEdipine E.R. 90 MG TABLET PO SCH (10:20)
[2022-11-20] MEDS: ROSUVASTATIN CA 20 MG TABLET PO SCH (21:19)
[2022-11-21] MEDS: PANTOPRAZOLE 40 MG TABLET PO SCH (06:16)
[2022-11-21] MEDS: ASPIRIN 81 MG CHEWABLE TABLETS PO SCH (09:43)
[2022-11-21] MEDS: HYDROCHLOROTHIAZIDE 25 MG TABLET (FP) PO SCH (09:43)
[2022-11-21] MEDS: NIFEdipine E.R. 90 MG TABLET PO SCH (09:43)
[2022-11-21] MEDS: LOSARTAN POTASSIUM 50 MG TABLET PO SCH (09:44)
[2022-11-21] MEDS: ENOXAPARIN NA (PORCINE) 40 MG/0.4 ML DISP.SYRIN SQ SCH (09:44)
[2022-11-21 10:50] VITALS: BP 122/73; PULSE 63; RESP 18; TEMP 98.3
== END 2022-11-21 11:30 | disposition home or self-care (01) | DRG 603 ==
LOC: JER 13:33 → JERBED 17:22 → J7W 11-10 10:03
PROVIDERS: ADMIT Family Medicine; ATTEND Family Medicine
DX: L03.115 Cellulitis of right lower limb (principal); I50.32 Chronic diastolic (congestive) heart failure; L03.116 Cellulitis of left lower limb; K21.9 Gastro-esophageal reflux disease without esophagitis; I89.0 Lymphedema, not elsewhere classified; E78.5 Hyperlipidemia, unspecified; I11.0 Hypertensive heart disease with heart failure; J45.909 Unspecified asthma, uncomplicated; G62.89 Other specified polyneuropathies; J44.9 Chronic obstructive pulmonary disease, unspecified; D72.829 Elevated white blood cell count, unspecified; L85.3 Xerosis cutis; B35.1 Tinea unguium; E66.9 Obesity, unspecified; Z68.35 Body mass index [BMI] 35.0-35.9, adult; B96.5 Pseudomonas (aeruginosa) (mallei) (pseudomallei) as the cause of diseases classified elsewhere; B95.62 Methicillin resistant Staphylococcus aureus infection as the cause of diseases classified elsewhere
CPT/HCPCS: 36415; 71045-TC-FY; 73590-TC-LT-FY; 73590-TC-RT-FY; 73630-TC-LT; 73630-TC-RT-FY; 75635-TC; 80048; 80053; 85025; 85610; 85730; 86850; 86900; 86901; 87040; 87070; 87186; 87205; 93005; 93010; 93970-TC; 97116-GP; 97162-GP; 99285-25; Q9967